=== PATIENT | female | born 1950 | race Caucasian/White ===

== ENCOUNTER → 2018-08-18 | Outpatient (CLI) | payer MEDICARE, BC ==
[2018-08-18 16:12] LABS: Anisocytosis Slight; HCT 35.9 % (34.0-46.0); HGB 11.4 gm/dL (11.4-16.0); MCH 29.3 pg (25.0-35.0); MCHC 31.8 g/dL (31.0-37.0); MCV 92.1 fL (80.0-100.0); Mean Platelet Volume 6.6; Platelet Count 269 k/uL (150-450); RDW 16.4 % (11.5-15.5); WBC 5.3 k/uL (3.8-10.6)
[2018-08-18 16:25] LABS: T4, Free (Free Thyroxine) 0.85 ng/dL (0.78-2.19)
== END ==
LOC: LABWHC1 15:16
PROVIDERS: ATTEND Internal Medicine Endocrinology, Diabetes & Metabolism
DX: E05.20 Thyrotoxicosis with toxic multinodular goiter without thyrotoxic crisis or storm (principal); E66.3 Overweight
CPT/HCPCS: 36415; 84439; 84443; 84450; 84460; 84481; 85027

== ENCOUNTER → 2018-09-05 | Outpatient (CLI) | payer MEDICARE, BC ==
--- NOTE | 2018-09-05 15:26 | US ---
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 GLAND SIZE: Right Lobe: 5.8 x 2.4 x 2.6 cm Overall Parenchyma: heterogenous Left Lobe: 5.6 x 2.0 x 2.1 cm Overall Parenchyma: heterogeneous Isthmus Thickness: 0.6 cm NODULES RIGHT: # of nodules measured on right: 4 1. 2.6 X 2.1 x 2.1 cm hypoechoic mixed nodule at the lower pole with well-defined margins; present with microcalcifications. This nodule is wider than tall and shows intranodular vascularity. Prior size: no prior 2. 1.1 X 0.9 x 1.0 cm hypoechoic mixed nodule at the upper pole with well-defined margins; . This n odule is wider than tall and shows intranodular vascularity. Prior size: no prior 3. 1.1 X 0.7 x 0.9 cm isoechoic mixed nodule at the upper pole with well-defined margins; . This no dule is wider than tall and shows intranodular vascularity. Prior size: no prior 4. 2.0 X 1.8 x 1.9 cm isoechoic mixed nodule at the mid pole with well-defined margins; . This nodu le is wider than tall and shows intranodular vascularity. Prior size: no prior LEFT: # of nodules measured on left: 1 1. 1.9 X 1.0 x 1.5 cm isoechoic mixed nodule at the mid pole with well-defined margins; . This nod ule is wider than tall and shows intranodular vascularity. Prior size: no prior ISTHMUS: # of nodules measured in the isthmus: 0 Bilateral neck scanned, no evidence of lymphadenopathy. There are bilaterally numerous nodules seen. the most prominent on the right are measured.Three are l ateral and the largest with calcifications is located medially. On the left lobe there are numerous n odules that are difficult to distinguish individually. One nodule measured that has distinct borders. IMPRESSION: 1. Multinodular goiter. 2. There are some lymph nodes larger than 1 cm within the right lobe thyroid. Consider correlation [facility] scan. Consider biopsy.
== END | disposition home or self-care (01) ==
LOC: RADUSWWP 14:44
PROVIDERS: ATTEND Internal Medicine Endocrinology, Diabetes & Metabolism
DX: E05.20 Thyrotoxicosis with toxic multinodular goiter without thyrotoxic crisis or storm (principal); E66.3 Overweight
CPT/HCPCS: 76536

== ENCOUNTER → 2018-11-27 | Outpatient (CLI) | payer MEDICARE, BC ==
[2018-11-27 12:51] LABS: HCT 38.4 % (34.0-46.0); HGB 12.5 gm/dL (11.4-16.0); MCH 30.7 pg (25.0-35.0); MCHC 32.5 g/dL (31.0-37.0); MCV 94.3 fL (80.0-100.0); Platelet Count 256 k/uL (150-450); RBC 4.07 m/uL (3.80-5.40); RDW 14.6 % (11.5-15.5); WBC 4.3 k/uL (3.8-10.6)
[2018-11-27 20:30] LABS: T4, Free (Free Thyroxine) 1.1 ng/dL (0.80-1.80)
== END | disposition home or self-care (01) ==
LOC: LABWHC1 11:34
PROVIDERS: ATTEND Internal Medicine Endocrinology, Diabetes & Metabolism
DX: E05.20 Thyrotoxicosis with toxic multinodular goiter without thyrotoxic crisis or storm (principal); E66.3 Overweight; D70.2 Other drug-induced agranulocytosis; K71.9 Toxic liver disease, unspecified
CPT/HCPCS: 36415; 84439; 84443; 84450; 84460; 84481; 85027

== ENCOUNTER → 2018-12-15 | Outpatient (CLI) | payer MEDICARE, BC ==
--- NOTE | 2018-12-16 02:03 | MR ---
EXAMINATION TYPE: MR iac wo/w con DATE OF EXAM: 12/15/2018 COMPARISON: None HISTORY: Rt sided hearing loss, dizziness TECHNIQUE: Multiplanar, multisequence images of the brain and brainstem is performed without and with IV contras t, utilizing 7.5 mL intravenous Gadavist . FINDINGS: There is mild cerebral cortical atrophy. There is no mass effect nor midline shift. There i s no sign of intracranial hemorrhage. There is no evidence of a cortical infarct. Brainstem is intact . There are stable tiny areas of increased signal in the white matter of both cerebral hemispheres th at measure up to 3 mm of doubtful significance. This could relate to minimal chronic small vessel isc hemia. Brainstem appears intact. Corpus callosum is intact. Sella turcica appears normal. The acoustic nerve and vestibular nerves appear normal. Internal auditory canals appear normal. There is no evidence of cerebellopontine angle mass. Temporal bones have normal signal pattern. There is no evidence of mast oiditis. The contrast images show no pathologic enhancement. There is normal enhancement of the venou s sinuses. IMPRESSION: There is cerebral atrophy appropriate for age. Negative MR scan of the internal auditory canals. I do not see a cause for hearing loss.
== END | disposition home or self-care (01) ==
LOC: RADMRIMAIN 12:42
PROVIDERS: ATTEND Otolaryngology
DX: G31.9 Degenerative disease of nervous system, unspecified (principal)
CPT/HCPCS: 82565; 70553; 36415; A9585

== ENCOUNTER → 2019-01-05 | Outpatient (CLI) | payer MEDICARE, BC ==
[2019-01-05 15:48] LABS: HCT 39.6 % (34.0-46.0); HGB 12.8 gm/dL (11.4-16.0); MCH 30.2 pg (25.0-35.0); MCHC 32.4 g/dL (31.0-37.0); MCV 93.1 fL (80.0-100.0); Mean Platelet Volume 6.7; Platelet Count 293 k/uL (150-450); RBC 4.25 m/uL (3.80-5.40); RDW 14.3 % (11.5-15.5); WBC 5.8 k/uL (3.8-10.6)
== END | disposition home or self-care (01) ==
LOC: LABWHC1 14:55
PROVIDERS: ATTEND Internal Medicine Endocrinology, Diabetes & Metabolism
DX: D70.2 Other drug-induced agranulocytosis (principal); K71.9 Toxic liver disease, unspecified; E66.3 Overweight; E05.20 Thyrotoxicosis with toxic multinodular goiter without thyrotoxic crisis or storm
CPT/HCPCS: 36415; 84439; 84443; 84450; 84460; 84481; 85027

== ENCOUNTER → 2019-03-24 | Outpatient (CLI) | payer MEDICARE, BC ==
[2019-03-25 00:40] LABS: T4, Free (Free Thyroxine) 0.8 ng/dL (0.80-1.80)
== END | disposition home or self-care (01) ==
LOC: LABWHC1 15:40
PROVIDERS: ATTEND Internal Medicine Endocrinology, Diabetes & Metabolism
DX: D70.2 Other drug-induced agranulocytosis (principal); K71.9 Toxic liver disease, unspecified; E05.20 Thyrotoxicosis with toxic multinodular goiter without thyrotoxic crisis or storm
CPT/HCPCS: 36415; 84439; 84443

== ENCOUNTER → 2019-04-20 | Outpatient (CLI) | payer MEDICARE, BC ==
--- NOTE | 2019-04-29 09:52 | MM ---
Reason for exam: screening (asymptomatic). Last mammogram was performed 2 years and 8 months ago. History: Patient is postmenopausal, has history of colon cancer at age 63, history of other cancer, and is nulliparous. Physical Findings: A clinical breast exam by your physician is recommended on an annual basis and results should be correlated with mammographic findings. MG 3D Screening Mammo W/Cad Bilateral CC and MLO view(s) were taken. Prior study comparison: August 07, 2016, mammogram. March 15, 2014, mammogram. The breast tissue is heterogeneously dense. This may lower the sensitivity of mammography. Stable benign calcifications. There is no discrete abnormality. No significant changes when compared with prior studies. ASSESSMENT: Benign, BI-RAD 2 RECOMMENDATION: Routine screening mammogram of both breasts in 1 year.
== END | disposition home or self-care (01) ==
LOC: RADMAMWWP 14:28
PROVIDERS: ATTEND Internal Medicine
DX: Z12.31 Encounter for screening mammogram for malignant neoplasm of breast (principal)
CPT/HCPCS: 77063; 77067

== ENCOUNTER → 2019-05-06 | Outpatient (CLI) | payer MEDICARE, BC | END | disposition home or self-care (01) | LOC: LABWHC1 15:30 | PROVIDERS: ATTEND Internal Medicine Endocrinology, Diabetes & Metabolism | DX: D70.2 Other drug-induced agranulocytosis (principal); E05.20 Thyrotoxicosis with toxic multinodular goiter without thyrotoxic crisis or storm; K71.9 Toxic liver disease, unspecified | CPT/HCPCS: 36415; 84439; 84443 ==

== ENCOUNTER → 2019-07-06 | Outpatient (CLI) | payer MEDICARE, BC ==
[2019-07-06 14:18] LABS: HGB 12.3 gm/dL (11.4-16.0); MCHC 33.3 g/dL (31.0-37.0); MCV 92.9 fL (80.0-100.0); Mean Platelet Volume 6.9; Platelet Count 228 k/uL (150-450); RBC 3.98 m/uL (3.80-5.40); RDW 14.7 % (11.5-15.5); WBC 4.9 k/uL (3.8-10.6)
[2019-07-06 14:30] LABS: ALT 32 U/L (9-52); AST 31 U/L (14-36); African American GFR (CKD) >90 (>60 ml/min/1.73 sqM); Albumin 4.4 g/dL (3.5-5.0); Alkaline Phosphatase 110 U/L (38-126); Anion Gap 6 mmol/L; Blood Urea Nitrogen 19 mg/dL (7-17); Calcium 9.5 mg/dL (8.4-10.2); Carbon Dioxide 32 mmol/L (22-30); Chloride 102 mmol/L (98-107); Glucose 136 mg/dL (74-99); Potassium 4.6 mmol/L (3.5-5.1); Sodium 140 mmol/L (137-145); Total Bilirubin 0.4 mg/dL (0.2-1.3); Total Protein 7.3 g/dL (6.3-8.2)
--- NOTE | 2019-07-06 15:47 | CT ---
EXAMINATION TYPE: CT abdomen pelvis w con DATE OF EXAM: 07/06/2019 COMPARISON: None HISTORY: Malignant neoplasm of sigmoid colon. CT DLP: 867.2 mGycm CONTRAST: CT scan of the abdomen and pelvis is performed with Oral Contrast and with IV Contrast, patient injec vy with 100ml mL of Isovue 300. FINDINGS: LUNG BASES-: No visible nodule. No infiltrate. Basilar linear atelectasis or parenchymal scarring. LIVER/GB: Kurtis drainage catheter noted in place. Cholecystectomy clips identified. Intrahepatic bili jere ductal dilatation with small amount of pneumobilia. No space-occupying hepatic lesions detected. PANCREAS: No inflammation. No distinct mass. SPLEEN: No splenic enlargement. No lesion seen. ADRENALS: No nodule. No thickening. KIDNEYS/BLADDER: No hydronephrosis. No nephrolithiasis. No distinct renal mass. Urinary bladder g rossly unremarkable. BOWEL: Normal appendix. Partial resection sigmoid colon without evidence for recurrent mass. Normal bowel caliber. No inflammation. GENITAL ORGANS: No gross abnormality. LYMPH NODES: No greater than 1cm abdominal or pelvic lymph nodes are appreciated. AORTA: No significant abnormality. OSSEOUS STRUCTURES: No significant abnormality is seen. OTHER: No significant additional abnormality is seen. IMPRESSION: 1. No evidence for metastatic disease or recurrent disease. 2. Biliary catheter with intrahepatic biliary ductal dilatation and small amount of pneumobilia.
== END | disposition home or self-care (01) ==
LOC: RADCTMAIN 13:20
PROVIDERS: ATTEND Internal Medicine
DX: K83.8 Other specified diseases of biliary tract (principal); D64.9 Anemia, unspecified
CPT/HCPCS: 80053; 85027; 74177; 36415; Q9967

== ENCOUNTER → 2019-07-20 | Outpatient (CLI) | payer MEDICARE, BC ==
[2019-07-20 14:44] LABS: HGB 11.6 gm/dL (11.4-16.0); MCH 30.4 pg (25.0-35.0); MCHC 32.3 g/dL (31.0-37.0); MCV 94.1 fL (80.0-100.0); Mean Platelet Volume 6.4; Platelet Count 256 k/uL (150-450); RBC 3.83 m/uL (3.80-5.40); RDW 14.8 % (11.5-15.5); WBC 5.1 k/uL (3.8-10.6)
[2019-07-20 20:20] LABS: T4, Free (Free Thyroxine) 0.9 ng/dL (0.80-1.80)
== END | disposition home or self-care (01) ==
LOC: LABWHC1 13:46
PROVIDERS: ATTEND Internal Medicine Endocrinology, Diabetes & Metabolism
DX: D70.2 Other drug-induced agranulocytosis (principal); K71.9 Toxic liver disease, unspecified; E05.21 Thyrotoxicosis with toxic multinodular goiter with thyrotoxic crisis or storm
CPT/HCPCS: 36415; 84439; 84443; 84450; 84460; 85027

== ENCOUNTER → 2019-09-08 | Outpatient (CLI) | payer MEDICARE, BC ==
[2019-09-08 14:13] LABS: HCT 37.2 % (34.0-46.0); HGB 12.3 gm/dL (11.4-16.0); MCH 31.6 pg (25.0-35.0); MCV 95.9 fL (80.0-100.0); Mean Platelet Volume 5.5; Platelet Count 269 k/uL (150-450); RBC 3.88 m/uL (3.80-5.40); WBC 5.1 k/uL (3.8-10.6)
[2019-09-08 20:00] LABS: T4, Free (Free Thyroxine) 0.9 ng/dL (0.80-1.80)
== END | disposition home or self-care (01) ==
LOC: LABWHC1 13:23
PROVIDERS: ATTEND Internal Medicine Endocrinology, Diabetes & Metabolism
DX: E05.21 Thyrotoxicosis with toxic multinodular goiter with thyrotoxic crisis or storm (principal); K71.9 Toxic liver disease, unspecified; D70.2 Other drug-induced agranulocytosis
CPT/HCPCS: 36415; 84439; 84443; 84450; 84460; 85027

== ENCOUNTER → 2019-10-12 | Outpatient (CLI) | payer MEDICARE, BC ==
[2019-10-12 14:06] LABS: Basophils % (A) 1 %; Eosinophils % (A) 1 %; HCT 39.6 % (34.0-46.0); HGB 12.8 gm/dL (11.4-16.0); Lymphocytes # (A) 1.1 k/uL (1.0-4.8); Lymphocytes % (A) 26 %; MCH 30.7 pg (25.0-35.0); MCHC 32.3 g/dL (31.0-37.0); MCV 95.2 fL (80.0-100.0); Mean Platelet Volume 6.9; Monocytes # (A) 0.2 k/uL (0-1.0); Monocytes % (A) 4 %; Neutrophils # (A) 2.8 k/uL (1.3-7.7); Neutrophils % (A) 66 %; Platelet Count 261 k/uL (150-450); RBC 4.16 m/uL (3.80-5.40); RDW 14.1 % (11.5-15.5); WBC 4.1 k/uL (3.8-10.6)
[2019-10-12 19:24] LABS: % Iron Saturation 26.81 (12.00-45.00); Albumin 4.4 g/dL (3.80-4.90); Albumin/Globulin Ratio 2.44 (1.60-3.17); Anion Gap 5.9 mmol/L (4.00-12.00); BUN/Creat Ratio 28.33 Ratio (12.00-20.00); Calcium 9.3 mg/dL (8.7-10.3); Carbon Dioxide 29.1 mmol/L (21.6-31.8); Globulin 1.8 g/dL (1.6-3.3); Non-African American GFR(CKD) 92.4 (60.0-200.0); Potassium 4.5 mmol/L (3.5-5.5); Total Bilirubin 0.3 mg/dL (0.2-1.2); Total Protein 6.2 g/dL (6.2-8.2)
[2019-10-12 19:43] LABS: Ferritin 18.8 ng/mL (10.0-291.0)
== END | disposition home or self-care (01) ==
LOC: LABWHC1 13:15
PROVIDERS: ATTEND Internal Medicine
DX: C18.7 Malignant neoplasm of sigmoid colon (principal); D64.9 Anemia, unspecified
CPT/HCPCS: 36415; 80053; 82378; 82728; 83540; 83550; 85025

== ENCOUNTER → 2019-10-15 | Outpatient (CLI) | payer MEDICARE, BC ==
--- NOTE | 2019-10-15 15:20 | CT ---
EXAMINATION TYPE: CT ChestAbdPelvis wo/w con DATE OF EXAM: 10/15/2019 COMPARISON: CT abdomen and pelvis July 06, 2019 HISTORY: F/u sigmoid ca/adenocarcinoma. CT DLP: 1754.90 mGycm. Automated Exposure Control for Dose Reduction was Utilized. CONTRAST: CT scan of the thorax, abdomen and pelvis is performed with oral and without and with IV Contrast, pa tient injected with 100 mL of Isovue 300. FINDINGS: LUNGS: There are some patchy bibasilar lower long linear scarring and/or atelectasis. No suspicious n ew nodules or masses. MEDIASTINUM: There are no greater than 1 cm hilar or mediastinal lymph nodes. No pericardial effus ion is seen. Mild cardiomegaly redemonstrated. There are scattered thyroid nodules correlate with kn own multinodular thyroid ultrasound September 05, 2018. LIVER/GB: There is persistent percutaneous or external biliary drainage catheter from right aspect wi th stable [id number] intrahepatic biliary dilatation particularly along catheter and pneumobili a left hepatic lobe. Portion of catheter extends into bowel loops similar to prior. Cholecystectomy c lips redemonstrated no heidi hepatis. PANCREAS: Stable ductal dilatation pancreas more prominent near head axial image 26. SPLEEN: No significant abnormality is seen. ADRENALS: No significant abnormality is seen. KIDNEYS: Simple-appearing subcentimeter cyst laterally left kidney image 22 series 8 likely stable. BOWEL: Oral contrast does not reach distal ileal level making evaluation of bowel slightly suboptimal . Surgical sutures from prior colonic surgery and anastomosis sigmoid rectal level pelvis coronal dedra ge 57 are redemonstrated. No suspicious new smaller large bowel dilatation. Some prominence of fecal material throughout the colon noted. Mild wall thickening and mural enhancement and terminal ileum ri ght pelvis coronal image 32. Reference could reflect acute inflammatory change. No suspicious small o r large bowel dilatation. There are suspected distal gastrectomy with nonvisualization of antrum and proximal duodenum and anastomosis of stomach to a prominent bowel loop just inferior to it coronal im age 23 reference. This is unchanged from prior. GENITAL ORGANS: Uterus surgically absent. LYMPH NODES: No greater than 1cm abdominal or pelvic lymph nodes are appreciated. OSSEOUS STRUCTURES: Moderate narrowing of both hip joints.. Multilevel severe narrowing in the visual ized spine. Disc space narrowing lumbosacral junction. Slightly exaggerated thoracic kyphosis. OTHER: No significant additional abnormality is seen. IMPRESSION: No suspicious new mass or adenopathy to suggest neoplastic recurrence.
== END | disposition home or self-care (01) ==
LOC: RADCTMAIN 12:33
PROVIDERS: ATTEND Internal Medicine
DX: C18.7 Malignant neoplasm of sigmoid colon (principal); D64.9 Anemia, unspecified
CPT/HCPCS: 71270; 74178; 36415; Q9967

== ENCOUNTER → 2020-03-01 | Outpatient (CLI) | payer MEDICARE, BC ==
[2020-03-01 12:07] LABS: HCT 37.1 % (34.0-46.0); HGB 11.6 gm/dL (11.4-16.0); Hypochromasia Slight; MCH 30.4 pg (25.0-35.0); MCHC 31.2 g/dL (31.0-37.0); MCV 97.6 fL (80.0-100.0); Mean Platelet Volume 6.9; Platelet Count 223 k/uL (150-450); RDW 14.1 % (11.5-15.5); WBC 4.2 k/uL (3.8-10.6)
== END | disposition home or self-care (01) ==
LOC: LABWHC1 10:54
PROVIDERS: ATTEND Internal Medicine Endocrinology, Diabetes & Metabolism
DX: E05.20 Thyrotoxicosis with toxic multinodular goiter without thyrotoxic crisis or storm (principal); K71.9 Toxic liver disease, unspecified; D70.2 Other drug-induced agranulocytosis; E66.8 Other obesity
CPT/HCPCS: 36415; 84439; 84443; 84450; 84460; 84481; 85027

== ENCOUNTER 2020-05-12 05:48 | Inpatient (IN) | payer MEDICARE, BC ==
[2020-05-12] MEDS ORDERED: PANTOPRAZOLE 40 MG/10 ML VIAL IVP STA (06:10)
[2020-05-12] MEDS ORDERED: MORPHINE SULFATE 4 MG/ML SYRINGE IV STA (06:10)
[2020-05-12] MEDS ORDERED: SODIUM CHLORIDE 0.9% 1,000 ML IV STA ×2 (06:10)
[2020-05-12] MEDS ORDERED: ONDANSETRON 4 MG/2 ML VIAL IVP STA (06:10)
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
[2020-05-12 06:35] LABS: Basophils % (A) 0 %; Eosinophils # (A) 0.1 k/uL (0-0.7); Eosinophils % (A) 1 %; HCT 37.9 % (34.0-46.0); HGB 12.5 gm/dL (11.4-16.0); Lymphocytes # (A) 0.5 k/uL (1.0-4.8); Lymphocytes % (A) 7 %; MCH 31.6 pg (25.0-35.0); MCV 95.8 fL (80.0-100.0); Mean Platelet Volume 6.8; Monocytes # (A) 0.3 k/uL (0-1.0); Monocytes % (A) 4 %; Neutrophils # (A) 6.7 k/uL (1.3-7.7); Neutrophils % (A) 88 %; Platelet Count 243 k/uL (150-450); RBC 3.96 m/uL (3.80-5.40); WBC 7.7 k/uL (3.8-10.6)
[2020-05-12 06:47] LABS: ALT 23 U/L (4-34); AST 26 U/L (14-36); African American GFR (CKD) >90 (>60 ml/min/1.73 sqM); Albumin 4.3 g/dL (3.5-5.0); Alkaline Phosphatase 121 U/L (38-126); Amylase 136 U/L (30-110); Anion Gap 7 mmol/L; Blood Urea Nitrogen 16 mg/dL (7-17); Calcium 9.6 mg/dL (8.4-10.2); Carbon Dioxide 27 mmol/L (22-30); Chloride 106 mmol/L (98-107); Glucose 169 mg/dL (74-99); Non-African American GFR(CKD) >90 (>60 ml/min/1.73 sqM); Sodium 140 mmol/L (137-145); Total Bilirubin 0.6 mg/dL (0.2-1.3); Total Protein 6.9 g/dL (6.3-8.2)
[2020-05-12] MEDS ORDERED: diphenhydrAMINE 50 MG/ML 1 ML VIAL IVP STA (06:51)
[2020-05-12] MEDS ORDERED: METOCLOPRAMIDE 5 MG/ML 2 ML VIAL IVP STA (06:51)
[2020-05-12 06:56] LABS: Prothrombin Time 10.3 sec (9.0-12.0)
[2020-05-12 06:59] LABS: Partial Thromboplastin Time 21.9 sec (22.0-30.0)
[2020-05-12 07:24] LABS: Appearance,Urine Clear (Clear); Bilirubin,Urine Negative (Negative); Blood,Urine Small (Negative); Calcium Oxalate Crystals,Urine Occasional /hpf; Color,Urine Yellow; Glucose,Urine (UA) Trace (Negative); Hyaline Casts,Urine 1 /lpf (0-2); Ketones,Urine 1+ (Negative); Leukocyte Esterase,Urine Negative (Negative); Mucus,Urine Few /hpf; Nitrite,Urine Negative (Negative); Protein,Urine Trace (Negative); RBC,Urine 6 /hpf (0-5); Specific Gravity,Urine 1.024 (1.001-1.035); Squamous Epithelial Cell,Urine <1 /hpf (0-4); Urobilinogen,Urine <2.0 mg/dL (<2.0); WBC,Urine 1 /hpf (0-5)
--- NOTE | 2020-05-12 08:28 | CT ---
EXAMINATION TYPE: CT abdomen pelvis w con DATE OF EXAM: 05/12/2020 COMPARISON: 10/15/2019 HISTORY: 69-year-old female with left-sided abdominal pain, Hx biliary drain TECHNIQUE: Contiguous axial scanning of the abdomen and pelvis following administration of 100 ml Iso jose luis 300 IV contrast. Delayed images through the kidneys and coronal/sagittal reconstructions perform ed. CT DLP: 899.9 mGycm Automated exposure control for dose reduction was used. FINDINGS: Heart upper limits of normal in size without pericardial effusion. Strandy atelectasis in the lower l ungs. No pleural effusion. There is an internal/external biliary drain which enters the right hepatic lobe. There are radiopaque marker is at the margin of the liver. An area of hypodensity running along the superior to the shailesh ter tract is unchanged and may relate to either scarring or focal intrahepatic ductal dilatation. There is continued mild intrahepatic biliary ductal dilatation within the left hepatic lobe. Pneumobi nila has increased in the interval. 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 Otherwise, the portal venous system appears patent. A gastrojejunostomy is present. There is edematous wall thickening of the stomach with surrounding fat stranding and tracking edema. Some of this tracking edema encompasses the retroperitoneum and peripancreatic region. There is incre ase in the degree of dilatation of the main pancreatic duct now obtained millimeters versus 4 mm, pre viously. No discrete well-formed fluid collection is identified. Edema tracks down the left retroperitoneum. No dilated small bowel are otherwise any free fluid or free air. A few mildly enlarged mid mesenteric lymph nodes are unchanged measuring up to 9 mm, refer to coronal image 33. Some tightly clustered small bowel loops in the anterior pelvis. Normal appendix. There is moderate stool burden. No pericolonic inflammatory change. Bladder under distended. Uterus surgically absent. Neither ovary clearly seen. There is a staple line at the rectosigmoid junction from prior bowel resection and re-anastomosis. Bones: Moderate to severe degenerative change left hip. Mild to moderate degenerative disc disease mi d to lower lumbar spine along with hypertrophic facet arthropathy. IMPRESSION: 1. STATUS POST GASTROJEJUNOSTOMY. MODERATE EDEMATOUS THICKENING AND INFLAMMATION SEEMS TO BE CENTERED AT THE BODY OF THE STOMACH. INFLAMMATION SEEMS TO TRACK ALONG THE RETROPERITONEUM AND ALSO INVOLVE T HE PANCREATIC BODY. THERE IS INCREASE IN DEGREE OF MAIN PANCREATIC DUCT DILATATION UP TO 8 MM NOW MARIUM JUANITA 4 MM, PREVIOUSLY. CORRELATE FOR ACUTE INTERSTITIAL PANCREATITIS AND/OR ACUTE GASTRITIS. 2. THERE IS INFLAMMATORY EDEMA TRACKING DOWN THE LEFT RETROPERITONEUM BUT NO DISCRETE PERIPANCREATIC FLUID COLLECTION. 3. A RIGHT-SIDED EXTERNAL/INTERNAL BILIARY DRAIN REMAINS IN PLACE. THERE IS SIMILAR MILD INTRAHEPATIC BILIARY DUCTAL DILATATION. PNEUMOBILIA HAS INCREASED IN THE INTERVAL POSSIBLY RELATING TO CATHETER O R DRAINAGE BAG MANIPULATION. CLINICALLY CORRELATE. THE RADIOPAQUE MARKER REMAINS SITUATED ALONG THE P ERIPHERY OF THE LIVER. 4. 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
[2020-05-12] MEDS ORDERED: NALOXONE 0.4 MG/ML 1 ML VIAL IV PRN (09:48)
[2020-05-12] MEDS ORDERED: KETOROLAC 30 MG/ML 1 ML VIAL IVP PRN (09:48)
[2020-05-12] MEDS ORDERED: ACETAMINOPHEN TAB 325 MG TAB PO PRN (09:48)
[2020-05-12] MEDS ORDERED: ONDANSETRON 4 MG/2 ML VIAL IVP PRN (09:48)
[2020-05-12] MEDS: MORPHINE SULFATE 4 MG/ML SYRINGE IV PRN ×2 (11:07→18:42)
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
[2020-05-12] MEDS: SODIUM CHLORIDE 0.9% 1,000 ML IV SCH ×2 (17:17→22:34)
[2020-05-13] MEDS: MORPHINE SULFATE 4 MG/ML SYRINGE IV PRN (04:35)
[2020-05-13] MEDS: SODIUM CHLORIDE 0.9% 1,000 ML IV SCH (06:17)
[2020-05-13 07:49] LABS: HGB 10.5 gm/dL (11.4-16.0); MCH 31.8 pg (25.0-35.0); MCHC 32.9 g/dL (31.0-37.0); MCV 96.4 fL (80.0-100.0); Platelet Count 194 k/uL (150-450); RBC 3.32 m/uL (3.80-5.40); RDW 13.8 % (11.5-15.5); WBC 3.9 k/uL (3.8-10.6)
[2020-05-13 08:07] LABS: ALT 16 U/L (4-34); AST 18 U/L (14-36); African American GFR (CKD) >90 (>60 ml/min/1.73 sqM); Alkaline Phosphatase 85 U/L (38-126); Anion Gap 2 mmol/L; Blood Urea Nitrogen 16 mg/dL (7-17); Calcium 8.3 mg/dL (8.4-10.2); Carbon Dioxide 28 mmol/L (22-30); Chloride 109 mmol/L (98-107); Glucose 115 mg/dL (74-99); Non-African American GFR(CKD) >90 (>60 ml/min/1.73 sqM); Potassium 4.1 mmol/L (3.5-5.1); Sodium 139 mmol/L (137-145); Total Bilirubin 0.8 mg/dL (0.2-1.3); Total Protein 5.2 g/dL (6.3-8.2)
[2020-05-13] MEDS ORDERED: PANTOPRAZOLE 40 MG/10 ML VIAL IV SCH (09:00)
[2020-05-13] MEDS ORDERED: METHIMAZOLE 5 MG TAB PO SCH (09:00)
[2020-05-13] MEDS ORDERED: FAMOTIDINE 20 MG/2 ML VIAL IV SCH (09:15)
[2020-05-13] MEDS ORDERED: SENNOSIDES 8.6 MG TAB PO PRN (12:25)
[2020-05-13 13:03] VITALS: BMI 28.0
[2020-05-13 14:07] VITALS: BP 127/62; PULSE 71; RESP 20; TEMP 98.3
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
== END 2020-05-13 16:29 | disposition home or self-care (01) | DRG 440 ==
LOC: EC 05:48 → 5NMEDONC 09:48
PROVIDERS: ADMIT Internal Medicine; ATTEND Internal Medicine
DX: K85.90 Acute pancreatitis without necrosis or infection, unspecified (principal); K76.0 Fatty (change of) liver, not elsewhere classified; E03.9 Hypothyroidism, unspecified; H91.90 Unspecified hearing loss, unspecified ear; J45.909 Unspecified asthma, uncomplicated; K21.9 Gastro-esophageal reflux disease without esophagitis; Z11.59 Encounter for screening for other viral diseases; K29.70 Gastritis, unspecified, without bleeding; H26.9 Unspecified cataract; Z79.899 Other long term (current) drug therapy; Z85.038 Personal history of other malignant neoplasm of large intestine; Z87.891 Personal history of nicotine dependence; Z90.710 Acquired absence of both cervix and uterus; Z90.49 Acquired absence of other specified parts of digestive tract; Z90.3 Acquired absence of stomach [part of]; Z90.411 Acquired partial absence of pancreas; Z88.1 Allergy status to other antibiotic agents; Z88.5 Allergy status to narcotic agent; Z87.01 Personal history of pneumonia (recurrent); Z87.440 Personal history of urinary (tract) infections; Z80.0 Family history of malignant neoplasm of digestive organs; Z80.7 Family history of other malignant neoplasms of lymphoid, hematopoietic and related tissues
CPT/HCPCS: 36415; 74177; 80053; 81001; 82150; 83605; 83690; 85025; 85027; 85610; 85730; 96361; 96374; 96375; 96376; 99285

== ENCOUNTER → 2020-07-25 | Outpatient (CLI) | payer MEDICARE, BC ==
[2020-07-25 10:37] LABS: HCT 34.7 % (34.0-46.0); HGB 11.1 gm/dL (11.4-16.0); MCH 30.4 pg (25.0-35.0); MCV 95.2 fL (80.0-100.0); Mean Platelet Volume 6.5; Platelet Count 217 k/uL (150-450); RBC 3.65 m/uL (3.80-5.40); WBC 3.6 k/uL (3.8-10.6)
[2020-07-25 11:12] LABS: T4, Free (Free Thyroxine) 0.96 ng/dL (0.78-2.19)
--- NOTE | 2020-07-25 15:53 | US ---
EXAMINATION TYPE: US thyroid st tissue head/neck DATE OF EXAM: 07/25/2020 COMPARISON: US 09/05/18 CLINICAL HISTORY: E05.00 Thyrotoxicosis. Hyperthyroidism; on thyroid medication GLAND SIZE: Right Lobe: 5.1 x 3.2 x 2.2 cm Overall Parenchyma: heterogenous Left Lobe: 4.9 x 2.1 x 2.3 cm Overall Parenchyma: heterogeneous Isthmus Thickness: 0.8 cm NODULES RIGHT: # of nodules measured on right: 4 1. 2.7 X 1.6 x 2.1 cm hypoechoic mixed nodule at the lower pole with well-defined margins.. This n odule is wider than tall and shows intranodular vascularity. Prior size: 2.6 x 2.1 x 2.1 cm 2. 2.0 X 1.7 x 1.3 cm isoechoic solid nodule at the lower pole with well-defined margins.. This nod ule is taller than wide and shows intranodular vascularity. Prior size: 2.0 x 1.8 x 1.9 cm 3. 1.2 X 1.0 x 1.0 cm hypoechoic mixed nodule at the mid pole with well-defined margins.. This nodu le is taller than wide and shows intranodular vascularity. Prior size: 1.1 x 0.9 x 1.0 cm 4. 1.2 X 0.9 x 1.1 cm hypoechoic mixed nodule at the lower pole with well-defined margins. This nod ule is taller than wide and shows intranodular vascularity. LEFT: # of nodules measured on left: 3 1. 2.0 X 0.9 x 1.7 cm isoechoic solid nodule at the lower pole with well-defined margins. This nod ule is wider than tall and shows intranodular vascularity. Prior size: 1.9 x 1.0 x 1.5 cm 2. 1.4 X 0.7 x 1.1 cm hypoechoic mixed nodule at the lower pole with well-defined margins. This nodu le is wider than tall and shows intranodular vascularity. 3. 1.1 X 0.9 x 1.1 cm isoechoic solid nodule at the lower pole with well-defined margins. This nodul e is wider than tall and shows intranodular vascularity. ISTHMUS: # of nodules measured in the isthmus: 1 1. 1.4 X 0.9 x 1.0 cm hypoechoic mixed nodule at the lower pole with well-defined margins. This nod ule is wider than tall and shows intranodular vascularity. Bilateral neck scanned, no evidence of lymphadenopathy. There are multiple nodules seen bilaterally. IMPRESSION: Heterogenous appearing thyroid with multiple nodules
== END | disposition home or self-care (01) ==
LOC: RADUSWWP 09:29
PROVIDERS: ATTEND Internal Medicine Endocrinology, Diabetes & Metabolism
DX: E04.2 Nontoxic multinodular goiter (principal); E05.00 Thyrotoxicosis with diffuse goiter without thyrotoxic crisis or storm; K71.9 Toxic liver disease, unspecified; D70.2 Other drug-induced agranulocytosis; E66.8 Other obesity; M85.80 Other specified disorders of bone density and structure, unspecified site
CPT/HCPCS: 36415; 76536; 84439; 84443; 84450; 84460; 85027

== ENCOUNTER → 2020-08-11 | Outpatient (CLI) | payer MEDICARE, BC ==
[2020-08-11 13:55] LABS: Basophils % (A) 1 %; Eosinophils # (A) 0.1 k/uL (0-0.7); Eosinophils % (A) 1 %; HCT 38.8 % (34.0-46.0); HGB 12.5 gm/dL (11.4-16.0); Lymphocytes % (A) 26 %; MCH 31.7 pg (25.0-35.0); MCHC 32.2 g/dL (31.0-37.0); MCV 98.4 fL (80.0-100.0); Mean Platelet Volume 6.7; Monocytes # (A) 0.2 k/uL (0-1.0); Monocytes % (A) 6 %; Neutrophils # (A) 2.5 k/uL (1.3-7.7); Neutrophils % (A) 63 %; Platelet Count 224 k/uL (150-450); RBC 3.95 m/uL (3.80-5.40)
[2020-08-11 14:13] LABS: ALT 26 U/L (4-34); AST 32 U/L (14-36); African American GFR (CKD) >90 (>60 ml/min/1.73 sqM); Albumin 4.4 g/dL (3.5-5.0); Alkaline Phosphatase 120 U/L (38-126); Anion Gap 5 mmol/L; Blood Urea Nitrogen 17 mg/dL (7-17); Calcium 9.7 mg/dL (8.4-10.2); Carbon Dioxide 32 mmol/L (22-30); Chloride 103 mmol/L (98-107); Glucose 107 mg/dL (74-99); Non-African American GFR(CKD) >90 (>60 ml/min/1.73 sqM); Potassium 4.9 mmol/L (3.5-5.1); Sodium 140 mmol/L (137-145); Total Bilirubin 0.5 mg/dL (0.2-1.3)
--- NOTE | 2020-08-11 15:42 | CT ---
EXAMINATION TYPE: CT abdomen pelvis w con DATE OF EXAM: 08/11/2020 COMPARISON: 05/12/2020 and 10/15/2019 HISTORY: 69-year-old female history of sigmoid Colon cancer, recurrence of colon cancer. TECHNIQUE: Contiguous axial scanning of the abdomen and pelvis following administration of 100 ml Iso jose luis 300 IV contrast. Delayed images through the kidneys and coronal/sagittal reconstructions perform ed. CT DLP: 572.5 mGycm Automated exposure control for dose reduction was used. FINDINGS: Heart upper limits of normal in size without pericardial effusion. Strandy atelectasis at the left ba se without pleural effusion. Tiny hiatal hernia. Prominent oral contrast within the stomach with postsurgical changes of gastrojejunostomy. There is s ome reflux of contrast to fill the excluded duodenum. Stable positioning of the patient's right-sided biliary drain. Some scattered pneumobilia is redemons trated. No new suspicious focal lesion identified within the liver. 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 Adrenal glands, right kidney, and spleen appear within normal limits. A couple subcentimeter hypodens ities within the left kidney measuring up to 8 mm, likely small cysts. Overall main pancreatic duct caliber is slightly improved at 5 mm versus 8 mm, previously. However, u nable to exclude a subtle 2.2 cm lesion of the distal pancreatic body resulting in cut off of the kaplan creatic duct, refer to axial image 25. Inflammatory changes previously seen centered along the stomach and pancreas have resolved. Few scattered benign size lymph nodes are noted in the mid mesentery measuring up to 8 mm and these s eem to have been present back to 10/15/2019. Refer to axial image 46. There is moderate to large stool burden. Redundant sigmoid colon. Staple line at the rectosigmoid esperanza ction from prior resection and re-anastomosis. Bladder urine distended. Uterus surgically absent. Neither ovary is visualized. Bones: Severe degenerative change left hip and mild at the right hip. Facet arthropathy lower lumbar spine. No osseous destructive process. IMPRESSION: 1. RESOLUTION OF THE PREVIOUS INFLAMMATION CENTERED AT THE STOMACH AND PANCREAS SEEN ON 05/12/2020. 2. STABLE POSITIONING OF THE PATIENT'S RIGHT-SIDED BILIARY DRAIN WITH SOME SCATTERED PNEUMOBILIA. 3. THERE SEEMS TO BE CUT OFF OF THE MAIN PANCREATIC DUCT AT THE LEVEL OF THE PANCREATIC BODY. QUESTIO NABLE VAGUE 2.2 CM LESION HERE IN THE PANCREAS. CORRELATE WITH TUMOR MARKERS AND POSSIBLE EUS TO FURT HER EVALUATE. IF THESE RETURN NEGATIVE, CLOSE SURVEILLANCE RECOMMENDED TO EXCLUDE A DEVELOPING PANCRE ATIC MASS. 4. A FEW BORDERLINE ENLARGED MID MESENTERIC LYMPH NODES MEASURING UP TO 8 MM ARE UNCHANGED BACK TO . 5. PRIOR RESECTION AND REANASTOMOSIS AT THE RECTOSIGMOID JUNCTION. PREVIOUS GASTROJEJUNOSTOMY.
[2020-08-11 23:32] LABS: % Iron Saturation 22.32 (12.00-45.00); Iron 73 ug/dL (50-170); Total Iron Binding Capacity 327 ug/dL (228-460)
== END | disposition home or self-care (01) ==
LOC: RADCTMAIN 13:00
PROVIDERS: ATTEND Internal Medicine
DX: C18.7 Malignant neoplasm of sigmoid colon (principal); D64.9 Anemia, unspecified; Z98.0 Intestinal bypass and anastomosis status; Z93.4 Other artificial openings of gastrointestinal tract status; Z98.890 Other specified postprocedural states; Z96.89 Presence of other specified functional implants
CPT/HCPCS: 80053; 82607; 82378; 82728; 83540; 83550; 85025; 74177; Q9967

== ENCOUNTER → 2020-09-09 | Outpatient (CLI) | payer MEDICARE, BC ==
--- NOTE | 2020-09-10 02:24 | MR ---
EXAMINATION TYPE: MR abdomen wo/w con DATE OF EXAM: 09/09/2020 COMPARISON: CT scan of the abdomen 08/11/2020 HISTORY: Abnormal CT, Hx of colon ca CONTRAST: Standard multiplanar, multisequence MRI departmental protocol utilizing 7 mL intravenous Gadavist megan olinium contrast. There is some linear fluid signal in the lateral aspect of the right lobe of the liver related to tra ct from the biliary drainage catheter. There is mild prominence of the left hepatic duct but no dilat ion of the right hepatic duct. I see no discrete liver mass. Spleen is intact. Stomach is intact. There is on the T2 images a subtle area of slight decreased signal in the body of the pancreas that m easures approximately 2.5 x 2 cm and this shows lack of enhancement on the contrast images. The remai nder of the pancreas shows normal enhancement. There is mild ectasia of the pancreatic duct in the ta il of the pancreas. The delayed images show some delayed peripheral enhancement of the pancreatic les ion. There is no evidence of adrenal mass. Kidneys show satisfactory contrast opacification. There is no h ydronephrosis. There are small left-sided renal cortical cysts that measure up to 1 cm. There is no ascites. There is no sign of pleural effusion. IMPRESSION: Hypovascular mass in the body of the pancreas posteriorly that appears to be producing some obstructi on of the pancreatic duct which shows some dilation in the tail of the pancreas. Size is not changed compared to the CT scan of 08/11/2020. This could be a primary pancreatic tumor. No focal liver mass seen to suggest metastatic disease. Mild enlargement of the left hepatic ducts unchanged
== END | disposition home or self-care (01) ==
LOC: RADMRIMAIN 17:19
PROVIDERS: ATTEND Internal Medicine
DX: K86.89 Other specified diseases of pancreas (principal); K83.8 Other specified diseases of biliary tract; C18.7 Malignant neoplasm of sigmoid colon
CPT/HCPCS: 74183; A9585

== ENCOUNTER → 2020-11-14 | Outpatient (CLI) | payer MEDICARE, BC ==
[2020-11-14 14:14] LABS: Basophils # (A) 0.1 k/uL (0-0.2); Basophils % (A) 1 %; Eosinophils % (A) 1 %; HCT 37.2 % (34.0-46.0); HGB 12.1 gm/dL (11.4-16.0); Lymphocytes % (A) 22 %; MCHC 32.5 g/dL (31.0-37.0); MCV 92.1 fL (80.0-100.0); Mean Platelet Volume 6.6; Monocytes # (A) 0.3 k/uL (0-1.0); Monocytes % (A) 6 %; Neutrophils # (A) 3.2 k/uL (1.3-7.7); Neutrophils % (A) 70 %; Platelet Count 276 k/uL (150-450); RBC 4.04 m/uL (3.80-5.40); RDW 12.9 % (11.5-15.5); WBC 4.6 k/uL (3.8-10.6)
[2020-11-14 14:27] LABS: ALT 21 U/L (4-34); AST 25 U/L (14-36); African American GFR (CKD) >90 (>60 ml/min/1.73 sqM); Albumin 4.2 g/dL (3.5-5.0); Alkaline Phosphatase 122 U/L (38-126); Anion Gap 5 mmol/L; Blood Urea Nitrogen 15 mg/dL (7-17); Carbon Dioxide 34 mmol/L (22-30); Chloride 102 mmol/L (98-107); Glucose 136 mg/dL (74-99); Non-African American GFR(CKD) >90 (>60 ml/min/1.73 sqM); Potassium 4.7 mmol/L (3.5-5.1); Sodium 141 mmol/L (137-145); Total Bilirubin 0.4 mg/dL (0.2-1.3); Total Protein 7.3 g/dL (6.3-8.2)
--- NOTE | 2020-11-14 15:53 | CT ---
EXAMINATION TYPE: CT abdomen pelvis w con DATE OF EXAM: 11/14/2020 HISTORY: Colon ca CT DLP: 630.30mGycm Automated Exposure Control for Dose Reduction was Utilized. CONTRAST: CT scan of the abdomen and pelvis is performed with oral and with IV Contrast, patient injected with 100 mL of Isovue 300. COMPARISON: CT abdomen and pelvis August 11, 2020 [address] older CTs FINDINGS: LUNG BASES: Mild scattered linear scarring. LIVER/GB: Persistent internal/external biliary drainage catheter with stable mild to moderate extrahe patic and central intrahepatic biliary dilatation with focal scarring along the right aspect of the l iver near site of catheter insertion. This is unchanged from prior study. Cholecystectomy clips are r edemonstrated. Some pneumobilia again seen. PANCREAS: Persistent pancreatic ductal dilatation in the distal body and tail with abrupt cut off axi al image 30. Subcentimeter low dense lesion in the pancreatic duct on axial image 31 is new or more p rominent from prior studies, similar findings seen anterior inferior to this axial image 32 with new subcentimeter low dense lesion. Abnormal irregular soft tissue extends anteriorly with loss of fat pl ane from adjacent surrounding stomach. Abnormal mass or neoplasm in the pancreatic body strongly susp ected seen better on MRI versus CT. Some swirling of mesenteric vessels just below this is redemonstr ated. SPLEEN: No significant abnormality is seen. ADRENALS: No significant abnormality is seen. KIDNEYS: Subcentimeter thin-walled cyst upper pole left kidney redemonstrated. BOWEL: Oral contrast only reaches jejunal loops in the left abdomen. Evaluation of distal bowel is stephens boptimal. No suspicious small or large bowel dilatation. Small bowel feces sign involving ileal loops in the abdomen and pelvis. Findings consistent with delayed passage of ingested material to colonic level. No suspicious jejunal small bowel dilatation. Moderate prominence of fecal material in the rig ht and transverse colon. Surgical sutures sigmoid rectal colon axial image 68. UTERUS/ADNEXA: Uterus surgically absent or markedly atrophic. LYMPH NODES: No new greater than 1cm abdominal or pelvic lymph nodes are appreciated. Prominent mid a bdominal mesenteric lymph nodes unchanged from prior study. OSSEOUS STRUCTURES: Mild multilevel spurring. OTHER: No significant additional abnormality is seen. IMPRESSION: 1. Stable positioning of the internal/external biliary drainage catheter without worsening biliary di latation. 2. Persistent distal pancreatic ductal dilatation and abrupt cut off worrisome for primary pancreatic neoplasm in the mid body. New subcentimeter hypodense lesions and worsening surrounding soft tissue could reflect product of acute pancreatitis, correlate clinically and with pancreatic lab values. 3. Moderate to severe proximal to mid colonic fecal stasis. Overall nonobstructive bowel gas pattern.
[2020-11-15 00:32] LABS: % Iron Saturation 14.44 (12.00-45.00); Iron 41 ug/dL (50-170); Total Iron Binding Capacity 284 ug/dL (228-460)
[2020-11-15 00:41] LABS: Ferritin 67.7 ng/mL (10.0-291.0)
== END | disposition home or self-care (01) ==
LOC: RADCTMAIN 13:24
PROVIDERS: ATTEND Internal Medicine
DX: C18.7 Malignant neoplasm of sigmoid colon (principal); D64.9 Anemia, unspecified
CPT/HCPCS: 80053; 82378; 82728; 83540; 83550; 85025; 82306; 74177; 36415; Q9967

== ENCOUNTER → 2020-11-28 | Outpatient (CLI) | payer MEDICARE, BC ==
[2020-11-28 20:35] LABS: T4, Free (Free Thyroxine) 1.2 ng/dL (0.80-1.80)
== END | disposition home or self-care (01) ==
LOC: LABWHC1 11:07
PROVIDERS: ATTEND Internal Medicine Endocrinology, Diabetes & Metabolism
DX: E05.20 Thyrotoxicosis with toxic multinodular goiter without thyrotoxic crisis or storm (principal); M85.80 Other specified disorders of bone density and structure, unspecified site
CPT/HCPCS: 36415; 84439; 84443; 84450; 84460

== ENCOUNTER 2021-01-21 21:46 | Observation (INO) | payer MEDICARE, BC ==
[2021-01-21] MEDS ORDERED: ACETAMINOPHEN TAB 325 MG TAB PO STA (22:03)
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
[2021-01-21 22:33] LABS: Basophils % (A) 0 %; Eosinophils % (A) 1 %; HCT 31.1 % (34.0-46.0); HGB 10.8 gm/dL (11.4-16.0); Lymphocytes # (A) 0.5 k/uL (1.0-4.8); Lymphocytes % (A) 13 %; MCH 30.7 pg (25.0-35.0); MCHC 34.8 g/dL (31.0-37.0); MCV 88.2 fL (80.0-100.0); Mean Platelet Volume 6.8; Monocytes # (A) 0.2 k/uL (0-1.0); Monocytes % (A) 6 %; Neutrophils % (A) 79 %; Platelet Count 225 k/uL (150-450); RBC 3.53 m/uL (3.80-5.40); RDW 14.4 % (11.5-15.5); WBC 3.8 k/uL (3.8-10.6)
--- NOTE | 2021-01-21 22:56 | XR ---
EXAMINATION TYPE: XR chest 2V DATE OF EXAM: 01/21/2021 COMPARISON: NONE HISTORY: Fever 2 views. Heart and mediastinum are normal. Lungs are clear. Diaphragm is normal. Bony thorax is intact. IMPRESSION: Normal chest.
[2021-01-21 22:59] LABS: INR 1.1 (<1.2); Partial Thromboplastin Time 23.7 sec (22.0-30.0); Prothrombin Time 11.6 sec (9.0-12.0)
[2021-01-21 23:02] LABS: ALT 19 U/L (4-34); AST 20 U/L (14-36); African American GFR (CKD) >90 (>60 ml/min/1.73 sqM); Albumin 3.6 g/dL (3.5-5.0); Alkaline Phosphatase 111 U/L (38-126); Anion Gap 6 mmol/L; Blood Urea Nitrogen 14 mg/dL (7-17); Carbon Dioxide 27 mmol/L (22-30); Chloride 103 mmol/L (98-107); Glucose 178 mg/dL (74-99); Non-African American GFR(CKD) >90 (>60 ml/min/1.73 sqM); Potassium 3.8 mmol/L (3.5-5.1); Sodium 136 mmol/L (137-145); Total Bilirubin 0.6 mg/dL (0.2-1.3); Total Protein 6.1 g/dL (6.3-8.2)
[2021-01-21 23:25] LABS: Appearance,Urine Cloudy (Clear); Bilirubin,Urine Negative (Negative); Blood,Urine Small (Negative); Calcium Oxalate Crystals,Urine Few /hpf; Color,Urine Yellow; Glucose,Urine (UA) 3+ (Negative); Ketones,Urine Negative (Negative); Leukocyte Esterase,Urine Negative (Negative); Mucus,Urine Moderate /hpf; Nitrite,Urine Negative (Negative); PH, Urine 5.5 (5.0-8.0); Protein,Urine 1+ (Negative); RBC,Urine 20 /hpf (0-5); Specific Gravity,Urine 1.017 (1.001-1.035); Squamous Epithelial Cell,Urine <1 /hpf (0-4); WBC,Urine 5 /hpf (0-5)
--- NOTE | 2021-01-22 00:32 | CT ---
EXAMINATION TYPE: CT abdomen pelvis w con DATE OF EXAM: 01/22/2021 COMPARISON: 11/14/2020 HISTORY: abd pain with fever CT DLP: 772.3 mGycm Automated exposure control for dose reduction was used. CONTRAST: Performed with IV Contrast, patient injected with 100 mL of Isovue 370. There is minimal subsegmental atelectasis at the lung bases. There is no pleural effusion. There is n o pericardial effusion. Heart size is normal. There is percutaneous biliary drainage catheter. There is some dilation of anterior hepatic bile duct s. There is 3 cm fluid collection with fluid level at the heidi hepatis. I see no evidence of pancrea tic mass. There is mild ectasia of the proximal pancreatic duct. Spleen is intact. There is also appa rent drainage catheter within the right upper quadrant at the falciform ligament. There is also third catheter which is anterior to the mid transverse colon. There is no adrenal mass. Kidneys show satisfactory contrast opacification. There is no hydronephrosi s. Ureters are not dilated. There is no retroperitoneal adenopathy. There is surgical clip in the ret roperitoneum inferior to the right kidney. There is epigastric ventral hernia that appears to contain transverse colon. Hernia is broad-based and measures 6 cm with thinning of the anterior abdominal wa ll. There is no ascites. Bladder distends smoothly. Ureters are not dilated. There is no evidence of pelv ic mass. There are F there is some retained fecal material in the large bowel. There are clips at the rectosigmoid junction. There appears to be gastric surgery with resection of the gastric antrum. There is normal alignment of the vertebra. There is no lumbar compression fracture. Posterior element s are intact. Bony pelvis is intact. Hip joints are intact. There is hypertrophic spur formation at t he left hip joint involving femoral head and acetabulum. There is left hip joint space mild narrowing . IMPRESSION: Dilated anterior intrahepatic bile ducts. Unchanged. Percutaneous biliary drainage catheter not pedraza ed in position. There is air-fluid level at the heidi hepatis which is increased compared to old exam and could be chronic bile leak. Constipation. Epigastric ventral hernia unchanged. Mildly dilated proximal pancreatic duct could relate to some inflammatory disease. There is clearing of the minimal fat stranding around the pancreas compared to old exam.
[2021-01-22] MEDS ORDERED: NALOXONE 0.4 MG/ML 1 ML VIAL IV PRN (01:10)
[2021-01-22] MEDS ORDERED: ACETAMINOPHEN TAB 325 MG TAB PO PRN (01:10)
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
[2021-01-22] MEDS: SODIUM CHLORIDE 0.9% 1,000 ML IV SCH (06:30)
[2021-01-22 06:35] LABS: Glucose,Whole Blood 160 mg/dL (75-99)
[2021-01-22] MEDS: INSULIN ASPART (NovoLOG) 100 UNIT/ML VIAL SQ SCH ×4 (07:50→20:34)
[2021-01-22 08:58] LABS: HCT 31.4 % (37.2-46.3); HGB 10.1 g/dL (12.0-15.0); MCH 29.5 pg (27.0-32.0); MCHC 32.2 g/dL (32.0-37.0); MCV 91.8 fL (80.0-97.0); Mean Platelet Volume 9.6 fL (9.5-12.2); Platelet Count 202 X 10*3/uL (140-440); RBC 3.42 X 10*6/uL (4.10-5.20); RDW 14.5 % (11.5-14.5); WBC 2.43 X 10*3/uL (4.50-10.00)
[2021-01-22] MEDS ORDERED: metFORMIN 500 MG TAB PO SCH (09:00)
[2021-01-22 09:06] LABS: African American GFR (CKD) 112.9 (60.0-200.0); Calcium 9.1 mg/dL (8.7-10.3); Non-African American GFR(CKD) 97.4 (60.0-200.0); Potassium 3.5 mmol/L (3.5-5.5)
[2021-01-22] MEDS: HEPARIN SODIUM,PORCINE 5,000 UNIT/ML 1 ML VIAL SQ SCH ×2 (12:00→20:33)
[2021-01-22] MEDS: PIPERACILLIN-TAZOBACTAM 3.375 GM in SODIUM CHLORIDE 0.9% 100 ML IVPB SCH ×2 (12:00→20:33)
[2021-01-22 12:22] LABS: Glucose,Whole Blood 180 mg/dL (75-99)
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
[2021-01-22 12:56] LABS: Amylase <30 U/L (30-110); Lipase 15 U/L (23-300)
--- NOTE | 2021-01-22 13:16 | P.PN ---
Subjective Progress Note Date: 01/22/21 Patient was seen and evaluated by me in the ER today. Patient is awake and alert. She denies any abdominal pain. She was having low-grade fever last night but no documented fever this morning. Objective - Vital Signs Vital signs: Vital Signs Temp 99.1 F 01/22/21 12:57 Pulse 64 01/22/21 12:57 Resp 18 01/22/21 12:57 BP 90/57 01/22/21 12:57 Pulse Ox 98 01/22/21 12:57 Intake & Output 01/21/21 01/22/21 01/22/21 18:59 06:59 18:59 Weight 64.41 kg - Exam General: The patient is awake and alert, in no distress Eye: there is normal conjunctiva bilaterally. Neck: The neck is supple, there is no JVD. Cardiovascular: Normal S1-S2, no S3-S4, no murmurs. Respiratory: Lungs clear to auscultation bilaterally Gastrointestinal: Abdomen is soft, nontender. There is percutaneous biliary drain in place. Musculoskeletal: There is no pedal edema. Neurological:. Speech is normal. Skin: Skin is warm and dry - Labs CBC & Chem 7: 01/22/21 05:40 01/22/21 05:40 Labs: Abnormal Lab Results - Last 24 Hours (Table) 01/21/21 01/21/21 01/21/21 Range/Units 22:13 22:13 22:13 WBC (4.50-10.00) X 10*3/uL RBC 3.53 L (3.80-5.40) m/uL Hgb 10.8 L (11.4-16.0) gm/dL Hct 31.1 L (34.0-46.0) % Lymphocytes # 0.5 L (1.0-4.8) k/uL Sodium 136 L (137-145) mmol/L Creatinine 0.43 L (0.52-1.04) mg/dL BUN/Creatinine Ratio (12.00-20.00) Ratio Glucose 178 H (74-99) mg/dL POC Glucose (mg/dL) (75-99) mg/dL Total Protein 6.1 L (6.3-8.2) g/dL Amylase (30-110) U/L Lipase (23-300) U/L Urine Appearance Cloudy H (Clear) Urine Protein 1+ H (Negative) Urine Glucose (UA) 3+ H (Negative) Urine Blood Small H (Negative) Urine RBC 20 H (0-5) /hpf Calcium Oxalate Crystal Few H (None) /hpf Urine Mucus Moderate H (None) /hpf 01/22/21 01/22/21 01/22/21 Range/Units 05:40 05:40 05:40 WBC 2.43 L (4.50-10.00) X 10*3/uL RBC 3.42 L (3.80-5.40) m/uL Hgb 10.1 L (11.4-16.0) gm/dL Hct 31.4 L (34.0-46.0) % Lymphocytes # (1.0-4.8) k/uL Sodium (137-145) mmol/L Creatinine 0.5 L (0.52-1.04) mg/dL BUN/Creatinine Ratio 26.00 H (12.00-20.00) Ratio Glucose 149 H (74-99) mg/dL POC Glucose (mg/dL) (75-99) mg/dL Total Protein (6.3-8.2) g/dL Amylase <30 L (30-110) U/L Lipase 15 L (23-300) U/L Urine Appearance (Clear) Urine Protein (Negative) Urine Glucose (UA) (Negative) Urine Blood (Negative) Urine RBC (0-5) /hpf Calcium Oxalate Crystal (None) /hpf Urine Mucus (None) /hpf 01/22/21 01/22/21 Range/Units 06:33 12:20 WBC (4.50-10.00) X 10*3/uL RBC (3.80-5.40) m/uL Hgb (11.4-16.0) gm/dL Hct (34.0-46.0) % Lymphocytes # (1.0-4.8) k/uL Sodium (137-145) mmol/L Creatinine (0.52-1.04) mg/dL BUN/Creatinine Ratio (12.00-20.00) Ratio Glucose (74-99) mg/dL POC Glucose (mg/dL) 160 H 180 H (75-99) mg/dL Total Protein (6.3-8.2) g/dL Amylase (30-110) U/L Lipase (23-300) U/L Urine Appearance (Clear) Urine Protein (Negative) Urine Glucose (UA) (Negative) Urine Blood (Negative) Urine RBC (0-5) /hpf Calcium Oxalate Crystal (None) /hpf Urine Mucus (None) /hpf Assessment and Plan Assessment: This is a 70-year-old female with past medical history significant for history of foot surgery in 2003 with subsequent percutaneous biliary drain placement. Patient presented to the emergency room with fever of 103.4 at home. Patient given her drain exchanged every 10 weeks. Drain was recently changed. Patient also received her second dose of Moderna COVID-19 vaccine on January 10. Patient was evaluated in the ER and currently placed on observation for further management of her medical problems noted below 1. Fever, exact etiology unclear. Concerns about possible intra-abdominal infection. Computed tomography scan of the abdomen and pelvis in the ER showed findings suggestive for possible chronic bile leak. Patient was seen and evaluated by general surgery. No intervention recommended. Lipase and amylase ordered. I started the patient on IV antibiotic with Zosyn awaiting infectious disease evaluation. Blood culture sent and pending. No other source of infection. Chest x-ray unremarkable. Urinalysis and COVID-19 screen negative. 2. History of Whipple surgery in 2003 with subsequent percutaneous biliary drain placement 3. History of bowel malignancy 4. Type 2 diabetes: Hold oral agents and continue sliding scale insulin 5. DVT prophylaxis with subcu heparin
[2021-01-22 14:11] LABS: Hemoglobin A1C 7.9 % (4.0-6.0)
[2021-01-22] MEDS: polyethylene glycoL 3350 17 GM POWD.PACK PO SCH (14:26)
[2021-01-22 17:32] LABS: Glucose,Whole Blood 171 mg/dL (75-99)
[2021-01-22] MEDS: methIMAzole 5 MG TAB PO SCH (18:12)
[2021-01-22 20:29] VITALS: RESP 17
[2021-01-22 20:31] LABS: Glucose,Whole Blood 141 mg/dL (75-99)
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
[2021-01-23] MEDS: SODIUM CHLORIDE 0.9% 1,000 ML IV SCH (01:00)
[2021-01-23] MEDS: PIPERACILLIN-TAZOBACTAM 3.375 GM in SODIUM CHLORIDE 0.9% 100 ML IVPB SCH ×2 (01:00→07:34)
[2021-01-23] MEDS: HEPARIN SODIUM,PORCINE 5,000 UNIT/ML 1 ML VIAL SQ SCH ×2 (01:00→07:34)
[2021-01-23 07:08] LABS: Glucose,Whole Blood 157 mg/dL (75-99)
[2021-01-23] MEDS: methIMAzole 5 MG TAB PO SCH (07:34)
[2021-01-23] MEDS: polyethylene glycoL 3350 17 GM POWD.PACK PO SCH (07:36)
[2021-01-23 07:39] VITALS: BP 113/47; PULSE 71; TEMP 98.1
[2021-01-23] MEDS: INSULIN ASPART (NovoLOG) 100 UNIT/ML VIAL SQ SCH (09:28)
--- NOTE | 2021-01-23 11:31 | P.DS ---
Providers Date of admission: 01/22/21 01:11 Expected date of discharge: 01/23/21 Attending physician: Osman Gurrola MD Consults: 01/22/21 01:10 Consult Physician Routine Consulting Provider: Ata Levy Consult Reason/Comments: Fever, unknown source Do you want consulting provider notified?: Yes 01/22/21 02:24 Consult Physician Routine Consulting Provider: Alayna Mann Consult Reason/Comments: bile leak Do you want consulting provider notified?: Yes Primary care physician: Brenda Bai, DO Hospital Course: This is a 70-year-old female with past medical history significant for history of foot surgery in 2003 with subsequent percutaneous biliary drain placement. Patient presented to the emergency room with reported fever of 103.4 at home. Patient said her drain exchanged every 10 weeks. Drain was recently changed. Patient also received her second dose of Moderna COVID-19 vaccine on January 10. Patient was evaluated in the ER and placed on observation for further management of her medical problems noted below 1. Fever, exact etiology unclear. Here at the hospital patient had one low- grade fever of 100.6. Concerns about possible intra-abdominal infection. Computed tomography scan of the abdomen and pelvis in the ER showed findings suggestive for possible chronic bile leak. Patient was seen and evaluated by general surgery. No intervention recommended. Lipase and amylase within acceptable range. I started the patient on IV antibiotic with Zosyn. Blood culture negative. No other source of infection. Chest x-ray unremarkable. Urinalysis and COVID-19 screen negative. 2. History of Whipple surgery in 2003 with subsequent percutaneous biliary drain placement 3. History of bowel malignancy 4. Type 2 diabetes Patient's overall condition improved throughout her observation stay. She did not have any documented fever. No abdominal pain. She would be discharged home in a stable condition. She will finish empiric antibiotic coverage with Augmentin for 5 days. She was advised to follow-up with her doctors at [facility] within the next 3 days. No need or indication to transfer the patient to [facility] at this time. She is stable and will be discharged in a stable condition Patient Condition at Discharge: Fair Plan - Discharge Summary Discharge Rx Participant: No New Discharge Prescriptions: New Amoxicillin/Potassium Clav [Augmentin 875-125 Tablet] 1 tab PO Q12HR 5 Days #10 tab Continue Multivit-Min/Iron/Folic/Lutein [Centrum Silver Women Tablet] 1 tab PO DAILY methIMAzole [Tapazole] 2.5 mg PO DAILY Ascorbic Acid [Vitamin C] 500 mg PO DAILY [place]-3 Fatty Acids/Fish Oil [Fish Oil 1,000 mg Softgel] 1 cap PO DAILY metFORMIN HCL 500 mg PO DAILY Aspirin/Sod Bicarb/Citric Acid [Wendi-Arnold Original Tab Eff] 1 tab PO BID PRN PRN Reason: Pain Or Fever > 100.5 Discharge Medication List Ascorbic Acid [Vitamin C] 500 mg PO DAILY 05/12/20 [History] Multivit-Min/Iron/Folic/Lutein [Centrum Silver Women Tablet] 1 tab PO DAILY 05/12/20 [History] [place]-3 Fatty Acids/Fish Oil [Fish Oil 1,000 mg Softgel] 1 cap PO DAILY 05/12/20 [History] methIMAzole [Tapazole] 2.5 mg PO DAILY 05/12/20 [History] Aspirin/Sod Bicarb/Citric Acid [Wendi-Arnold Original Tab Eff] 1 tab PO BID PRN 01/21/21 [History] metFORMIN HCL 500 mg PO DAILY 01/21/21 [History] Amoxicillin/Potassium Clav [Augmentin 875-125 Tablet] 1 tab PO Q12HR 5 Days #10 tab 01/23/21 [Rx] Follow up Appointment(s)/Referral(s): Brenda Bai DO [Primary Care Provider] - 1-2 days Discharge Disposition: HOME SELF-CARE
== END 2021-01-23 12:07 | disposition home or self-care (01) ==
LOC: EC 21:46 → 6NMEDSUR 01-22 01:11
PROVIDERS: ADMIT Internal Medicine; ATTEND Internal Medicine
DX: R50.9 Fever, unspecified (principal); Z96.89 Presence of other specified functional implants; K90.81 Whipple's disease; D72.819 Decreased white blood cell count, unspecified; J98.11 Atelectasis; E11.9 Type 2 diabetes mellitus without complications; K43.9 Ventral hernia without obstruction or gangrene; K76.0 Fatty (change of) liver, not elsewhere classified; E03.9 Hypothyroidism, unspecified; J45.909 Unspecified asthma, uncomplicated; H91.90 Unspecified hearing loss, unspecified ear; Z79.4 Long term (current) use of insulin; Z79.82 Long term (current) use of aspirin; Z88.1 Allergy status to other antibiotic agents; Z88.5 Allergy status to narcotic agent; Z88.9 Allergy status to unspecified drugs, medicaments and biological substances; Z20.822 Contact with and (suspected) exposure to COVID-19; Z90.411 Acquired partial absence of pancreas; Z90.710 Acquired absence of both cervix and uterus; Z87.891 Personal history of nicotine dependence; Z87.828 Personal history of other (healed) physical injury and trauma; Z85.038 Personal history of other malignant neoplasm of large intestine; Z80.7 Family history of other malignant neoplasms of lymphoid, hematopoietic and related tissues; Z80.0 Family history of malignant neoplasm of digestive organs; Z86.14 Personal history of Methicillin resistant Staphylococcus aureus infection; Z86.19 Personal history of other infectious and parasitic diseases; Z87.440 Personal history of urinary (tract) infections; E07.9 Disorder of thyroid, unspecified; Z79.899 Other long term (current) drug therapy
CPT/HCPCS: 96366 ×2; 96372 ×2; 96365; 99285; 36415; 93005; 80053; 80048; 85652; 82150; 83605; 83690; 84484; 85025; 85027; 85610; 85730; 86140; 81001; 87040; 83036; 87635; 71046; 74177; G0378 ×2; J2543 ×2; J1644 ×2; Q9967

== ENCOUNTER → 2021-03-13 | Outpatient (CLI) | payer MEDICARE, BC | END | disposition home or self-care (01) | LOC: LABWHC1 14:38 | PROVIDERS: ATTEND Internal Medicine Endocrinology, Diabetes & Metabolism | DX: E05.20 Thyrotoxicosis with toxic multinodular goiter without thyrotoxic crisis or storm (principal); M85.80 Other specified disorders of bone density and structure, unspecified site | CPT/HCPCS: 36415; 84439; 84443 ==

== ENCOUNTER → 2021-03-18 | Outpatient (CLI) | payer MEDICARE, BC ==
--- NOTE | 2021-03-19 07:27 | PE ---
EXAMINATION TYPE: PET CT fusion skull to thigh DATE OF EXAM: 03/18/2021 COMPARISON: CT abdomen and pelvis January 21, 2021 and older studies. 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 TECHNIQUE: Following the intravenous administration of 10.31 mCi of F-18 FDG, whole body images are performed from the skull base to the midthigh. Images are reviewed on the computer in the coronal, a xial, and sagittal planes. Reconstructed rotating images are created on independent workstation and reviewed on the computer. A localization and attenuation correction CT is performed in conjunction with the PET scan. The blood glucose level equals 123. SCAN: Initial Scan FINDINGS: SKULL BASE AND NECK: No areas of abnormal hypermetabolic uptake. CHEST, MEDIASTINUM, AND HILAR REGION: No areas of abnormal hypermetabolic uptake. ABDOMEN AND PELVIS: Redemonstration of external and internal biliary drainage catheter with tortuous course and central pneumobilia. No suspicious hypermetabolic uptake along the focal persistent right- sided intrahepatic biliary dilatation near course of the percutaneous catheter. [place] area near p ancreatic head and portion of the biliary drainage catheter redemonstrated without air-fluid level on current study. No suspicious hypermetabolic uptake at this level. Proximal body at site of abrupt pa ncreatic duct cutoff on recent CT January 22, 2021 shows mild hypermetabolic uptake with maximum SUV le ss than 2.5 near fusion axial image 135. No obvious corresponding distinct mass on noncontrast CT but suspected measuring roughly 4.[address] correlate axial image [address] Surgical clip in the region inferior to the pancreatic head is redemonstrated. No suspicious hypermet abolic uptake noted at this level. No extrahepatic biliary dilatation is present. Nonspecific diffuse bowel uptake with surgical sutures in the pelvis sigmoid rectal colon level near axial image 200. Normal excretion. No areas of suspicious hypermetabolic uptake identified. OSSEOUS STRUCTURES: No areas of abnormal hypermetabolic uptake. OTHER CT: Scattered thyroid nodules noted. Uterus surgically absent. IMPRESSION: Primary pancreatic body neoplasm not well visualized on PET/CT. No areas of suspicious hy permetabolic uptake to suggest metastatic malignancy.
== END | disposition home or self-care (01) ==
LOC: RADPETMAIN 07:53
PROVIDERS: ATTEND Internal Medicine
DX: C25.9 Malignant neoplasm of pancreas, unspecified (principal); C18.7 Malignant neoplasm of sigmoid colon
CPT/HCPCS: 78815; A9552

== ENCOUNTER → 2021-04-12 | Outpatient (CLI) | payer MEDICARE, BC | END | disposition home or self-care (01) | LOC: LABWHC1 14:16 | PROVIDERS: ATTEND Internal Medicine Endocrinology, Diabetes & Metabolism | DX: E05.20 Thyrotoxicosis with toxic multinodular goiter without thyrotoxic crisis or storm (principal); M85.80 Other specified disorders of bone density and structure, unspecified site | CPT/HCPCS: 36415; 84439; 84443 ==

== ENCOUNTER → 2021-05-15 | Outpatient (CLI) | payer MEDICARE, BC ==
[2021-05-15 14:54] LABS: HCT 29.3 % (37.2-46.3); HGB 9.1 g/dL (12.0-15.0); MCH 29.7 pg (27.0-32.0); MCHC 31.1 g/dL (32.0-37.0); MCV 95.8 fL (80.0-97.0); Mean Platelet Volume 9.6 fL (9.5-12.2); Platelet Count 222 X 10*3/uL (140-440); RBC 3.06 X 10*6/uL (4.10-5.20); RDW 16.8 % (11.5-14.5); WBC 2.19 X 10*3/uL (4.50-10.00)
[2021-05-15 15:24] LABS: Basophils # (A) 0.01 X 10*3/uL (0.00-0.10); Basophils % (A) 0.5 %; Eosinophils # (A) 0.02 X 10*3/uL (0.04-0.35); Eosinophils % (A) 0.9 %; Lymphocytes % (A) 36.5 %; Monocytes # (A) 0.29 X 10*3/uL (0.20-1.00); Monocytes % (A) 13.2 %; Neutrophils # (A) 1.06 X 10*3/uL (1.80-7.70); Neutrophils % (A) 48.4 %
[2021-05-15 16:06] LABS: African American GFR (CKD) 121.5 (60.0-200.0); Albumin 3.9 g/dL (3.80-4.90); Albumin/Globulin Ratio 1.95 (1.60-3.17); Anion Gap 7.3 mmol/L (4.00-12.00); Calcium 8.5 mg/dL (8.7-10.3); Carbon Dioxide 23.7 mmol/L (21.6-31.8); Non-African American GFR(CKD) 104.8 (60.0-200.0); Potassium 4.4 mmol/L (3.5-5.5); Total Bilirubin 0.1 mg/dL (0.3-1.2); Total Protein 5.9 g/dL (6.2-8.2)
== END | disposition home or self-care (01) ==
LOC: LABWHC1 11:13
PROVIDERS: ATTEND Internal Medicine
DX: C18.7 Malignant neoplasm of sigmoid colon (principal); C25.9 Malignant neoplasm of pancreas, unspecified; D64.9 Anemia, unspecified
CPT/HCPCS: 36415; 80053; 85025; 86301

== ENCOUNTER → 2021-05-22 | Outpatient (CLI) | payer MEDICARE, BC ==
[2021-05-22 15:07] LABS: Basophils # (A) 0.04 X 10*3/uL (0.00-0.10); Basophils % (A) 0.9 %; Eosinophils # (A) 0.08 X 10*3/uL (0.04-0.35); Eosinophils % (A) 1.9 %; HCT 30.1 % (37.2-46.3); HGB 9.3 g/dL (12.0-15.0); Lymphocytes # (A) 0.97 X 10*3/uL (0.90-5.00); MCH 29.7 pg (27.0-32.0); MCHC 30.9 g/dL (32.0-37.0); MCV 96.2 fL (80.0-97.0); Mean Platelet Volume 9.7 fL (9.5-12.2); Monocytes # (A) 0.09 X 10*3/uL (0.20-1.00); Monocytes % (A) 2.1 %; Neutrophils # (A) 3.03 X 10*3/uL (1.80-7.70); Neutrophils % (A) 71.9 %; Platelet Count 387 X 10*3/uL (140-440); RBC 3.13 X 10*6/uL (4.10-5.20); RDW 17.2 % (11.5-14.5); WBC 4.22 X 10*3/uL (4.50-10.00)
[2021-05-22 15:19] LABS: African American GFR (CKD) 112.9 (60.0-200.0); Albumin 4.1 g/dL (3.80-4.90); Albumin/Globulin Ratio 1.86 (1.60-3.17); Anion Gap 7.8 mmol/L (4.00-12.00); Calcium 9.3 mg/dL (8.7-10.3); Carbon Dioxide 28.2 mmol/L (21.6-31.8); Globulin 2.2 g/dL (1.6-3.3); Non-African American GFR(CKD) 97.4 (60.0-200.0); Potassium 4.2 mmol/L (3.5-5.5); Total Bilirubin 0.4 mg/dL (0.3-1.2); Total Protein 6.3 g/dL (6.2-8.2)
== END | disposition home or self-care (01) ==
LOC: LABWHC1 11:00
PROVIDERS: ATTEND Internal Medicine
DX: C18.7 Malignant neoplasm of sigmoid colon (principal); C25.9 Malignant neoplasm of pancreas, unspecified; D64.9 Anemia, unspecified
CPT/HCPCS: 36415; 80053; 85025; 86301

== ENCOUNTER → 2021-05-29 | Outpatient (CLI) | payer MEDICARE, BC ==
[2021-05-29 23:51] LABS: HGB 9.2 g/dL (12.0-15.0); MCH 30.6 pg (27.0-32.0); MCHC 31.7 g/dL (32.0-37.0); MCV 96.3 fL (80.0-97.0); Mean Platelet Volume 10.2 fL (9.5-12.2); Platelet Count 215 X 10*3/uL (140-440); RBC 3.01 X 10*6/uL (4.10-5.20); WBC 3.47 X 10*3/uL (4.50-10.00)
[2021-05-30 01:36] LABS: Basophils # (A) 0.02 X 10*3/uL (0.00-0.10); Basophils % (A) 0.6 %; Eosinophils # (A) 0.16 X 10*3/uL (0.04-0.35); Eosinophils % (A) 4.6 %; Lymphocytes # (A) 1.03 X 10*3/uL (0.90-5.00); Lymphocytes % (A) 29.7 %; Monocytes # (A) 0.06 X 10*3/uL (0.20-1.00); Monocytes % (A) 1.7 %; Neutrophils # (A) 2.19 X 10*3/uL (1.80-7.70); Neutrophils % (A) 63.1 %
[2021-05-30 04:33] LABS: African American GFR (CKD) 106.3 (60.0-200.0); Albumin 4.1 g/dL (3.80-4.90); Albumin/Globulin Ratio 1.78 (1.60-3.17); Anion Gap 8.7 mmol/L (4.00-12.00); BUN/Creat Ratio 18.33 Ratio (12.00-20.00); Calcium 9.2 mg/dL (8.7-10.3); Carbon Dioxide 27.3 mmol/L (21.6-31.8); Globulin 2.3 g/dL (1.6-3.3); Non-African American GFR(CKD) 91.7 (60.0-200.0); Potassium 4.8 mmol/L (3.5-5.5); Total Bilirubin 0.5 mg/dL (0.3-1.2); Total Protein 6.4 g/dL (6.2-8.2)
== END | disposition home or self-care (01) ==
LOC: LABWHC1 15:06
PROVIDERS: ATTEND Nurse Practitioner
DX: C18.7 Malignant neoplasm of sigmoid colon (principal); C25.9 Malignant neoplasm of pancreas, unspecified; D64.9 Anemia, unspecified
CPT/HCPCS: 36415; 80053; 85025

== ENCOUNTER → 2021-06-13 | Outpatient (CLI) | payer MEDICARE, BC ==
[2021-06-14 03:39] LABS: Basophils # (A) 0.03 X 10*3/uL (0.00-0.10); Eosinophils # (A) 0.04 X 10*3/uL (0.04-0.35); Eosinophils % (A) 1.3 %; HCT 28.4 % (37.2-46.3); HGB 8.8 g/dL (12.0-15.0); Lymphocytes # (A) 0.86 X 10*3/uL (0.90-5.00); Lymphocytes % (A) 28.8 %; MCH 31.2 pg (27.0-32.0); MCV 100.7 fL (80.0-97.0); Mean Platelet Volume 9.5 fL (9.5-12.2); Monocytes # (A) 0.37 X 10*3/uL (0.20-1.00); Monocytes % (A) 12.4 %; Neutrophils # (A) 1.68 X 10*3/uL (1.80-7.70); Neutrophils % (A) 56.2 %; Platelet Count 313 X 10*3/uL (140-440); RBC 2.82 X 10*6/uL (4.10-5.20); RDW 18.1 % (11.5-14.5); WBC 2.99 X 10*3/uL (4.50-10.00)
[2021-06-14 06:04] LABS: African American GFR (CKD) 106.3 (60.0-200.0); Albumin 3.7 g/dL (3.80-4.90); Albumin/Globulin Ratio 1.85 (1.60-3.17); Anion Gap 6.9 mmol/L (4.00-12.00); Calcium 8.5 mg/dL (8.7-10.3); Carbon Dioxide 28.1 mmol/L (21.6-31.8); Non-African American GFR(CKD) 91.7 (60.0-200.0); Potassium 4.3 mmol/L (3.5-5.5); Total Bilirubin 0.3 mg/dL (0.2-1.2); Total Protein 5.7 g/dL (6.2-8.2)
== END | disposition home or self-care (01) ==
LOC: LABWHC1 15:54
PROVIDERS: ATTEND Internal Medicine
DX: C25.9 Malignant neoplasm of pancreas, unspecified (principal)
CPT/HCPCS: 36415; 80053; 85025; 86301

== ENCOUNTER → 2021-06-19 | Outpatient (CLI) | payer MEDICARE, BC ==
[2021-06-19 22:41] LABS: Basophils # (A) 0.05 X 10*3/uL (0.00-0.10); Basophils % (A) 1.5 %; Eosinophils # (A) 0.07 X 10*3/uL (0.04-0.35); HCT 28.7 % (37.2-46.3); HGB 8.8 g/dL (12.0-15.0); Lymphocytes # (A) 0.94 X 10*3/uL (0.90-5.00); Lymphocytes % (A) 27.5 %; MCHC 30.7 g/dL (32.0-37.0); MCV 101.1 fL (80.0-97.0); Mean Platelet Volume 9.9 fL (9.5-12.2); Monocytes # (A) 0.11 X 10*3/uL (0.20-1.00); Monocytes % (A) 3.2 %; Neutrophils # (A) 2.24 X 10*3/uL (1.80-7.70); Neutrophils % (A) 65.5 %; Platelet Count 355 X 10*3/uL (140-440); RBC 2.84 X 10*6/uL (4.10-5.20); RDW 17.4 % (11.5-14.5); WBC 3.42 X 10*3/uL (4.50-10.00)
[2021-06-20 04:17] LABS: African American GFR (CKD) 106.3 (60.0-200.0); Albumin 3.8 g/dL (3.80-4.90); Albumin/Globulin Ratio 1.81 (1.60-3.17); Anion Gap 6.8 mmol/L (4.00-12.00); BUN/Creat Ratio 18.33 Ratio (12.00-20.00); Calcium 8.6 mg/dL (8.7-10.3); Carbon Dioxide 24.2 mmol/L (21.6-31.8); Globulin 2.1 g/dL (1.6-3.3); Non-African American GFR(CKD) 91.7 (60.0-200.0); Potassium 4.3 mmol/L (3.5-5.5); Total Bilirubin 0.3 mg/dL (0.2-1.2); Total Protein 5.9 g/dL (6.2-8.2)
== END | disposition home or self-care (01) ==
LOC: LABWHC1 15:31
PROVIDERS: ATTEND Internal Medicine
DX: C18.7 Malignant neoplasm of sigmoid colon (principal); C25.9 Malignant neoplasm of pancreas, unspecified; D64.9 Anemia, unspecified
CPT/HCPCS: 36415; 80053; 85025; 86301

== ENCOUNTER → 2021-06-27 | Outpatient (CLI) | payer MEDICARE, BC ==
[2021-06-27 19:29] LABS: Basophils # (A) 0.02 X 10*3/uL (0.00-0.10); Basophils % (A) 0.7 %; Eosinophils # (A) 0.05 X 10*3/uL (0.04-0.35); Eosinophils % (A) 1.7 %; HCT 27.9 % (37.2-46.3); HGB 8.7 g/dL (12.0-15.0); Lymphocytes # (A) 0.82 X 10*3/uL (0.90-5.00); Lymphocytes % (A) 28.2 %; MCH 31.2 pg (27.0-32.0); MCHC 31.2 g/dL (32.0-37.0); Mean Platelet Volume 10.4 fL (9.5-12.2); Monocytes # (A) 0.12 X 10*3/uL (0.20-1.00); Monocytes % (A) 4.1 %; Neutrophils # (A) 1.88 X 10*3/uL (1.80-7.70); Neutrophils % (A) 64.6 %; Platelet Count 178 X 10*3/uL (140-440); RBC 2.79 X 10*6/uL (4.10-5.20); RDW 17.4 % (11.5-14.5); WBC 2.91 X 10*3/uL (4.50-10.00)
[2021-06-28 02:52] LABS: African American GFR (CKD) 106.3 (60.0-200.0); Albumin 4.1 g/dL (3.80-4.90); Albumin/Globulin Ratio 2.28 (1.60-3.17); Anion Gap 10.3 mmol/L (4.00-12.00); BUN/Creat Ratio 23.33 Ratio (12.00-20.00); Calcium 9.5 mg/dL (8.7-10.3); Carbon Dioxide 26.7 mmol/L (21.6-31.8); Globulin 1.8 g/dL (1.6-3.3); Non-African American GFR(CKD) 91.7 (60.0-200.0); Potassium 4.4 mmol/L (3.5-5.5); Total Bilirubin 0.3 mg/dL (0.3-1.2); Total Protein 5.9 g/dL (6.2-8.2)
== END | disposition home or self-care (01) ==
LOC: LABWHC1 12:22
PROVIDERS: ATTEND Surgery
DX: C25.9 Malignant neoplasm of pancreas, unspecified (principal); C18.7 Malignant neoplasm of sigmoid colon; D64.9 Anemia, unspecified
CPT/HCPCS: 36415; 80053; 85025

== ENCOUNTER → 2021-07-07 | Outpatient (CLI) | payer MEDICARE, BC ==
[2021-07-07 14:49] LABS: Anisocytosis Slight; Basophils % (A) 0 %; Eosinophils % (A) 1 %; HCT 29.1 % (34.0-46.0); HGB 9.6 gm/dL (11.4-16.0); Lymphocytes # (A) 0.9 k/uL (1.0-4.8); Lymphocytes % (A) 27 %; MCV 99.8 fL (80.0-100.0); Macrocytosis Slight; Mean Platelet Volume 7.2; Monocytes # (A) 0.2 k/uL (0-1.0); Monocytes % (A) 7 %; Neutrophils % (A) 63 %; Platelet Count 205 k/uL (150-450); RBC 2.92 m/uL (3.80-5.40); RDW 17.7 % (11.5-15.5); WBC 3.1 k/uL (3.8-10.6)
[2021-07-07 14:59] LABS: ALT 49 U/L (4-34); AST 44 U/L (14-36); African American GFR (CKD) >90 (>60 ml/min/1.73 sqM); Albumin 3.8 g/dL (3.5-5.0); Alkaline Phosphatase 110 U/L (38-126); Anion Gap 7 mmol/L; Blood Urea Nitrogen 16 mg/dL (7-17); Calcium 9.4 mg/dL (8.4-10.2); Carbon Dioxide 30 mmol/L (22-30); Chloride 104 mmol/L (98-107); Glucose 89 mg/dL (74-99); Non-African American GFR(CKD) >90 (>60 ml/min/1.73 sqM); Potassium 4.6 mmol/L (3.5-5.1); Sodium 141 mmol/L (137-145); Total Bilirubin 0.4 mg/dL (0.2-1.3); Total Protein 6.3 g/dL (6.3-8.2)
--- NOTE | 2021-07-10 11:01 | CT ---
EXAMINATION TYPE: CT abdomen pelvis w con DATE OF EXAM: 07/07/2021 COMPARISON: PET CT 03/18/[address] 01/21/2021, 11/14/2020 HISTORY: 70-year-old female C25.9, malignant neoplasm pancreas, pancreatic mass TECHNIQUE: Contiguous axial scanning of the abdomen and pelvis following administration of 100 ml Iso jose luis 300 IV contrast. Delayed images through the kidneys and coronal/sagittal reconstructions perform ed. CT DLP: 552.8 mGycm Automated exposure control for dose reduction was used. FINDINGS: Heart normal size without pericardial effusion. Strandy atelectasis especially left lower lobe withou t pleural effusion. Stable prominent 6 mm right anterior epiphrenic lymph nodes. Redemonstrated external/internal right-sided biliary drain. Redemonstrated pneumobilia within the lef t hepatic lobe and associated intrahepatic biliary ductal dilatation. Heterogeneous enhancement anterior left liver lobe seems to largely normalize on the portal venous ph ase imaging with only minimal focal area of heterogeneity, for example, series 5 axial image 25 that appears similar to 01/14/2021 but may be increased compared to 11/14/2020. Focal hypodense area at the mid pancreas measuring 3.2 x 1.8 cm, series 5 image 46 versus approximate ly 3.5 x 2.0 cm on 01/22/2021 and 2.6 x 1.7 cm on 11/14/2020. The upstream main pancreatic duct is bord gema prominent at 3 mm. Portal venous system is patent. 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 A 7 mm right abdominal lymph node, axial image 120 appears new. Scattered prominent mesenteric lymph nodes measuring up to 9 mm otherwise largely appear unchanged. There is some interval development of fat stranding in the intra-abdominal fat along with mild genera lized anasarca change. No dilated small bowel, free fluid, or free air. Moderate to large stool burden. Staple line from previous resection and re-anastomosis at the rectosi gmoid junction. Bladder urine distended. Left inguinal lymph nodes are slightly increased in size but remain nonenlar ged measuring up to 6 mm short axis. Again, mild generalized anasarca change. Mild presacral edema. Bones: Severe degenerative changes left hip and moderate degenerative change right hip. Hypertrophic facet arthropathy lower lumbar spine. Mild degenerative disc disease lower thoracic spine. IMPRESSION: 1. NEW MILD GENERALIZED ANASARCA CHANGE. CORRELATE FOR THIRD SPACING OR FLUID OVERLOAD STATE. 2. REDEMONSTRATED RIGHT-SIDED EXTERNAL/INTERNAL BILIARY DRAIN. SIMILAR PNEUMOBILIA AND MILD INTRAHEPA TIC BILIARY DUCTAL DILATATION LEFT LIVER LOBE. HOWEVER, SOME HETEROGENEOUS ENHANCEMENT IN THE LEFT LI MARIUM LOBE IS INCREASED THOUGH SEEMS TO PARTIALLY EQUILIBRATE ON THE PORTAL VENOUS PHASE IMAGES. PERFUS ION VARIATION IS SUSPECTED. ATTENTION ON FOLLOW-UP TO EXCLUDE EARLY DEVELOPING LIVER LESIONS. 3. FOCAL HYPODENSITY MID PANCREAS STABLE TO SLIGHTLY SMALLER (3.2 X 1.8 CM VERSUS 3.5 X 2.0 CM ON 12/27 AND 2.6 X 1.7 CM ON 11/14/2020). 4. SCATTERED PROMINENT MESENTERIC LYMPH NODES MEASURING UP TO 9 MM APPEAR LARGELY UNCHANGED. A 7 MM R IGHT ABDOMINAL LYMPH NODE (AXIAL IMAGE 120) IS NONSPECIFIC, BORDERLINE IN SIZE, AND APPEARS NEW. ATTE NTION ON FOLLOW-UP. 5. MODERATE TO LARGE STOOL BURDEN. PREVIOUS RESECTION AND REANASTOMOSIS REDEMONSTRATED AT THE RECTOSI GMOID JUNCTION.
== END | disposition home or self-care (01) ==
LOC: RADCTMAIN 13:51
PROVIDERS: ATTEND Internal Medicine
DX: C25.9 Malignant neoplasm of pancreas, unspecified (principal); R60.1 Generalized edema; K83.8 Other specified diseases of biliary tract
CPT/HCPCS: 80053; 85025; 74177; 36415; Q9967

== ENCOUNTER → 2021-07-10 | Outpatient (CLI) | payer MEDICARE, BC ==
[2021-07-10 20:47] LABS: Basophils # (A) 0.02 X 10*3/uL (0.00-0.10); Basophils % (A) 0.5 %; Eosinophils # (A) 0.03 X 10*3/uL (0.04-0.35); Eosinophils % (A) 0.8 %; HCT 29.8 % (37.2-46.3); HGB 9.2 g/dL (12.0-15.0); Lymphocytes % (A) 21.4 %; MCH 31.6 pg (27.0-32.0); MCHC 30.9 g/dL (32.0-37.0); MCV 102.4 fL (80.0-97.0); Mean Platelet Volume 9.6 fL (9.5-12.2); Monocytes # (A) 0.47 X 10*3/uL (0.20-1.00); Monocytes % (A) 12.6 %; Neutrophils # (A) 2.39 X 10*3/uL (1.80-7.70); Neutrophils % (A) 64.2 %; Platelet Count 261 X 10*3/uL (140-440); RBC 2.91 X 10*6/uL (4.10-5.20); RDW 18.5 % (11.5-14.5); WBC 3.73 X 10*3/uL (4.50-10.00)
[2021-07-11 02:03] LABS: African American GFR (CKD) 106.3 (60.0-200.0); Albumin 3.8 g/dL (3.80-4.90); Albumin/Globulin Ratio 1.73 (1.60-3.17); Anion Gap 10.1 mmol/L (4.00-12.00); Calcium 8.6 mg/dL (8.7-10.3); Carbon Dioxide 23.9 mmol/L (21.6-31.8); Globulin 2.2 g/dL (1.6-3.3); Non-African American GFR(CKD) 91.7 (60.0-200.0); Potassium 4.7 mmol/L (3.5-5.5); Total Bilirubin 0.3 mg/dL (0.2-1.2)
== END | disposition home or self-care (01) ==
LOC: LABWHC1 13:36
PROVIDERS: ATTEND Internal Medicine
DX: C25.9 Malignant neoplasm of pancreas, unspecified (principal)
CPT/HCPCS: 36415; 80053; 85025; 86301

== ENCOUNTER → 2021-07-17 | Outpatient (CLI) | payer MEDICARE, BC ==
[2021-07-18 01:27] LABS: Basophils # (A) 0.02 X 10*3/uL (0.00-0.10); Basophils % (A) 0.8 %; Eosinophils % (A) 3.9 %; HCT 26.8 % (37.2-46.3); HGB 8.2 g/dL (12.0-15.0); Lymphocytes % (A) 30.9 %; MCH 30.8 pg (27.0-32.0); MCHC 30.6 g/dL (32.0-37.0); MCV 100.8 fL (80.0-97.0); Mean Platelet Volume 10.2 fL (9.5-12.2); Monocytes % (A) 3.9 %; Neutrophils # (A) 1.57 X 10*3/uL (1.80-7.70); Neutrophils % (A) 60.5 %; Platelet Count 332 X 10*3/uL (140-440); RBC 2.66 X 10*6/uL (4.10-5.20); RDW 17.2 % (11.5-14.5); WBC 2.59 X 10*3/uL (4.50-10.00)
[2021-07-18 06:45] LABS: African American GFR (CKD) 112.9 (60.0-200.0); Albumin 3.6 g/dL (3.80-4.90); Albumin/Globulin Ratio 1.89 (1.60-3.17); Anion Gap 11.6 mmol/L (4.00-12.00); Calcium 8.4 mg/dL (8.7-10.3); Carbon Dioxide 23.4 mmol/L (21.6-31.8); Globulin 1.9 g/dL (1.6-3.3); Non-African American GFR(CKD) 97.4 (60.0-200.0); Potassium 4.7 mmol/L (3.5-5.5); Total Bilirubin 0.3 mg/dL (0.2-1.2); Total Protein 5.5 g/dL (6.2-8.2)
== END | disposition home or self-care (01) ==
LOC: LABWHC1 14:07
PROVIDERS: ATTEND Surgery
DX: C25.9 Malignant neoplasm of pancreas, unspecified (principal)
CPT/HCPCS: 36415; 80053; 85025; 86301

== ENCOUNTER → 2021-07-24 | Outpatient (CLI) | payer MEDICARE, BC ==
[2021-07-25 01:11] LABS: MCH 32.8 pg (27.0-32.0); MCHC 32.1 g/dL (32.0-37.0); MCV 102.2 fL (80.0-97.0); Mean Platelet Volume 10.6 fL (9.5-12.2); Platelet Count 219 X 10*3/uL (140-440); RBC 2.74 X 10*6/uL (4.10-5.20); RDW 16.8 % (11.5-14.5); WBC 3.49 X 10*3/uL (4.50-10.00)
[2021-07-25 01:48] LABS: Basophils # (A) 0.03 X 10*3/uL (0.00-0.10); Basophils % (A) 0.9 %; Eosinophils % (A) 2.9 %; Lymphocytes # (A) 0.71 X 10*3/uL (0.90-5.00); Lymphocytes % (A) 20.3 %; Macrocytosis (M) 2+; Monocytes # (A) 0.07 X 10*3/uL (0.20-1.00); Neutrophils # (A) 2.56 X 10*3/uL (1.80-7.70); Neutrophils % (A) 73.3 %
[2021-07-25 05:52] LABS: African American GFR (CKD) 106.3 (60.0-200.0); Albumin 4.1 g/dL (3.80-4.90); Albumin/Globulin Ratio 1.95 (1.60-3.17); Anion Gap 11.5 mmol/L (4.00-12.00); BUN/Creat Ratio 23.33 Ratio (12.00-20.00); Calcium 8.9 mg/dL (8.7-10.3); Carbon Dioxide 22.5 mmol/L (21.6-31.8); Globulin 2.1 g/dL (1.6-3.3); Non-African American GFR(CKD) 91.7 (60.0-200.0); Potassium 4.4 mmol/L (3.5-5.5); Total Bilirubin 0.4 mg/dL (0.2-1.2); Total Protein 6.2 g/dL (6.2-8.2)
== END | disposition home or self-care (01) ==
LOC: LABWHC1 15:04
PROVIDERS: ATTEND Nurse Practitioner Adult Health
DX: C18.7 Malignant neoplasm of sigmoid colon (principal); C25.9 Malignant neoplasm of pancreas, unspecified; D64.9 Anemia, unspecified
CPT/HCPCS: 36415; 80053; 85025

== ENCOUNTER → 2021-08-07 | Outpatient (CLI) | payer MEDICARE, BC ==
[2021-08-07 19:52] LABS: HCT 28.4 % (37.2-46.3); HGB 8.6 g/dL (12.0-15.0); MCH 31.3 pg (27.0-32.0); MCHC 30.3 g/dL (32.0-37.0); MCV 103.3 fL (80.0-97.0); Mean Platelet Volume 10.9 fL (9.5-12.2); Platelet Count 226 X 10*3/uL (140-440); RBC 2.75 X 10*6/uL (4.10-5.20); RDW 19.4 % (11.5-14.5); WBC 16.24 X 10*3/uL (4.50-10.00)
[2021-08-07 21:52] LABS: Basophils # (A) 0.07 X 10*3/uL (0.00-0.10); Basophils % (A) 0.4 %; Eosinophils # (A) 0.11 X 10*3/uL (0.04-0.35); Eosinophils % (A) 0.7 %; Lymphocytes # (A) 1.17 X 10*3/uL (0.90-5.00); Lymphocytes % (A) 7.2 %; Monocytes # (A) 1.09 X 10*3/uL (0.20-1.00); Monocytes % (A) 6.7 %; Neutrophils # (A) 13.06 X 10*3/uL (1.80-7.70); Neutrophils % (A) 80.4 %
[2021-08-08 14:00] LABS: African American GFR (CKD) 105.5 (60.0-200.0); Albumin 3.6 g/dL (3.8-4.9); Albumin/Globulin Ratio 1.75 (1.60-3.17); Anion Gap 13.1 mmol/L (4.00-12.00); BUN/Creat Ratio 15.44 Ratio (12.00-20.00); Blood Urea Nitrogen 9.5 mg/dL (9.0-27.0); Calcium 8.7 mg/dL (8.7-10.3); Carbon Dioxide 24.7 mmol/L (21.6-31.8); Globulin 2.1 g/dL (1.6-3.3); Potassium 5.1 mmol/L (3.5-5.5); Total Bilirubin 0.2 mg/dL (0.30-1.20); Total Protein 5.7 g/dL (6.2-8.2)
== END | disposition home or self-care (01) ==
LOC: LABWHC1 14:39
PROVIDERS: ATTEND Nurse Practitioner Adult Health
DX: C18.7 Malignant neoplasm of sigmoid colon (principal); C25.9 Malignant neoplasm of pancreas, unspecified; D64.9 Anemia, unspecified
CPT/HCPCS: 36415; 80053; 85025

== ENCOUNTER → 2021-08-14 | Outpatient (CLI) | payer MEDICARE, BC ==
[2021-08-14 18:54] LABS: HCT 26.9 % (37.2-46.3); HGB 8.2 g/dL (12.0-15.0); MCHC 30.5 g/dL (32.0-37.0); MCV 105.1 fL (80.0-97.0); Mean Platelet Volume 10.1 fL (9.5-12.2); Platelet Count 363 X 10*3/uL (140-440); RBC 2.56 X 10*6/uL (4.10-5.20); RDW 18.4 % (11.5-14.5); WBC 3.61 X 10*3/uL (4.50-10.00)
[2021-08-14 19:23] LABS: Basophils # (A) 0.03 X 10*3/uL (0.00-0.10); Basophils % (A) 0.8 %; Eosinophils # (A) 0.04 X 10*3/uL (0.04-0.35); Eosinophils % (A) 1.1 %; Lymphocytes # (A) 0.51 X 10*3/uL (0.90-5.00); Lymphocytes % (A) 14.1 %; Monocytes # (A) 0.16 X 10*3/uL (0.20-1.00); Monocytes % (A) 4.4 %; Neutrophils # (A) 2.85 X 10*3/uL (1.80-7.70)
[2021-08-14 21:09] LABS: African American GFR (CKD) 111.9 (60.0-200.0); Albumin 3.9 g/dL (3.8-4.9); Albumin/Globulin Ratio 1.85 (1.60-3.17); Anion Gap 10.9 mmol/L (4.00-12.00); BUN/Creat Ratio 28.27 Ratio (12.00-20.00); Blood Urea Nitrogen 14.5 mg/dL (9.0-27.0); Calcium 9.2 mg/dL (8.7-10.3); Carbon Dioxide 25.7 mmol/L (21.6-31.8); Globulin 2.1 g/dL (1.6-3.3); Non-African American GFR(CKD) 96.6 (60.0-200.0); Potassium 4.8 mmol/L (3.5-5.5); Total Bilirubin 0.3 mg/dL (0.30-1.20); Total Protein 5.9 g/dL (6.2-8.2)
== END | disposition home or self-care (01) ==
LOC: LABWHC1 14:04
PROVIDERS: ATTEND Nurse Practitioner
DX: C18.7 Malignant neoplasm of sigmoid colon (principal); D64.9 Anemia, unspecified; C25.9 Malignant neoplasm of pancreas, unspecified
CPT/HCPCS: 36415; 80053; 85025

== ENCOUNTER → 2021-08-21 | Outpatient (CLI) | payer MEDICARE, BC ==
[2021-08-21 22:39] LABS: Basophils # (A) 0.02 X 10*3/uL (0.00-0.10); Basophils % (A) 0.9 %; Eosinophils # (A) 0.06 X 10*3/uL (0.04-0.35); Eosinophils % (A) 2.8 %; HCT 25.7 % (37.2-46.3); HGB 8.2 g/dL (12.0-15.0); Lymphocytes # (A) 0.44 X 10*3/uL (0.90-5.00); Lymphocytes % (A) 20.9 %; MCH 33.1 pg (27.0-32.0); MCHC 31.9 g/dL (32.0-37.0); MCV 103.6 fL (80.0-97.0); Mean Platelet Volume 10.9 fL (9.5-12.2); Monocytes # (A) 0.07 X 10*3/uL (0.20-1.00); Monocytes % (A) 3.3 %; Neutrophils # (A) 1.51 X 10*3/uL (1.80-7.70); Neutrophils % (A) 71.6 %; Platelet Count 183 X 10*3/uL (140-440); RBC 2.48 X 10*6/uL (4.10-5.20); RDW 17.6 % (11.5-14.5); WBC 2.11 X 10*3/uL (4.50-10.00)
[2021-08-22 01:24] LABS: African American GFR (CKD) 112.9 (60.0-200.0); Albumin 3.9 g/dL (3.8-4.9); Albumin/Globulin Ratio 1.77 (1.60-3.17); Anion Gap 13.8 mmol/L (4.00-12.00); BUN/Creat Ratio 24.4 Ratio (12.00-20.00); Blood Urea Nitrogen 12.2 mg/dL (9.0-27.0); Calcium 9.1 mg/dL (8.7-10.3); Carbon Dioxide 23.2 mmol/L (21.6-31.8); Globulin 2.2 g/dL (1.6-3.3); Non-African American GFR(CKD) 97.4 (60.0-200.0); Potassium 4.6 mmol/L (3.5-5.5); Total Bilirubin 0.3 mg/dL (0.30-1.20); Total Protein 6.1 g/dL (6.2-8.2)
== END | disposition home or self-care (01) ==
LOC: LABWHC1 14:56
PROVIDERS: ATTEND Nurse Practitioner
DX: C25.9 Malignant neoplasm of pancreas, unspecified (principal); C18.7 Malignant neoplasm of sigmoid colon; D64.9 Anemia, unspecified
CPT/HCPCS: 36415; 80053; 85025

== ENCOUNTER → 2021-08-29 | Outpatient (CLI) | payer MEDICARE, BC ==
--- NOTE | 2021-08-30 14:48 | P.ARTDOP ---
Arterial Doppler LOWER EXTREMITY ARTERIAL DOPPLER: DATE OF SERVICE: 08/29/2021 Reason for study: Bilateral leg pain. Doppler waveforms: Multiphasic throughout bilaterally with good toe waveforms. Pulse volume recording: []. Pressure gradients: None. Ankle-brachial indices: Greater than 1 bilaterally. Toe brachial indices: Greater than 1 bilaterally Impression: Normal study.
== END | disposition home or self-care (01) ==
LOC: RADUSWWP 13:05
PROVIDERS: ATTEND Internal Medicine
DX: M79.604 Pain in right leg (principal); M79.605 Pain in left leg
CPT/HCPCS: 93922; 93923

== ENCOUNTER → 2021-09-04 | Outpatient (CLI) | payer MEDICARE, BC ==
[2021-09-04 20:06] LABS: HCT 26.8 % (37.2-46.3); MCHC 29.9 g/dL (32.0-37.0); MCV 107.2 fL (80.0-97.0); Mean Platelet Volume 10.7 fL (9.5-12.2); Platelet Count 248 X 10*3/uL (140-440); RDW 20.7 % (11.5-14.5); WBC 22.63 X 10*3/uL (4.50-10.00)
[2021-09-04 21:28] LABS: Basophils # (M) 0 X 10*3/uL (0.00-0.10); Eosinophils # (M) 0 X 10*3/uL (0.04-0.35); Lymphocytes # (M) 0.91 X 10*3/uL (0.90-5.00); Metamyelocytes % 1 % (0-0); Monocytes # (M) 0.45 X 10*3/uL (0.20-1.00); Myelocytes % 5 % (0-0); Neutrophils # (M) 19.91 X 10*3/uL (2.00-8.90); Neutrophils % (M) 88 %; Nucleated Red Blood Cells 1 /100 WBCS
[2021-09-04 21:51] LABS: Albumin 3.6 g/dL (3.8-4.9); Albumin/Globulin Ratio 1.89 (1.60-3.17); Anion Gap 10.9 mmol/L (4.00-12.00); BUN/Creat Ratio 16.5 Ratio (12.00-20.00); Blood Urea Nitrogen 13.2 mg/dL (9.0-27.0); Calcium 8.6 mg/dL (8.7-10.3); Carbon Dioxide 24.1 mmol/L (21.6-31.8); Globulin 1.9 g/dL (1.6-3.3); Non-African American GFR(CKD) 74.2 (60.0-200.0); Potassium 4.7 mmol/L (3.5-5.5); Total Bilirubin 0.2 mg/dL (0.30-1.20); Total Protein 5.5 g/dL (6.2-8.2)
== END | disposition home or self-care (01) ==
LOC: LABWHC1 14:53
PROVIDERS: ATTEND Nurse Practitioner
DX: C18.7 Malignant neoplasm of sigmoid colon (principal); C25.9 Malignant neoplasm of pancreas, unspecified; D64.9 Anemia, unspecified
CPT/HCPCS: 36415; 80053; 85025

== ENCOUNTER → 2021-09-08 | Outpatient (CLI) | payer MEDICARE, BC ==
--- NOTE | 2021-09-09 15:26 | US ---
EXAMINATION TYPE: US thyroid st tissue head/neck DATE OF EXAM: 09/08/2021 COMPARISON: NONE CLINICAL HISTORY: E05.41 Thyrotoxicosis. f/u exam GLAND SIZE: Right Lobe: 5.8 x 2.0 x 2.5 cm Overall Parenchyma: heterogenous Left Lobe: 4.8 x 1.8 x 2.6 cm Overall Parenchyma: heterogeneous Isthmus Thickness: 1.0 cm NODULES RIGHT: # of nodules measured on right: innumerable, unable to consistently follow areas measured pr eviously, diffusely heterogeneous LEFT: # of nodules measured on left: multiple, measured the largest 1. 1.8 X 1.5 x 1.0 cm, upper , mixed cystic and solid, hypoechoic nodule, which is wider than tall, with smooth margins, without echogenic foci. Prior size: 2.0 x 1.7 x 0.9 cm ISTHMUS: # of nodules measured in the isthmus: 1 - right sided 1. 2.2 X 2.2 x 1.1 cm mixed cystic and solid, hypoechoic nodule, which is wider than tall, with smo oth margins, with echogenic foci. TR 4 Prior size: 2.7 x 2.1 x 1.6 cm Bilateral neck scanned, no evidence of lymphadenopathy. IMPRESSION: Moderately suspicious nodule at the level of the isthmus. Fine-needle aspiration recommended if this has not been performed. 2017 ACR TI-RADS LEVEL: TR-RADS 4 - Moderately Suspicious: Follow if > 1 cm, FNA if > 1.5 cm *Highest TI-RADS level nodule reported
== END | disposition home or self-care (01) ==
LOC: RADUSWWP 15:34
PROVIDERS: ATTEND Internal Medicine Endocrinology, Diabetes & Metabolism
DX: E04.2 Nontoxic multinodular goiter (principal)
CPT/HCPCS: 76536

== ENCOUNTER → 2021-09-11 | Outpatient (CLI) | payer MEDICARE, BC ==
[2021-09-11 20:25] LABS: Basophils # (A) 0.04 X 10*3/uL (0.00-0.10); Basophils % (A) 0.9 %; Eosinophils # (A) 0.02 X 10*3/uL (0.04-0.35); Eosinophils % (A) 0.5 %; HGB 8.6 g/dL (12.0-15.0); Lymphocytes % (A) 9.4 %; MCH 33.9 pg (27.0-32.0); MCHC 31.9 g/dL (32.0-37.0); MCV 106.3 fL (80.0-97.0); Mean Platelet Volume 10.3 fL (9.5-12.2); Monocytes # (A) 0.15 X 10*3/uL (0.20-1.00); Monocytes % (A) 3.5 %; Neutrophils # (A) 3.58 X 10*3/uL (1.80-7.70); Neutrophils % (A) 84.5 %; Platelet Count 360 X 10*3/uL (140-440); RBC 2.54 X 10*6/uL (4.10-5.20); RDW 19.4 % (11.5-14.5); WBC 4.24 X 10*3/uL (4.50-10.00)
[2021-09-12 03:55] LABS: African American GFR (CKD) 105.5 (60.0-200.0); Albumin 3.9 g/dL (3.8-4.9); Albumin/Globulin Ratio 1.95 (1.60-3.17); Anion Gap 12.4 mmol/L (4.00-12.00); BUN/Creat Ratio 25.5 Ratio (12.00-20.00); Blood Urea Nitrogen 15.3 mg/dL (9.0-27.0); Calcium 9.1 mg/dL (8.7-10.3); Carbon Dioxide 25.6 mmol/L (21.6-31.8); Non-African American GFR(CKD) 91.1 (60.0-200.0); Potassium 4.6 mmol/L (3.5-5.5); Total Bilirubin 0.3 mg/dL (0.30-1.20); Total Protein 5.9 g/dL (6.2-8.2)
== END | disposition home or self-care (01) ==
LOC: LABWHC1 15:03
PROVIDERS: ATTEND Internal Medicine
DX: C25.9 Malignant neoplasm of pancreas, unspecified (principal)
CPT/HCPCS: 36415; 80053; 85025

== ENCOUNTER → 2022-01-12 | Outpatient (CLI) | payer MEDICARE, BC ==
--- NOTE | 2022-01-16 06:54 | MR ---
EXAMINATION TYPE: MR liver wo/w con DATE OF EXAM: 01/12/2022 COMPARISON: Prior CT December 12, 2021 and older CTs. Prior PET/CT March 18, 2021 HISTORY: Liver lesions , Abnormal CT. History of sigmoid colon cancer. History of pancreatic adenocar cinoma. CONTRAST: Standard multiplanar, multisequence MRI departmental protocol images were obtained without contrast a nd with 7 mL intravenous Gadavist gadolinium contrast. Imaging performed of the abdomen focusing on the liver. FINDINGS: Liver: There is artifact from internal/external biliary drainage catheter making evaluation slightly suboptimal. There is focal moderate to severe intrahepatic biliary dilatation along the periphery of the superior right hepatic lobe seen best on coronal images 17 and 18 series 401, this has been pres ent over last several CTs. Low signal intensity from pneumobilia in the left hepatic lobe is now pres ent. There is persistent geographic diminished perfusion to the left hepatic lobe versus remainder of the liver without definitive focal mass seen to suggest metastatic lesion. Irregular area of diminis hed perfusion in inferior right hepatic lobe near image 277 series 1101 appears to have crossing vess el, no convincing evidence for new metastatic focus. Other: Patient has little intra-abdominal fat making evaluation suboptimal. There are two subcentimet er thin-walled cysts in the upper pole left kidney. Occasional punctate scattered cysts throughout th e right kidney is seen. There is susceptibility artifact from surgical clip along the inferior aspect of the right kidney. Spleen and both adrenal glands appear within normal limits. Lung bases are derrick r. No abnormal bowel dilatation. Pancreas not as well seen on MRI as there is generalized mild atroph y along with little intra-abdominal fat it is better evaluated on CT. Osseous structures are intact. IMPRESSION: New areas of concern in liver have similar appearance to recent CT, favor areas of dimini shed perfusion, new metastatic lesions felt less likely.
== END | disposition home or self-care (01) ==
LOC: RADMRIMAIN 12:00
PROVIDERS: ATTEND Internal Medicine
DX: K76.9 Liver disease, unspecified (principal); C25.9 Malignant neoplasm of pancreas, unspecified
CPT/HCPCS: 74183; A9585

== ENCOUNTER → 2022-01-15 | Outpatient (CLI) | payer MEDICARE, BC ==
[2022-01-15 18:37] LABS: T4, Free (Free Thyroxine) 1.14 ng/dL (0.800-1.800)
== END | disposition home or self-care (01) ==
LOC: LABWHC1 14:21
PROVIDERS: ATTEND Internal Medicine Endocrinology, Diabetes & Metabolism
DX: E05.20 Thyrotoxicosis with toxic multinodular goiter without thyrotoxic crisis or storm (principal)
CPT/HCPCS: 36415; 84439; 84443; 84450; 84460

== ENCOUNTER → 2022-04-05 | Outpatient (CLI) | payer MEDICARE, BC ==
[2022-04-05 19:32] LABS: Basophils # (A) 0.03 X 10*3/uL (0.00-0.10); Basophils % (A) 0.8 %; Eosinophils # (A) 0.04 X 10*3/uL (0.04-0.35); Eosinophils % (A) 1.1 %; HCT 35.5 % (37.2-46.3); HGB 11.3 g/dL (12.0-15.0); Immature Grans, Automated 0.3 %; Lymphocytes # (A) 0.93 X 10*3/uL (0.90-5.00); Lymphocytes % (A) 24.7 %; MCHC 31.8 g/dL (32.0-37.0); MCV 94.2 fL (80.0-97.0); Mean Platelet Volume 9.3 fL (9.5-12.2); Monocytes # (A) 0.27 X 10*3/uL (0.20-1.00); Monocytes % (A) 7.2 %; NRBC Per 100 WBC 0 /100 WBCS (0.0-0.0); Neutrophils # (A) 2.48 X 10*3/uL (1.80-7.70); Neutrophils % (A) 65.9 %; Platelet Count 227 X 10*3/uL (140-440); RBC 3.77 X 10*6/uL (4.10-5.20); RDW 14.3 % (11.5-14.5); WBC 3.76 X 10*3/uL (4.50-10.00)
[2022-04-05 22:00] LABS: African American GFR (CKD) 105.5 (60.0-200.0); Albumin 4.3 g/dL (3.8-4.9); Albumin/Globulin Ratio 1.79 (1.60-3.17); Anion Gap 10.4 mmol/L (10.00-18.00); Blood Urea Nitrogen 13.8 mg/dL (9.0-27.0); Calcium 9.5 mg/dL (8.7-10.3); Carbon Dioxide 24.6 mmol/L (20.0-27.5); Globulin 2.4 g/dL (1.6-3.3); Non-African American GFR(CKD) 91.1 (60.0-200.0); Potassium 4.1 mmol/L (3.5-5.5); Total Bilirubin 0.2 mg/dL (0.30-1.20); Total Protein 6.7 g/dL (6.2-8.2)
--- NOTE | 2022-04-07 05:06 | MR ---
EXAMINATION TYPE: MR abdomen wo/w con DATE OF EXAM: 04/05/2022 COMPARISON: 01/12/2022 HISTORY: Pancreatic cancer CONTRAST: Standard multiplanar, multisequence MRI departmental protocol images were obtained without contrast a nd with mL intravenous gadolinium contrast. There is no sign of pleural effusion. Spleen is intact. The stomach appears intact. There is on the T 2 images increased signal in the pancreatic head that measures 3 cm. There is triangular-shaped defec t in the lateral aspect of the right lobe of the liver. There appears to be some air in the biliary t ree with decreased signal. The common bile duct measures 13 mm. There is no adrenal mass. Kidneys show normal size and contour. No hydronephrosis. The contrast images show normal enhancement of the kidneys. There is normal enhancement of the portal venous system. No evidence of any significant pathologic enhancement at the pancreatic head. No ascites. IMPRESSION: Postsurgical changes at the pancreatic head appear stable compared to old exam. Irregular shape defec t in the lateral right lobe of the liver consistent with a biliary drainage catheter and reactive kate nges appears stable. There is some air in the anterior biliary tree also evident on the CT scan of . No evidence of any increasing abnormality in the right upper quadrant compared to old exam. No sign of recurrent tumor.
== END | disposition home or self-care (01) ==
LOC: RADMRIMAIN 11:25
PROVIDERS: ATTEND Internal Medicine
DX: C25.9 Malignant neoplasm of pancreas, unspecified (principal); C18.7 Malignant neoplasm of sigmoid colon
CPT/HCPCS: 80053; 85025; 86301; 74183; A9585

== ENCOUNTER 2022-05-08 09:07 | Day surgery (SDC) | payer MEDICARE, BC ==
[2022-05-08 10:13] VITALS: PULSE 56; RESP 18; TEMP 98.4
[2022-05-08 10:14] VITALS: BP 116/75
--- NOTE | 2022-05-08 12:51 | US ---
EXAMINATION TYPE: US FNA thyroid first lesion DATE OF EXAM: 05/08/2022 COMPARISON: Ultrasound 09/08/2021 HISTORY: Thyroid nodule, E04.1 Maximal barrier technique was utilized. Ultrasound using sterile technique. The skin overlying the no dule in the right lobe of the thyroid towards the isthmus was localized with ultrasound and the overl zak skin prepped and draped. Lidocaine used for local anesthesia. 5 passes with a 25-gauge needle we re made into the nodule under ultrasound guidance. Aspirate specimen submitted to cytology. Following the procedure hemostasis achieved. No immediate complication IMPRESSION: Status post ultrasound-guided fine-needle aspiration of right isthmus thyroid nodule, pat nayagy pending.
== END 2022-05-08 10:05 | disposition home or self-care (01) ==
LOC: RADPROMAIN 09:07
PROVIDERS: ATTEND Internal Medicine Endocrinology, Diabetes & Metabolism
DX: E04.1 Nontoxic single thyroid nodule (principal); Z85.038 Personal history of other malignant neoplasm of large intestine; Z85.07 Personal history of malignant neoplasm of pancreas; Z88.1 Allergy status to other antibiotic agents; Z88.3 Allergy status to other anti-infective agents; Z88.5 Allergy status to narcotic agent; Z88.8 Allergy status to other drugs, medicaments and biological substances; Z79.890 Hormone replacement therapy; Z79.84 Long term (current) use of oral hypoglycemic drugs; Z90.49 Acquired absence of other specified parts of digestive tract; Z87.891 Personal history of nicotine dependence; Z80.0 Family history of malignant neoplasm of digestive organs; Z80.7 Family history of other malignant neoplasms of lymphoid, hematopoietic and related tissues
CPT/HCPCS: 10005; 88173; 88305

== ENCOUNTER → 2022-07-05 | Outpatient (CLI) | payer MEDICARE, BC ==
--- NOTE | 2022-07-07 07:36 | MR ---
EXAMINATION TYPE: MR abdomen wo/w con DATE OF EXAM: 07/05/2022 COMPARISON: 04/05/2022 HISTORY: Anemia pancreatic cancer CONTRAST: Standard multiplanar, multisequence MRI departmental protocol images were obtained without contrast a nd with 7 mL intravenous gadolinium contrast. The liver is normal size. There are some locally dilated bile ducts in the lateral right lobe of the liver with some narrowing of the lumen that could be a stricture of the right hepatic duct. The splee n appears intact. No evidence of pancreatic mass. There is some air in the anterior biliary tree with decreased signal. There is no adrenal mass. Kidneys show satisfactory contrast opacification. There is no hydronephrosi s. No retroperitoneal adenopathy. There is normal enhancement of the portal venous system. There is a linear defect in the lateral right lobe of the liver consistent with drainage catheter. No pleural e ffusion. There is no sign of ascites. No sign of pleural effusion. No sign of a bowel obstruction. IMPRESSION: There is air refluxed into the anterior biliary tree. There is some stricturing of the right hepatic duct similar to old exam. Mildly dilated local bile ducts in the lateral right lobe of the liver. No evidence of any significant pancreatic mass. This appears similar to old exam. Defect in the liver related to apparent drainage catheter without change.
== END | disposition home or self-care (01) ==
LOC: RADMRIMAIN 12:13
PROVIDERS: ATTEND Internal Medicine
DX: C25.9 Malignant neoplasm of pancreas, unspecified (principal); K76.89 Other specified diseases of liver
CPT/HCPCS: 74183; A9585

== ENCOUNTER 2022-10-17 15:13 | Emergency (ER) | payer MEDICARE, BC ==
[2022-10-17 15:50] LABS: Glucose,Whole Blood 348 mg/dL (70-110)
[2022-10-17 16:13] LABS: Basophils % (A) 1 %; Eosinophils % (A) 1 %; HCT 35.3 % (34.0-46.0); HGB 11.8 gm/dL (11.4-16.0); Lymphocytes % (A) 26 %; MCH 31.3 pg (25.0-35.0); MCHC 33.4 g/dL (31.0-37.0); MCV 93.9 fL (80.0-100.0); Mean Platelet Volume 7.8; Monocytes # (A) 0.2 k/uL (0-1.0); Monocytes % (A) 6 %; Neutrophils # (A) 2.5 k/uL (1.3-7.7); Neutrophils % (A) 65 %; Platelet Count 209 k/uL (150-450); RBC 3.76 m/uL (3.80-5.40); WBC 3.8 k/uL (3.8-10.6)
[2022-10-17 16:23] LABS: ALT 30 U/L (4-34); AST 27 U/L (14-36); African American GFR (CKD) >90 (>60 ml/min/1.73 sqM); Albumin 3.9 g/dL (3.5-5.0); Alkaline Phosphatase 142 U/L (38-126); Anion Gap 7 mmol/L; Blood Urea Nitrogen 9 mg/dL (7-17); Calcium 9.2 mg/dL (8.4-10.2); Carbon Dioxide 24 mmol/L (22-30); Chloride 105 mmol/L (98-107); Glucose 349 mg/dL (74-99); Non-African American GFR(CKD) >90 (>60 ml/min/1.73 sqM); Sodium 136 mmol/L (137-145); Total Bilirubin 0.3 mg/dL (0.2-1.3); Total Protein 6.5 g/dL (6.3-8.2)
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
[2022-10-17 17:38] LABS: Appearance,Urine Clear (Clear); Bilirubin,Urine Negative (Negative); Blood,Urine Negative (Negative); Budding Yeast,Urine Rare /hpf; Color,Urine Light Yellow; Glucose,Urine (UA) 4+ (Negative); Ketones,Urine Negative (Negative); Leukocyte Esterase,Urine Trace (Negative); Mucus,Urine Rare /hpf; Nitrite,Urine Negative (Negative); Protein,Urine Negative (Negative); RBC,Urine 6 /hpf (0-5); Squamous Epithelial Cell,Urine 1 /hpf (0-4); Urobilinogen,Urine <2.0 mg/dL (<2.0); WBC,Urine <1 /hpf (0-5)
[2022-10-17] MEDS ORDERED: SODIUM CHLORIDE 0.9% 1,000 ML IV ONE (18:06)
[2022-10-17] MEDS ORDERED: INSULIN REGULAR 100 UNIT/ML VIAL (IV) SQ STA (18:06)
[2022-10-17 18:22] VITALS: TEMP 98.9
[2022-10-17 18:26] LABS: Glucose,Whole Blood 285 mg/dL (70-110)
[2022-10-17 20:01] VITALS: BP 133/73; PULSE 68; RESP 16
[2022-10-17] MEDS ORDERED: MECLIZINE 12.5 MG TAB PO STA (20:04)
[2022-10-17 20:18] LABS: Glucose,Whole Blood 158 mg/dL (70-110)
[2022-10-17 21:17] LABS: Glucose,Whole Blood 91 mg/dL (70-110)
== END 2022-10-17 21:27 | disposition home or self-care (01) ==
LOC: EC 15:13
DX: E11.65 Type 2 diabetes mellitus with hyperglycemia (principal); J45.909 Unspecified asthma, uncomplicated; E05.90 Thyrotoxicosis, unspecified without thyrotoxic crisis or storm; Z88.8 Allergy status to other drugs, medicaments and biological substances; Z90.89 Acquired absence of other organs; Z90.710 Acquired absence of both cervix and uterus; Z79.84 Long term (current) use of oral hypoglycemic drugs; Z79.899 Other long term (current) drug therapy; Z87.891 Personal history of nicotine dependence
CPT/HCPCS: 36415 ×2; 93005; 80053; 82565; 83605; 84520; 84484; 85025; 81001; 70470; 96360; 96361; 99284; Q9967

== ENCOUNTER → 2022-10-17 | Outpatient (CLI) | payer MEDICARE, BC ==
[2022-10-17 13:49] LABS: African American GFR (CKD) >90 (>60 ml/min/1.73 sqM); Blood Urea Nitrogen 11 mg/dL (7-17); Non-African American GFR(CKD) >90 (>60 ml/min/1.73 sqM)
--- NOTE | 2022-10-17 14:43 | CT ---
EXAMINATION TYPE: CT brain wo/w con DATE OF EXAM: 10/17/2022 COMPARISON: None HISTORY: DIZZINESS AND GIDDINESS CT DLP: 2327mGycm CONTRAST: CT scan of the head is performed without and with IV Contrast, patient injected with 70 mL of Isovue 300. Unenhanced followed by contrast enhanced CT of the brain is submitted for evaluation. The ventricles are midline. There is no evidence for intracranial hemorrhage or extra-axial collection. No mass e ffects are identified. Visualized bony calvarium is intact. Contrast is administered and no enhanci ng lesions are detected. No pathologic enhancement is identified. If symptoms persist consider MRI. IMPRESSION: Unremarkable CT brain.
== END | disposition home or self-care (01) ==
LOC: RADCTMAIN 13:10
PROVIDERS: ATTEND Family Medicine
DX: R42 Dizziness and giddiness (principal)
CPT/HCPCS: 82565; 84520; 70470; 36415; Q9967

== ENCOUNTER 2022-10-22 13:40 | Emergency (ER) | payer MEDICARE, BC ==
[2022-10-22] MEDS ORDERED: SODIUM CHLORIDE 0.9% 1,000 ML IV ONE (15:36)
[2022-10-22 16:19] LABS: Basophils % (A) 0 %; Eosinophils % (A) 1 %; HCT 36.9 % (34.0-46.0); HGB 12.4 gm/dL (11.4-16.0); Lymphocytes # (A) 1.2 k/uL (1.0-4.8); Lymphocytes % (A) 31 %; MCH 31.5 pg (25.0-35.0); MCHC 33.6 g/dL (31.0-37.0); MCV 93.6 fL (80.0-100.0); Mean Platelet Volume 8.2; Monocytes # (A) 0.2 k/uL (0-1.0); Monocytes % (A) 4 %; Neutrophils # (A) 2.3 k/uL (1.3-7.7); Neutrophils % (A) 61 %; Platelet Count 223 k/uL (150-450); RBC 3.94 m/uL (3.80-5.40); RDW 13.4 % (11.5-15.5); WBC 3.7 k/uL (3.8-10.6)
[2022-10-22 16:31] LABS: ALT 34 U/L (4-34); AST 37 U/L (14-36); African American GFR (CKD) >90 (>60 ml/min/1.73 sqM); Albumin 4.3 g/dL (3.5-5.0); Alkaline Phosphatase 150 U/L (38-126); Anion Gap 5 mmol/L; Blood Urea Nitrogen 10 mg/dL (7-17); Calcium 9.5 mg/dL (8.4-10.2); Carbon Dioxide 29 mmol/L (22-30); Chloride 104 mmol/L (98-107); Glucose 280 mg/dL (74-99); Non-African American GFR(CKD) >90 (>60 ml/min/1.73 sqM); Potassium 3.7 mmol/L (3.5-5.1); Sodium 138 mmol/L (137-145); Total Bilirubin 0.5 mg/dL (0.2-1.3)
[2022-10-22 16:53] LABS: Appearance,Urine Clear (Clear); Bilirubin,Urine Negative (Negative); Blood,Urine Negative (Negative); Color,Urine Light Yellow; Glucose,Urine (UA) 4+ (Negative); Ketones,Urine Negative (Negative); Leukocyte Esterase,Urine Negative (Negative); Nitrite,Urine Negative (Negative); Protein,Urine Negative (Negative); Specific Gravity,Urine 1.003 (1.001-1.035); Urobilinogen,Urine <2.0 mg/dL (<2.0)
--- NOTE | 2022-10-22 17:06 | CT ---
EXAMINATION TYPE: CT abdomen pelvis wo con CT DLP: 431.6 mGycm, Automated exposure control for dose reduction was used. DATE OF EXAM: 10/22/2022 4:34 PM COMPARISON: CT abdomen pelvis most recent from 12/12/2021. MR liver 01/22/2022, MRI abdomen 07/05/2022. CLINICAL INDICATION:Female, 72 years old with history of Hx of pancreatic CA; hyperglycemic and Hx of pancreatic CA. TECHNIQUE: Axial CT of the abdomen and pelvis. Sagittal and coronal reformats were created on a [employer] workstation. Contrast used: None Oral contrast used: without Oral Contrast FINDINGS: LOWER CHEST: Unremarkable ABDOMEN LIVER: Redemonstration of pneumobilia biliary with intrahepatic biliary dilatation. Pigtail catheter within the biliary system transverses the liver with distal tip terminating within the duodenum as se en on prior. There is geographic areas of low attenuation and increased attenuation of varying degree s throughout the liver. Overall pneumobilia is similar along with intrahepatic dilation in morphology to the liver when comparing to most recent CT of 12/12/2021. GALLBLADDER AND BILE DUCTS: Unremarkable. PANCREAS: Posterior surgical changes of the pancreatic head with anatomy somewhat limited given lack of IV contrast. Overall the morphology appears similar to prior CT on 12/12/2021. SPLEEN: Nonenlarged ADRENAL GLANDS: Unremarkable. KIDNEYS AND URETERS: No evidence of hydronephrosis or renal calculus. The ureters are unremarkable. PELVIS BLADDER: Unremarkable REPRODUCTIVE: Unremarkable. ABDOMEN & PELVIS STOMACH AND BOWEL: No evidence of bowel obstruction. Postsurgical changes to the colon. There is a la rge stool burden throughout the colon. PERITONEUM: No evidence of pneumoperitoneum or free fluid. VASCULATURE: No evidence of aortic aneurysm. Scattered atherosclerosis of the arterial vasculature. MUSCULOSKELETAL: No acute osseous abnormalities LYMPH NODES: No gross evidence for lymphadenopathy. SOFT TISSUE/ABDOMINAL WALL: Unremarkable IMPRESSION: 1. Similar postsurgical changes with similar morphology to liver and intrahepatic pneumobilia. A kristofer iary drain is in similar position. Redemonstration of hypodense areas in the liver which could be rel ated to differential hepatic perfusion versus ischemic areas or developing infarcts, these are simila r to prior given differences in noncontrast technique. No evidence of new lymphadenopathy or mass. 2. Large stool burden throughout the colon.
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
--- NOTE | 2022-10-22 17:09 | XR ---
EXAMINATION TYPE: XR chest 2V DATE OF EXAM: 10/22/2022 4:40 PM COMPARISON: Chest radiographs from 01/21/2021 TECHNIQUE: XR chest 2V Frontal and lateral views of the chest. CLINICAL INDICATION:Female, 72 years old with history of cough; FINDINGS: Lungs/Pleura: There is no evidence of pleural effusion, focal consolidation, or pneumothorax. Pulmonary vascularity: Unremarkable. Heart/mediastinum: Cardiomediastinal silhouette is unremarkable. Musculoskeletal: No acute osseous pathology. Lines/Tubes: Right biliary drain as seen on CT same day. Surgical clips in the upper abdomen. IMPRESSION: No acute cardiopulmonary disease/process.
[2022-10-22 18:11] LABS: Glucose,Whole Blood 240 mg/dL (70-110)
[2022-10-22 18:27] VITALS: BP 138/80; PULSE 64; RESP 16; TEMP 98.1
== END 2022-10-22 18:36 | disposition home or self-care (01) ==
LOC: EC 13:40
DX: R42 Dizziness and giddiness (principal); E11.65 Type 2 diabetes mellitus with hyperglycemia; E11.36 Type 2 diabetes mellitus with diabetic cataract; J45.909 Unspecified asthma, uncomplicated; Z79.82 Long term (current) use of aspirin; Z79.84 Long term (current) use of oral hypoglycemic drugs; Z87.891 Personal history of nicotine dependence; Z88.1 Allergy status to other antibiotic agents; Z88.5 Allergy status to narcotic agent; Z88.8 Allergy status to other drugs, medicaments and biological substances
CPT/HCPCS: 36415; 71046; 74176; 80053; 81003; 83605; 84484; 85025; 85379; 93005; 96360; 99285

== ENCOUNTER → 2022-10-29 | Outpatient (CLI) | payer MEDICARE, BC ==
--- NOTE | 2022-10-29 16:27 | US ---
EXAMINATION TYPE: US thyroid st tissue head/neck DATE OF EXAM: 10/29/2022 COMPARISON: 09/08/2021 CLINICAL HISTORY: 72-year-old female E05.20 THYROTOXICOSIS ,E11.9 TYPE 2 DIABETES MELLITU. follow up thyroid nodules TECHNIQUE: Multiple sonographic images of the thyroid gland are obtained. FINDINGS: GLAND SIZE: Right Lobe: 5.9 x 2.9 x 2.8 cm Overall Parenchyma: heterogenous Left Lobe: 5.3 x 2.2 x 2.0 cm Overall Parenchyma: heterogeneous Isthmus Thickness: 0.4 cm NODULES RIGHT: # of nodules measured on right: innumerable. The parenchyma is diffusely heterogenous. Discr ete nodules were not measured. LEFT: # of nodules measured on left: multiple, measured the largest 1. 1.9 X 1.6 x 0.9 cm, upper , mixed cystic and solid, hypoechoic TR 4 nodule, which is wider than tall, with smooth margins, without echogenic foci. Prior size: 1.8 x 1.5 x 1.0 cm ISTHMUS: # of nodules measured in the isthmus: 1 - right sided 1. 2.0 X 1.7 x 1.2 cm solid or almost completely solid, hypoechoic TR 5 nodule, which is wider than tall, with smooth margins, with echogenic foci. Prior size: 2.2 x 2.2 x 1.1 cm Bilateral neck scanned, no evidence of lymphadenopathy. IMPRESSION: 1. Multinodular goiter. 2. The right lobe is markedly heterogeneous and no discrete nodules are measured. 3. There are numerous nodules on the left with the largest TR4 nodule measured at 1.9 x 1.6 cm (not s ignificantly changed compared to 1.8 x 1.5 cm, previously). 4. A TR5 isthmic nodule is slightly smaller at 2.0 x 1.7 cm (versus 2.2 x 2.2 cm, previously).
[2022-10-29 18:08] LABS: T4, Free (Free Thyroxine) 1.5 ng/dL (0.800-1.800)
== END | disposition home or self-care (01) ==
LOC: RADUSWWP 14:02
PROVIDERS: ATTEND Internal Medicine Endocrinology, Diabetes & Metabolism
DX: E05.20 Thyrotoxicosis with toxic multinodular goiter without thyrotoxic crisis or storm (principal); E11.9 Type 2 diabetes mellitus without complications
CPT/HCPCS: 76536; 84439; 84443; 84450; 84460

== ENCOUNTER → 2022-11-01 | Outpatient (CLI) | payer MEDICARE, BC ==
[2022-11-01 23:10] LABS: Cancer Antigen 19-9 27.5 U/mL (0.0-34.9); Carcinoembryonic Antigen 7.9 ng/mL (0.0-4.9)
[2022-11-01 23:35] LABS: % Iron Saturation 28.27 (12.00-45.00); Ferritin 48.8 ng/mL (10.0-291.0)
[2022-11-02 00:41] LABS: Basophils # (A) 0.02 X 10*3/uL (0.00-0.10); Basophils % (A) 0.9 %; Eosinophils # (A) 0.01 X 10*3/uL (0.04-0.35); Eosinophils % (A) 0.4 %; HCT 36.8 % (37.2-46.3); HGB 11.6 g/dL (12.0-15.0); Immature Grans, Automated 0 %; Lymphocytes # (A) 0.54 X 10*3/uL (0.90-5.00); Lymphocytes % (A) 23.4 %; MCH 30.7 pg (27.0-32.0); MCHC 31.5 g/dL (32.0-37.0); MCV 97.4 fL (80.0-97.0); Mean Platelet Volume 10.5 fL (9.5-12.2); Monocytes # (A) 0.17 X 10*3/uL (0.20-1.00); Monocytes % (A) 7.4 %; NRBC Per 100 WBC 0 /100 WBCS (0.0-0.0); Neutrophils # (A) 1.57 X 10*3/uL (1.80-7.70); Neutrophils % (A) 67.9 %; Platelet Count 199 X 10*3/uL (140-440); RBC 3.78 X 10*6/uL (4.10-5.20); RDW 13.5 % (11.5-14.5); WBC 2.31 X 10*3/uL (4.50-10.00)
[2022-11-02 03:27] LABS: Albumin 4.2 g/dL (3.8-4.9); Anion Gap 10.2 mmol/L (10.00-18.00); BUN/Creat Ratio 13.79 Ratio (12.00-20.00); Blood Urea Nitrogen 9.4 mg/dL (9.0-27.0); Calcium 9.5 mg/dL (8.7-10.3); Globulin 2.1 g/dL (1.6-3.3); Potassium 5.4 mmol/L (3.5-5.5); Total Bilirubin 0.4 mg/dL (0.30-1.20); Total Protein 6.4 g/dL (6.2-8.2)
[2022-11-02 03:34] LABS: African American GFR (CKD) 100.4 (60.0-200.0); Non-African American GFR(CKD) 86.6 (60.0-200.0)
== END | disposition home or self-care (01) ==
LOC: LABWHC1 11:43
PROVIDERS: ATTEND Internal Medicine
DX: C18.7 Malignant neoplasm of sigmoid colon (principal); C25.9 Malignant neoplasm of pancreas, unspecified; D64.9 Anemia, unspecified
CPT/HCPCS: 36415; 80053; 82306; 82378; 82607; 82728; 83540; 83550; 85025; 86301

== ENCOUNTER → 2022-11-01 | Outpatient (CLI) | payer MEDICARE, BC ==
--- NOTE | 2022-11-01 13:57 | CT ---
EXAMINATION TYPE: CT ChestAbdPelvis w con CT DLP: 557.7 mGycm, Automated exposure control for dose reduction was used. DATE OF EXAM: 11/01/2022 1:42 PM COMPARISON: CT abdomen pelvis 10/22/2022, PET/CT 03/18/2021, CT chest abdomen pelvis 12/12/2021, MR abd omen 07/05/2022. CLINICAL INDICATION:Female, 72 years old with history of C25.9 malignant neoplasm pancreas C18.7 colo n ca; PHH, h/o colon and pancratic CA Technique: Multiple axial images of the chest, abdomen, and pelvis were obtained following the intrav enous administration of 70 mL Isovue-300. Two-dimensional coronal and sagittal reconstructions were o btained. Findings: CHEST: LUNGS/ PLEURA: No pneumothorax, pleural effusion, focal consolidation. Stable fibroglandular nodule a t the posterior aspect of the left lung base. No new or enlarging pulmonary nodules. Scattered bilate ral linear pulmonary atelectasis. AIRWAY: Patent and unremarkable.. HEART: Stable mildly prominent heart. No pericardial effusion. . MEDIASTINUM: No gross evidence of adenopathy. VASCULATURE: No aortic aneurysm. Atherosclerotic calcification of the aorta and its branches. MUSCULOSKELETAL: No acute osseous abnormalities. No aggressive osseous lesion. SOFT TISSUES/LYMPH NODES: Unremarkable. LOWER NECK: Stable enlarged multinodular thyroid gland with coarse calcification. ABDOMEN: ABDOMEN LIVER: Persistent geographic hypodense area seen along the anterior aspect the left hepatic lobe, pos sibly representing area of differential perfusion with chronic infarct. Redemonstration of irregular hyperdense area in the inferior aspect of the right hepatic lobe which is more prominent hypodense on today's exam. Overall size is unchanged from prior exam. This again could relate to differential per fusion/infarct however metastasis is not entirely excluded. No new hepatic lesions. BILE DUCTS: Stable internal/external biliary drain seen in the proximal jejunal loops. Persistent pne umobilia. PANCREAS: Persistent hypodensity of the mid and distal aspects of the pancreatic body and tail withou t definite measurable lesion identified. SPLEEN: Unremarkable. ADRENAL GLANDS: Unremarkable. KIDNEYS AND URETERS: No evidence of hydronephrosis or renal calculus. The kidneys enhance symmetrical ly. Stable bilateral subset or cortical thinning foci which are too small to characterize but likely represent cysts. PELVIS BLADDER: Unremarkable REPRODUCTIVE: The uterus is surgically absent. No suspicious adnexal mass. ABDOMEN & PELVIS STOMACH AND BOWEL: Gastrojejunostomy and choledochojejunostomy are again seen. Unremarkable colonic a nastomosis in the pelvis. No evidence of bowel obstruction. PERITONEUM: No evidence of pneumoperitoneum or free fluid. VASCULATURE: No evidence of aortic aneurysm. MUSCULOSKELETAL: No acute osseous abnormalities. No aggressive osseous lesion. Moderate osteoarthriti c changes of the left hip. LYMPH NODES: No gross evidence for lymphadenopathy. SOFT TISSUE/ABDOMINAL WALL: Unremarkable IMPRESSION: 1. No new suspicious or progressive lung lesion. No evidence of metastatic disease within the chest. 2. Unchanged residual pancreatic tissue with persistent hypodense areas in the liver. The one in the inferior right hepatic lobe demonstrates more hypodense appearance from prior examination. This is fa vored to represent differential hepatic perfusion and/or chronic infarct. Metastasis is not entirely excluded. Attention on follow-up.
== END | disposition home or self-care (01) ==
LOC: RADCTMAIN 11:05
PROVIDERS: ATTEND Internal Medicine
DX: D64.9 Anemia, unspecified (principal); C18.7 Malignant neoplasm of sigmoid colon; C25.9 Malignant neoplasm of pancreas, unspecified; Z87.59 Personal history of other complications of pregnancy, childbirth and the puerperium
CPT/HCPCS: 71260; 74177; Q9967

== ENCOUNTER 2022-11-17 23:47 | Inpatient (IN) | payer MEDICARE, BC ==
[2022-11-18 00:13] LABS: Glucose,Whole Blood 248 mg/dL (70-110)
[2022-11-18] MEDS ORDERED: ONDANSETRON 4 MG/2 ML VIAL IVP STA (00:42)
[2022-11-18] MEDS ORDERED: MORPHINE SULFATE 4 MG/ML SYRINGE IV STA (00:42)
[2022-11-18] MEDS ORDERED: SODIUM CHLORIDE 0.9% 500 ML 500 ML IV STA (00:42)
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
[2022-11-18 01:11] LABS: Basophils % (A) 1 %; Eosinophils % (A) 1 %; HCT 34.3 % (34.0-46.0); HGB 11.3 gm/dL (11.4-16.0); Lymphocytes # (A) 0.7 k/uL (1.0-4.8); Lymphocytes % (A) 28 %; MCH 30.3 pg (25.0-35.0); MCV 91.8 fL (80.0-100.0); Mean Platelet Volume 7.9; Monocytes # (A) 0.1 k/uL (0-1.0); Monocytes % (A) 6 %; Neutrophils # (A) 1.6 k/uL (1.3-7.7); Neutrophils % (A) 64 %; Platelet Count 169 k/uL (150-450); RBC 3.74 m/uL (3.80-5.40); RDW 13.4 % (11.5-15.5); WBC 2.5 k/uL (3.8-10.6)
[2022-11-18 01:16] LABS: Appearance,Urine Clear (Clear); Bacteria,Urine Rare /hpf; Bilirubin,Urine Negative (Negative); Blood,Urine Negative (Negative); Calcium Oxalate Crystals,Urine Occasional /hpf; Color,Urine Yellow; Glucose,Urine (UA) 4+ (Negative); Ketones,Urine 1+ (Negative); Leukocyte Esterase,Urine Small (Negative); Mucus,Urine Rare /hpf; Nitrite,Urine Negative (Negative); Protein,Urine Trace (Negative); RBC,Urine 1 /hpf (0-5); Specific Gravity,Urine 1.017 (1.001-1.035); Squamous Epithelial Cell,Urine <1 /hpf (0-4); Urobilinogen,Urine <2.0 mg/dL (<2.0); WBC,Urine 29 /hpf (0-5)
[2022-11-18 01:19] LABS: ALT 41 U/L (4-34); AST 46 U/L (14-36); African American GFR (CKD) >90 (>60 ml/min/1.73 sqM); Albumin 4.2 g/dL (3.5-5.0); Alkaline Phosphatase 116 U/L (38-126); Amylase 41 U/L (30-110); Anion Gap 7 mmol/L; Blood Urea Nitrogen 13 mg/dL (7-17); Calcium 9.2 mg/dL (8.4-10.2); Carbon Dioxide 24 mmol/L (22-30); Chloride 105 mmol/L (98-107); Glucose 256 mg/dL (74-99); Lipase <10 U/L (23-300); Non-African American GFR(CKD) >90 (>60 ml/min/1.73 sqM); Sodium 136 mmol/L (137-145); Total Bilirubin 0.7 mg/dL (0.2-1.3); Total Protein 6.7 g/dL (6.3-8.2)
[2022-11-18 01:22] LABS: Potassium 4.1 mmol/L (3.5-5.1)
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
[2022-11-18] MEDS ORDERED: ACETAMINOPHEN TAB 325 MG TAB PO PRN (02:24)
[2022-11-18] MEDS ORDERED: NALOXONE 0.4 MG/ML 1 ML VIAL IV PRN (02:24)
[2022-11-18] MEDS: SODIUM CHLORIDE 0.9% 1,000 ML IV SCH ×2 (03:17→15:58)
[2022-11-18] MEDS ORDERED: ONDANSETRON 4 MG/2 ML VIAL IVP PRN (03:43)
[2022-11-18] MEDS ORDERED: DEXTROSE 50% SYRINGE 50 ML IVP PRN ×2 (03:49)
[2022-11-18] MEDS: MORPHINE SULFATE 4 MG/ML SYRINGE IVP PRN ×4 (05:39→21:33)
[2022-11-18 06:12] LABS: Glucose,Whole Blood 231 mg/dL (70-110)
[2022-11-18] MEDS: INSULIN ASPART (NovoLOG) 100 UNIT/ML VIAL SQ SCH ×4 (08:03→21:34)
[2022-11-18 11:34] LABS: Glucose,Whole Blood 209 mg/dL (70-110)
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
[2022-11-18 16:57] LABS: Glucose,Whole Blood 96 mg/dL (70-110)
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
[2022-11-18 20:08] LABS: Glucose,Whole Blood 151 mg/dL (70-110)
[2022-11-19 05:56] LABS: Glucose,Whole Blood 156 mg/dL (70-110)
[2022-11-19] MEDS: INSULIN ASPART (NovoLOG) 100 UNIT/ML VIAL SQ SCH ×4 (06:44→22:07)
[2022-11-19 08:54] LABS: Basophils # (A) 0.01 X 10*3/uL (0.00-0.10); Basophils % (A) 0.4 %; Eosinophils # (A) 0.02 X 10*3/uL (0.04-0.35); Eosinophils % (A) 0.7 %; HCT 32.8 % (37.2-46.3); HGB 10.5 g/dL (12.0-15.0); Immature Grans, Automated 0 %; Lymphocytes # (A) 0.89 X 10*3/uL (0.90-5.00); Lymphocytes % (A) 32.2 %; MCH 30.6 pg (27.0-32.0); MCV 95.6 fL (80.0-97.0); Mean Platelet Volume 10.9 fL (9.5-12.2); Monocytes # (A) 0.27 X 10*3/uL (0.20-1.00); Monocytes % (A) 9.8 %; NRBC Per 100 WBC 0 /100 WBCS (0.0-0.0); Neutrophils # (A) 1.57 X 10*3/uL (1.80-7.70); Neutrophils % (A) 56.9 %; Platelet Count 164 X 10*3/uL (140-440); RBC 3.43 X 10*6/uL (4.10-5.20); RDW 13.4 % (11.5-14.5); WBC 2.76 X 10*3/uL (4.50-10.00)
[2022-11-19 08:59] LABS: ALT 26 U/L (8-44); AST 20 U/L (13-35); African American GFR (CKD) 119.8 (60.0-200.0); Albumin 3.2 g/dL (3.8-4.9); Albumin/Globulin Ratio 2.13 (1.60-3.17); Alkaline Phosphatase 105 U/L (41-126); Bilirubin, Conjugated <0.20 mg/dL (0.20-0.40); Blood Urea Nitrogen 11.2 mg/dL (9.0-27.0); Calcium 8.9 mg/dL (8.7-10.3); Carbon Dioxide 25.7 mmol/L (20.0-27.5); Chloride 107 mmol/L (96-109); Globulin 1.5 g/dL (1.6-3.3); Glucose 168 mg/dL (70-110); Non-African American GFR(CKD) 103.3 (60.0-200.0); Potassium 3.6 mmol/L (3.5-5.5); Sodium 142 mmol/L (135-145); Total Protein 4.7 g/dL (6.2-8.2)
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
--- NOTE | 2022-11-19 12:57 | FL ---
INDICATION: Patient age:Female; 72 years old; Reason for study: 0800; [facility]. COMPARISON: CT abdomen and pelvis 11/18/2022. TECHNIQUE: The procedure was explained and patient history elicited. All patient questions were ans wered prior to start of procedure. A malariologist radiograph of the abdomen was also reviewed. The patient was asked to ingest liquid Barium.and incremental frontal abdominal radiographs were then taken until contrast was visualized in the cecum. Radiographs taken: 6 FINDINGS: The malariologist abdominal radiograph demonstrates a normal bowel gas pattern without dilated loops of small or large bowel. Moderate amount stool is present within the colon. Postsurgical changes with surgica l clips in the right upper quadrant and right midabdomen. Pigtail catheter demonstrated within the ri ght upper quadrant. . No abnormal calcifications. The visualized osseous structures are intact. Postsurgical changes from Whipple procedure. Contrast is seen extending into the proximal transverse colon by 2 hours. Dilated proximal small bowel measuring up to 5 cm without focal transition point. N o extraluminal extravasation of contrast material. IMPRESSION: Dilated proximal small bowel without focal transition point or significant obstruction. This is likel y related to an ileus.
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
[2022-11-19] MEDS ORDERED: MAGNESIUM HYDROXIDE 2,400 MG/10 ML CUP PO STA (14:31)
[2022-11-19 14:36] VITALS: BMI 20.5
[2022-11-19 16:31] LABS: Glucose,Whole Blood 156 mg/dL (70-110)
[2022-11-19] MEDS: SODIUM CHLORIDE 0.9% 1,000 ML IV SCH ×2 (16:36→17:34)
[2022-11-19] MEDS: LACTULOSE 20 GM/30 ML CUP PO SCH ×2 (16:37→22:08)
[2022-11-19 19:26] VITALS: RESP 16
[2022-11-19 20:37] LABS: Glucose,Whole Blood 245 mg/dL (70-110)
[2022-11-20] MEDS: SODIUM CHLORIDE 0.9% 1,000 ML IV SCH (07:01)
[2022-11-20 07:04] LABS: Glucose,Whole Blood 237 mg/dL (70-110)
[2022-11-20 07:27] VITALS: TEMP 97.6
[2022-11-20] MEDS: INSULIN ASPART (NovoLOG) 100 UNIT/ML VIAL SQ SCH ×2 (07:29→11:53)
[2022-11-20] MEDS: LACTULOSE 20 GM/30 ML CUP PO SCH (07:59)
[2022-11-20 11:13] LABS: Glucose,Whole Blood 224 mg/dL (70-110)
[2022-11-20 11:41] LABS: African American GFR (CKD) >90 (>60 ml/min/1.73 sqM); Anion Gap 3 mmol/L; Blood Urea Nitrogen 6 mg/dL (7-17); Calcium 8.7 mg/dL (8.4-10.2); Carbon Dioxide 33 mmol/L (22-30); Chloride 105 mmol/L (98-107); Glucose 202 mg/dL (74-99); Non-African American GFR(CKD) >90 (>60 ml/min/1.73 sqM); Sodium 141 mmol/L (137-145)
--- NOTE | 2022-11-20 11:49 | P.PN ---
Subjective Progress Note Date: 11/20/22 CHIEF COMPLAINT: Abdominal pain HISTORY OF PRESENT ILLNESS: Patient presents to the hospital with abdominal pain and concerns for mechanical small bowel obstruction noted on computed tomography scan. Patient underwent small bowel follow-through with a dilated proximal small bowel without focal transition point or significant obstruction. This is likely related to an ileus. The patient received lactulose, milk of magnesia and enema for her severe constipation. Patient had multiple bowel movements that are becoming larger in size. Patient is tolerating a low fiber diet. She reports that her abdominal pain has improved. Denies any nausea vomiting. She has been up and ambulating. She is having a good amount of flatus. Afebrile. They're working on discharging patient home. Sodium 141 potassium is 4.0 creatinine 0.40 glucose 224 PHYSICAL EXAM: VITAL SIGNS: Reviewed GENERAL: Well-developed in no acute distress. HEENT: No sclera icterus. Extraocular movements grossly intact. Moist buccal mucosa. Head is atraumatic, normocephalic. Hears conversational speech. No nasal drainage. NECK: Supple without lymphadenopathy. CHEST: Non-labored respirations and equal bilateral excursions. CARDIOVASCULAR: Palpable 2+ radial pulses. ABDOMEN: Soft. Nondistended. Left upper quadrant incisional hernia, reducible. Mild tenderness with palpation. No peritonitis. MUSCULOSKELETAL: No clubbing or cyanosis. NEUROLOGIC: No focal or lateralizing signs. Cranial nerves II through XII grossly intact. PSYCH: Appropriate affect. Alert and oriented to person, place and time. SKIN: Well perfused. Good skin turgor. ASSESSMENT: 1. Abdominal pain due to ileus from severe constipation 2. Moderate retained feces 3. Poorly controlled diabetes type 2 with hyperglycemia 4. History of Whipple procedure with complications 5. Biliary stents PLAN: -Patient is having bowel movements and tolerating diet. -Patient can be discharged from surgical standpoint when medically cleared -Continue a good bowel regimen at home Physician Oil Well Cable Tool Operator note has been reviewed by physician. Signing provider agrees with the documented findings, assessment, and plan of care. Objective - Vital Signs Vital signs: Vital Signs Temp 97.6 F 11/20/22 07:26 Pulse 46 L 11/20/22 07:26 Resp 16 11/20/22 07:26 BP 159/70 11/20/22 07:26 Pulse Ox 97 11/20/22 07:26 FiO2 Intake & Output 11/19/22 11/20/22 11/20/22 18:59 06:59 18:59 Weight 54.431 kg Other: # Voids 2 4 # Bowel Movements 3 - Labs CBC & Chem 7: 11/19/22 05:14 11/20/22 11:09 Labs: Abnormal Lab Results - Last 24 Hours (Table) 11/19/22 11/19/22 11/20/22 Range/Units 16:29 20:36 06:01 Carbon Dioxide (22-30) mmol/L BUN (7-17) mg/dL Creatinine (0.52-1.04) mg/dL Glucose (74-99) mg/dL POC Glucose (mg/dL) 156 H 245 H 237 H (70-110) mg/dL 11/20/22 11/20/22 Range/Units 11:09 11:12 Carbon Dioxide 33 H (22-30) mmol/L BUN 6 L (7-17) mg/dL Creatinine 0.40 L (0.52-1.04) mg/dL Glucose 202 H (74-99) mg/dL POC Glucose (mg/dL) 224 H (70-110) mg/dL
[2022-11-20 11:51] LABS: Basophils % (A) 1 %; Eosinophils % (A) 1 %; HGB 11.5 gm/dL (11.4-16.0); Lymphocytes # (A) 0.8 k/uL (1.0-4.8); Lymphocytes % (A) 31 %; MCH 30.1 pg (25.0-35.0); Mean Platelet Volume 7.6; Monocytes # (A) 0.2 k/uL (0-1.0); Monocytes % (A) 9 %; Neutrophils # (A) 1.5 k/uL (1.3-7.7); Neutrophils % (A) 55 %; Platelet Count 190 k/uL (150-450); RBC 3.83 m/uL (3.80-5.40); RDW 13.5 % (11.5-15.5); WBC 2.6 k/uL (3.8-10.6)
[2022-11-20 12:18] VITALS: BP 122/78; PULSE 61
--- NOTE | 2022-11-20 22:19 | P.DS ---
Providers Date of admission: 11/18/22 02:29 Attending physician: Claudia Dia Consults: 11/18/22 02:24 Consult Physician Routine Consulting Provider: Alayna Mann Consult Reason/Comments: Abdominal pain. Bowel obstruction. Do you want consulting provider notified?: Yes Primary care physician: Matt Linares [facility] Course: Diagnoses: 1. Small bowel obstruction, resolved 2. Constipation/large fecal load; Gen. surgery is consulted , improving 3. Diabetes mellitus 4. Gastroesophageal reflux disease; 5. Asymptomatic mild bradycardia, patient refused inpatient workup and wants to follow up outpatient 6. Chronic leukopenia with cervical lymphadenopathy, patient is willing to follow up with her oncologist Dr. Henson [facility] course: Patient is a pleasant 72 years old female presents with signs symptoms of bowel obstruction. Patient is improving gradually and she states. She was placed on clear liquid diet and diet advanced gradually. Today she was tolerating diet well, she is on regular diet. She reports no vomiting. Her abdominal pain improved and she returned today as 0/10. Also she is having several normal bowel movements since yesterday. She was eager to go home today and patient was cleared for discharge by surgery team. Patient has mild asymptomatic bradycardia, no chest pain, no dyspnea, no palpitation or lightheadedness/dizziness. Patient refused inpatient workup and she was to follow up outpatient, she was instructed to follow up with talent manager Dr. Banks in one week and she is agreeable. Patient also is not on beta carlito. She has chronic leukopenia and her PCP and referred her to oncologist but she missed her appointment today which she is willing to rescheduled for next week with her oncologist Dr. Henson. Also patient has mild bilateral nontender lymphadenopathy that patient is aware and willing to follow up with her oncologist and PCP as instructed. Other than that she denies any other symptoms. No headache dizziness weakness or numbness. Patient was cleared for discharge by surgery team Patient denies any other new symptoms. Problems and management plan were discussed with the patient and he verbalized understanding and acceptance Patient was found stable and can be discharged home in guarded prognosis however he needs follow-up as an outpatient. Patient was instructed to follow up with PCP Dr. Linares within one week and patient agrees Patient was instructed to follow up with surgeon Dr. Woo in 1-2 weeks and she is agreeable: Make appointment Patient was instructed to follow up with her oncologist Dr. Henson in one week and she is agreeable to reschedule her appointment patient was instructed to follow up with talent manager Dr. Michaud in one week and she is agreeable to call and make appointment Physical exam Gen: patient is a AAOx3, no distress CVS: S1-S2, RRR, no murmur Lungs: B/L CTA, no wheezing Abdomen: soft, no distention, no tenderness, positive bowel sounds Extremity: no leg edema or induration Time spent more than 35 minutes Plan - Discharge Summary Discharge Rx Participant: No New Discharge Prescriptions: New Acetaminophen Tab [Tylenol] 650 mg PO Q6HR PRN tab PRN Reason: Mild Pain Or Fever > 100.5 Continue metFORMIN HCL 1,000 mg PO BID glipiZIDE 2.5 mg PO DAILY Insulin Glargine,Hum.rec.anlog [Lantus Solostar Pen] 20 units SQ HS Discharge Medication List metFORMIN HCL 1,000 mg PO BID 01/21/21 [History] Insulin Glargine,Hum.rec.anlog [Lantus Solostar Pen] 20 units SQ HS 11/18/22 [History] glipiZIDE 2.5 mg PO DAILY 11/18/22 [History] Acetaminophen Tab [Tylenol] 650 mg PO Q6HR PRN tab 11/20/22 [Rx] Follow up Appointment(s)/Referral(s): [facility], [NON-STAFF] - 1 Week ([facility] will call you to arrange a visit) Matt Linares DO [Primary Care Provider] - 11/23/22 3:30 pm Ankit Vasquez DO [REFERRING] - 1 Week (your oncologist. Office busy at time of discharge. Please call to schedule appointment ) Nick Banks MD [STAFF PHYSICIAN] - 1 Week (office will call with appointment time talent manager ) Patient Instructions/Handouts: Bowel Obstruction (DC) Activity/Diet/Wound Care/Special Instructions: heart healthy diet activity is restricted till you see your doctor Discharge Disposition: HOME SELF-CARE
== END 2022-11-20 14:25 | disposition home or self-care (01) | DRG 390 ==
LOC: EC 23:47 → 4SSUR 11-18 02:29
PROVIDERS: ADMIT Hospitalist; ATTEND Hospitalist
DX: K56.7 Ileus, unspecified (principal); H91.90 Unspecified hearing loss, unspecified ear; K21.9 Gastro-esophageal reflux disease without esophagitis; R00.1 Bradycardia, unspecified; D72.818 Other decreased white blood cell count; E03.9 Hypothyroidism, unspecified; E11.65 Type 2 diabetes mellitus with hyperglycemia; K59.00 Constipation, unspecified; R94.5 Abnormal results of liver function studies; Z60.2 Problems related to living alone; K43.2 Incisional hernia without obstruction or gangrene; Z86.14 Personal history of Methicillin resistant Staphylococcus aureus infection; Z53.29 Procedure and treatment not carried out because of patient's decision for other reasons; Z71.3 Dietary counseling and surveillance; K76.0 Fatty (change of) liver, not elsewhere classified; Z90.3 Acquired absence of stomach [part of]; Z90.49 Acquired absence of other specified parts of digestive tract; Z90.411 Acquired partial absence of pancreas; Z87.01 Personal history of pneumonia (recurrent); Z80.0 Family history of malignant neoplasm of digestive organs; Z80.7 Family history of other malignant neoplasms of lymphoid, hematopoietic and related tissues; Z87.891 Personal history of nicotine dependence; Z88.1 Allergy status to other antibiotic agents; Z88.5 Allergy status to narcotic agent; Z85.07 Personal history of malignant neoplasm of pancreas; Z87.440 Personal history of urinary (tract) infections; Z85.038 Personal history of other malignant neoplasm of large intestine; Z79.4 Long term (current) use of insulin
CPT/HCPCS: 36415; 74177; 74250; 80048; 80053; 80076; 81001; 82150; 83036; 83690; 84145; 85025; 93005

== ENCOUNTER → 2023-03-20 | Outpatient (CLI) | payer MEDICARE, BC ==
[2023-03-20 17:18] LABS: African American GFR (CKD) >90 (>60 ml/min/1.73 sqM); Blood Urea Nitrogen 10 mg/dL (7-17); Non-African American GFR(CKD) >90 (>60 ml/min/1.73 sqM)
--- NOTE | 2023-03-20 22:42 | CT ---
EXAMINATION TYPE: CT abdomen pelvis wo/w con DATE OF EXAM: 03/20/2023 COMPARISON: To 823 INDICATION: abdominal pain, r/o mets. hx of colon and pancreatic ca. DLP: 712.20 mGycm, Automated exposure control for dose reduction was used. CONTRAST: 100 mL of Isovue 300. Study performed with Oral Contrast TECHNIQUE: Axial images were obtained from above the diaphragm to the pubic rami in the axial plane a t 5 mm thick sections. Reconstructed images are reviewed on the computer in the coronal plane. FINDINGS: Limited CT sections are obtained the lung bases. The lung bases are clear. CT ABDOMEN: Liver: Normal Spleen: Normal Pancreas: Pancreas is poorly visualized due to lack of intra-abdominal fat and contrast. There is a c atheter entering on the right with the tail in the region of the common bile duct. No dilated common bile duct is evident. Small amount of extrahepatic biliary air is not excluded. No pancreatic duct di latation is identified. The patient's pancreatic cancer is not delineated on this. Adrenal glands: The adrenal glands are normal. Gallbladder: Normal Kidneys: No masses are evident. No hydronephrosis is present. No cysts are present. No renal stone s are identified. Aorta: Vascular calcification is within the aorta. Inferior vena cava: Normal. CT PELVIS: Loops of bowel within the abdomen and pelvis are normal. Fecal debris is within the colon. Moderate fecal retention is likely present. There are loops of bowel which are incompletely distended or lac k oral contrast limiting their evaluation. Postsurgical sutures evident within the lower pelvis Appendix: Not readily identified. There may be a air filled normal appendix. No dilated tubular stru cture or inflammatory change is identified. Urinary bladder: Normal. Genitourinary structures: Uterus and ovaries are not identified. Osseous structures: No suspicious lytic or sclerotic lesions. IMPRESSIONS: 1. Patient's known pancreatic neoplasm not clearly delineated on the current examination. There is s ome fullness within the body of the pancreas at the expected region of the neoplasm. Adequate evaluat ion for interval change however cannot be performed.
[2023-03-21 02:22] LABS: Basophils # (A) 0.05 X 10*3/uL (0.00-0.10); Basophils % (A) 1.4 %; Eosinophils # (A) 0.09 X 10*3/uL (0.04-0.35); Eosinophils % (A) 2.4 %; HCT 34.4 % (37.2-46.3); Immature Grans, Automated 0.3 %; Lymphocytes # (A) 1.08 X 10*3/uL (0.90-5.00); Lymphocytes % (A) 29.3 %; MCV 96.9 fL (80.0-97.0); Mean Platelet Volume 10.2 fL (9.5-12.2); Monocytes # (A) 0.28 X 10*3/uL (0.20-1.00); Monocytes % (A) 7.6 %; NRBC Per 100 WBC 0 /100 WBCS (0.0-0.0); Neutrophils # (A) 2.17 X 10*3/uL (1.80-7.70); Platelet Count 237 X 10*3/uL (140-440); RBC 3.55 X 10*6/uL (4.10-5.20); RDW 14.4 % (11.5-14.5); WBC 3.68 X 10*3/uL (4.50-10.00)
[2023-03-21 02:36] LABS: Cancer Antigen 19-9 12.8 U/mL (0.0-34.9); Carcinoembryonic Antigen 6.1 ng/mL (0.0-4.9)
[2023-03-21 02:56] LABS: African American GFR (CKD) 104.8 (60.0-200.0); Albumin 4.3 g/dL (3.8-4.9); Albumin/Globulin Ratio 1.72 (1.60-3.17); Anion Gap 9.5 mmol/L (10.00-18.00); BUN/Creat Ratio 15.33 Ratio (12.00-20.00); Blood Urea Nitrogen 9.2 mg/dL (9.0-27.0); Calcium 9.3 mg/dL (8.7-10.3); Carbon Dioxide 24.5 mmol/L (20.0-27.5); Globulin 2.5 g/dL (1.6-3.3); Non-African American GFR(CKD) 90.4 (60.0-200.0); Potassium 4.5 mmol/L (3.5-5.5); Total Bilirubin 0.3 mg/dL (0.30-1.20); Total Protein 6.8 g/dL (6.2-8.2)
== END | disposition home or self-care (01) ==
LOC: RADCTMAIN 16:18
PROVIDERS: ATTEND Internal Medicine
DX: C18.7 Malignant neoplasm of sigmoid colon (principal); C25.9 Malignant neoplasm of pancreas, unspecified
CPT/HCPCS: 80053; 82378; 82565; 84520; 85025; 82306; 86301; 74178; 36415; Q9967

== ENCOUNTER 2023-05-06 20:55 | Inpatient (IN) | payer MEDICARE, BC ==
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
[2023-05-06 23:40] LABS: Basophils % (A) 0 %; Eosinophils % (A) 0 %; HCT 36.1 % (34.0-46.0); HGB 11.1 gm/dL (11.4-16.0); Lymphocytes # (A) 0.4 k/uL (1.0-4.8); Lymphocytes % (A) 6 %; MCH 29.8 pg (25.0-35.0); MCHC 30.9 g/dL (31.0-37.0); MCV 96.6 fL (80.0-100.0); Mean Platelet Volume 7.8; Monocytes # (A) 0.2 k/uL (0-1.0); Monocytes % (A) 4 %; Neutrophils # (A) 5.2 k/uL (1.3-7.7); Neutrophils % (A) 89 %; Platelet Count 206 k/uL (150-450); RBC 3.74 m/uL (3.80-5.40); RDW 14.4 % (11.5-15.5); WBC 5.8 k/uL (3.8-10.6)
[2023-05-06 23:49] LABS: ALT 31 U/L (4-34); AST 39 U/L (14-36); African American GFR (CKD) >90 (>60 ml/min/1.73 sqM); Albumin 4.3 g/dL (3.5-5.0); Alkaline Phosphatase 225 U/L (38-126); Amylase 52 U/L (30-110); Anion Gap 8 mmol/L; Blood Urea Nitrogen 11 mg/dL (7-17); Calcium 9.4 mg/dL (8.4-10.2); Carbon Dioxide 30 mmol/L (22-30); Chloride 103 mmol/L (98-107); Glucose 147 mg/dL (74-99); Lipase 14 U/L (23-300); Non-African American GFR(CKD) 89 (>60 ml/min/1.73 sqM); Sodium 141 mmol/L (137-145); Total Bilirubin 0.5 mg/dL (0.2-1.3); Total Protein 7.2 g/dL (6.3-8.2)
[2023-05-07] MEDS ORDERED: ONDANSETRON 4 MG/2 ML VIAL IVP STA (04:25)
[2023-05-07] MEDS ORDERED: MORPHINE SULFATE 4 MG/ML SYRINGE IVP STA (04:25)
[2023-05-07] MEDS ORDERED: SODIUM CHLORIDE 0.9% 1,000 ML IV STA ×2 (04:25→08:26)
[2023-05-07 04:46] LABS: Glucose,Whole Blood 308 mg/dL (70-110)
[2023-05-07 06:40] LABS: Glucose,Whole Blood 317 mg/dL (70-110)
--- NOTE | 2023-05-07 08:14 | CT ---
EXAMINATION TYPE: CT abdomen pelvis w con DATE OF EXAM: 05/07/2023 COMPARISON: 03/20/2023 INDICATION: Abdomen pain recent colonoscopy DLP: 623.4 mGycm, Automated exposure control for dose reduction was used. CONTRAST: 100 mL of Isovue 300. Study performed without Oral Contrast TECHNIQUE: Axial images were obtained from above the diaphragm to the pubic rami in the axial plane a t 5 mm thick sections. Reconstructed images are reviewed on the computer in the coronal plane. FINDINGS: Limited CT sections are obtained the lung bases. The lung bases are clear. CT ABDOMEN: Liver: A drainage catheter passes through the anterior right lobe liver with the gallbladder fossa re gion. There is an approximately 7 x 4 cm ill-defined area of hypodensity within the anterior left lob e liver. Some smaller peripheral right lobe liver hypodensity in the more inferior aspect is present. Some biliary dilatation extending towards the left lobe liver is present. Some right biliary dilatat ion is evident near the catheter entrance within the right lobe liver. Spleen: Normal Pancreas: There is diffuse homogenous appearance to the pancreas. Borders are indistinct. Adrenal glands: The adrenal glands are normal. Gallbladder: Absent. Stent may be present. Kidneys: No masses are evident. No hydronephrosis is present. No cysts are present. Delayed images were obtained through the kidneys, which remain unremarkable. Aorta: Vascular calcification is within the aorta. Inferior vena cava: Normal. CT PELVIS: Fecal debris is present throughout the colon. Some fecal material also appears to be present within s mall bowel loops. Small bowel loops in the left upper quadrant are prominent and debris-filled. Zone of transition is not clearly identified but appears to be within the left upper quadrant. Anastomosis in the distal sigmoid appears widely patent. Appendix: Not identified. No dilated tubular structure or inflammatory changes are evident. Urinary bladder: Normal. Genitourinary structures: Uterus and ovaries are not identified. Osseous structures: No suspicious lytic or sclerotic lesions. IMPRESSIONS: 1. Fecal debris dilated proximal small bowel loops suspicious for a left upper quadrant obstruction. Abundant fecal debris continues throughout the colon zone of transition is not clearly identified. C onsider small bowel follow-through if additional workup would be of benefit. Report was called and ca se discussed with emergency room physician by Dr. Kwok by telephone at time of interpretation. 2. No free air is identified. 3. Developing biliary dilatation. 4. Hypodensity within the liver is nonspecific. Correlate for underlying infection or mass. Metastati c disease. 5. Poor visualization of the homogenous. Pancreas. Borders are indistinct. Findings are similar to co mparison. 6. A drainage catheter possible bile duct stent right upper quadrant.
[2023-05-07] MEDS ORDERED: NALOXONE 0.4 MG/ML 1 ML VIAL IV PRN (08:31)
[2023-05-07] MEDS ORDERED: MORPHINE SULFATE 4 MG/ML SYRINGE IV PRN (08:31)
[2023-05-07] MEDS ORDERED: ONDANSETRON 4 MG/2 ML VIAL IVP PRN (08:31)
[2023-05-07] MEDS ORDERED: DEXTROSE 50% SYRINGE 50 ML IVP PRN ×2 (09:23)
[2023-05-07 09:32] LABS: Glucose,Whole Blood 286 mg/dL (70-110)
[2023-05-07 12:48] LABS: Glucose,Whole Blood 263 mg/dL (70-110)
[2023-05-07] MEDS: PANTOPRAZOLE 40 MG/10 ML VIAL IVP SCH ×2 (12:52→21:18)
[2023-05-07] MEDS: INSULIN DETEMIR (LEVEMIR) 100 UNIT/ML SYR SQ SCH ×2 (12:55→21:26)
[2023-05-07] MEDS: INSULIN ASPART (NovoLOG) 100 UNIT/ML VIAL SQ SCH ×4 (12:57→21:26)
--- NOTE | 2023-05-07 13:30 | HP ---
HISTORY AND PHYSICAL CHIEF COMPLAINT: Abdominal pain and epigastric pain. HISTORY OF PRESENT ILLNESS: This 72-year-old with a past history of multiple medical problems including Whipple procedure several years ago, had a colonoscopy in the outpatient setting. The patient is complaining of epigastric pain and CT scan showed suspicious bowel obstruction. The patient admitted for evaluation and treatment. There is no history of fever, rigors, chills at this time. PAST MEDICAL HISTORY: Reviewed include Whipple procedure. The rest of the history and rest of chart are also reviewed. HOME MEDICATIONS: 1. Cholestyramine. 2. Insulin. Rest of the dose and rest of medications reviewed. ALLERGIES: Reviewed include Keflex. Rest of allergies reviewed. FAMILY HISTORY: History of cancer in the family. SOCIAL HISTORY: Previous smoker. REVIEW OF SYSTEMS: Fourteen-point review is negative as mentioned earlier. PHYSICAL EXAMINATION: VITAL SIGNS: Pulse 54, blood pressure ntd respirations 18. HEENT: Conjunctivae normal. NECK: No jugular venous distention. RESPIRATIONS: Breath sounds diminished at the bases. ABDOMEN: Soft, mild diffuse discomfort. No guarding. No rigidity. LEGS: No edema. No swelling. NERVOUS SYSTEM: No focal deficit. SKIN: No ulcers or rashes. JOINTS: No active deforming arthropathy. LABORATORY DATA: Reviewed. ASSESSMENT: 1. Abdominal pain, rule out small-bowel obstruction. 2. History of recent colonoscopy. 3. Diabetes mellitus, type 2. 4. History of Whipple procedure. 5. Multiple medical issues. RECOMMENDATIONS AND DISCUSSION: I recommend to continue current medications, continue with the monitoring, symptomatic treatment. Surgical evaluation. Otherwise, DVT prophylaxis. Resume the home medication. Monitor blood sugars closely. Diet per surgery. Guarded prognosis. Further recommendations to follow. MMODL / IJN: [id number] / MTDD
[2023-05-07] MEDS ORDERED: IOPAMIDOL CONTRAST (ORAL USE) VIAL PO PRN (13:33)
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
--- NOTE | 2023-05-07 16:30 | CT ---
EXAMINATION TYPE: CT abdomen pelvis wo con DATE OF EXAM: 05/07/2023 COMPARISON: 05/07/2023 HISTORY: 72-year-old female with abdominal pain. CT W/ IV contrast done [address] DLP: 407.2 mGycm. Automated exposure control for dose reduction was used. TECHNIQUE: Contiguous axial scanning of the abdomen and pelvis without IV contrast. Coronal and sagit shahnaz reconstructions performed. FINDINGS: Heart upper limits of normal in size. Strandy atelectasis or scarring in the lower lungs. No pleural effusion. Similar heterogeneous appearance to the liver within external biliary drain. Suspect additional stent possibly across a hepaticojejunostomy. Noncontrast appearance of the adrenal glands, kidneys, spleen with hilar splenule and pancreas show n o gross abnormality. Mild generalized anasarca unchanged. There is moderate stool burden. Staple line rectosigmoid junction from prior resection and re-anastom osis. Mild diffuse mesenteric edema is similar. The extensive fecalization of left upper quadrant bowel content seen earlier today has improved. Ther e is now oral contrast material present. Loops in the left upper quadrant measure up to 3.5 cm. Loops in the right mid abdomen measuring up to 4.4 cm. Oral contrast material has extended down into the pelvis. Some of possible small bowel wall thickenin g in the lower abdomen and pelvis probably due to incomplete distention. Correlate to exclude symptom s of enteritis. Bladder is distended. Uterus surgically absent. No abnormal fluid collection in the pelvis or obvious pelvic lymphadenopathy. Cm and the left upper quadrant and 4.4 cm and the right paramedian abdomen. IMPRESSION: 1. Ongoing follow-up recommended. There appears to be interval improvement in the previous fecalizati on of left upper quadrant small bowel loops. The overall number of dilated small bowel loops have als o improved. However, the greatest degree of dilatation up to 4.4 cm is similar. Again, unable to iden tify a discrete transition point. 2. There may be some thickened small bowel loops in the lower abdomen and pelvis that could reflect e nteritis. 3. Similar heterogeneous appearance to the liver with external biliary drain and suspect an additiona l biliary stent. 4. Mild generalized anasarca change persists. 5. Moderate stool burden.
[2023-05-07 17:28] LABS: Glucose,Whole Blood 131 mg/dL (70-110)
[2023-05-07 18:29] LABS: Glucose,Whole Blood 82 mg/dL (70-110)
[2023-05-07] MEDS: CHOLESTYRAMINE (WITH SUGAR) 4 GM PACKET PO SCH (19:12)
[2023-05-07 20:11] LABS: Glucose,Whole Blood 50 mg/dL (70-110)
[2023-05-07 20:40] LABS: Glucose,Whole Blood 146 mg/dL (70-110)
[2023-05-07] MEDS: HEPARIN SODIUM,PORCINE/PF 5,000 UNIT/0.5 ML SYRINGE SQ SCH (21:18)
[2023-05-08 00:14] LABS: Glucose,Whole Blood 86 mg/dL (70-110)
[2023-05-08 02:54] LABS: Glucose,Whole Blood 93 mg/dL (70-110)
[2023-05-08 05:52] LABS: Glucose,Whole Blood 134 mg/dL (70-110)
[2023-05-08] MEDS: INSULIN ASPART (NovoLOG) 100 UNIT/ML VIAL SQ SCH ×7 (05:59→22:20)
[2023-05-08 09:22] LABS: Basophils # (A) 0.01 X 10*3/uL (0.00-0.10); Basophils % (A) 0.4 %; Eosinophils # (A) 0.01 X 10*3/uL (0.04-0.35); Eosinophils % (A) 0.4 %; HCT 29.7 % (37.2-46.3); HGB 9.1 d/dL (12.0-15.0); Lymphocytes # (A) 1.06 X 10*3/uL (0.90-5.00); Lymphocytes % (A) 46.1 %; MCH 29.8 pg (27.0-32.0); MCHC 30.6 d/dL (32.0-37.0); MCV 97.4 FL (80.0-97.0); Mean Platelet Volume 10.8 FL (9.5-12.2); Monocytes # (A) 0.19 X 10*3/uL (0.20-1.00); Monocytes % (A) 8.3 %; NRBC Per 100 WBC 0 X 10*3/uL (0.00-0.01); Neutrophils # (A) 1.02 X 10*3/uL (1.80-7.70); Neutrophils % (A) 44.4 %; Platelet Count 166 X 10*3/uL (140-440); RBC 3.05 X 10*6/uL (4.10-5.20); RDW 15.5 % (11.5-14.5)
[2023-05-08 09:37] LABS: Blood Urea Nitrogen 12.3 mg/dL (9.0-27.0); Chloride 109 mmol/L (96-109); Glucose 113 mg/dL (70-110); Potassium 3.9 mmol/L (3.5-5.5); Sodium 146 mmol/L (135-145)
[2023-05-08 09:38] LABS: Calcium 8.7 mg/dL (8.7-10.3); Carbon Dioxide 27.5 mmol/L (21.6-31.8)
[2023-05-08] MEDS: HEPARIN SODIUM,PORCINE/PF 5,000 UNIT/0.5 ML SYRINGE SQ SCH ×2 (09:42→21:45)
[2023-05-08] MEDS: CHOLESTYRAMINE (WITH SUGAR) 4 GM PACKET PO SCH (09:46)
[2023-05-08] MEDS: PANTOPRAZOLE 40 MG/10 ML VIAL IVP SCH ×2 (09:58→21:45)
[2023-05-08 11:28] LABS: Glucose,Whole Blood 127 mg/dL (70-110)
[2023-05-08] MEDS ORDERED: ACETAMINOPHEN TAB 325 MG TAB PO PRN (13:30)
[2023-05-08] MEDS ORDERED: HYDROcodone/APAP 5-325MG 1 EACH TAB PO PRN (13:30)
--- NOTE | 2023-05-08 13:48 | P.PN ---
Subjective Progress Note Date: 05/08/23 This is a 72-year-old female who was recently admitted with abdominal pain and had colonoscopy in the outpatient setting although developed significant left- sided abdominal along with epigastric discomfort. Patient did have CT abdomen suggestive of proximal small bowel obstruction. Patient being followed by general surgery with no plan for intervention at this time recommending conservative management. Patient with follow-up CT showing some improvement will be initiated on clear liquids to monitor for tolerance. Recommend follow- up labs and increased activity as tolerated. Patient is currently afebrile with no reports of chest pain or shortness of breath. Patient has been nothing by mouth. Review of systems: Constitutional: No reports of fatigue, fever, or chills Cardiovascular: No reports of chest pain or palpitations Respiratory: No reports of shortness of breath or cough GI: No reports of nausea, no reports of vomiting, no bowel movements. Reports left upper and lower quadrant tenderness : No reports of dysuria or retention Neurovascular: No reports of generalized weakness All medications have been reviewed PHYSICAL EXAMINATION: GENERAL: The patient is alert and oriented x4, thin built, elderly appearing HEENT: Pupils are round and equally reacting to light. EOMI. no scleral icterus. No conjunctival pallor. Normocephalic, atraumatic. No pharyngeal erythema. No t hyromegaly. CARDIOVASCULAR: S1 and S2 muffled PULMONARY: diminished breath sounds bilaterally with no wheezing or rhonchi noted. ABDOMEN: soft. tenderness noted on the left upper and lower quadrant on palpation. mildly-distended, normoactive bowel sounds. No palpable organomegaly. MUSCULOSKELETAL: No joint swelling or deformity. EXTREMITIES: No cyanosis, clubbing, or pedal edema. NEUROLOGICAL: Gross neurological examination did not reveal any focal deficits. SKIN: No rashes. Assessment: Abdominal pain, rule out small bowel obstruction History of recent colonoscopy Diabetes mellitus, type II History of Whipple procedure Gastroesophageal reflux disease History of colon cancer along with pancreatic cancer Former smoker GI prophylaxis DVT prophylaxis no code Plan: Recommend to continue with current medications and management with Gen. surgery following. Patient has been nothing by mouth report some tenderness in the left quadrant and being started on clear liquids to monitor for tolerance Repeat CT done showing some mild improvement in the left upper quadrant small bowel loops and the overall number of dilated small bowel loops have improved however the greatest dilatation of 4.4 cm is similar along with some thickened small bowel loops in mild general anasarca persists. There is moderate stool burden Recommend patient continue with IV Protonix and Zofran as needed Continue pain management and will add oral as well Recommend follow-up labs in the a.m. We'll discuss further with surgery about possible discharge planning in the next 24-48 hours The impression and plan of care has been dictated by Jerri Phan, nurse practitioner as directed. Dr. South WILDER I have performed a history and examination and MDM of this patient, discussed the same with the dictator, and agree with the dictator's assessment and plan as written ,documented as a scribe. Based on total visit time, I have performed more than 50% of the visit. Any additional findings or plans will be noted. Objective - Vital Signs Vital signs: Vital Signs Temp 98.6 F 05/08/23 08:03 Pulse 51 L 05/08/23 08:03 Resp 13 05/08/23 08:03 BP 164/77 05/08/23 08:03 Pulse Ox 93 L 05/08/23 08:03 FiO2 Intake & Output 05/07/23 05/08/23 05/08/23 18:59 06:59 18:59 Intake Total 180 1080 Balance 180 1080 Weight 54.431 kg Intake: Intake, IV Titration 180 1080 Amount Sodium Chloride 0.9% 1, 180 1080 000 ml @ 90 mls/hr IV . Q11H7M STA Rx#:[id number] Other: Voiding Method Toilet # Voids 3 - Labs CBC & Chem 7: 05/08/23 05:24 05/08/23 05:24 Labs: Abnormal Lab Results - Last 24 Hours (Table) 05/07/23 05/07/23 05/07/23 Range/Units 17:27 20:09 20:39 WBC (4.50-10.00) X 10*3/uL RBC (4.10-5.20) X 10*6/uL Hgb (12.0-15.0) d/dL Hct (37.2-46.3) % MCV (80.0-97.0) FL MCHC (32.0-37.0) d/dL RDW (11.5-14.5) % Neutrophils # (1.80-7.70) X 10*3/uL Monocytes # (0.20-1.00) X 10*3/uL Eosinophils # (0.04-0.35) X 10*3/uL Sodium (135-145) mmol/L Creatinine (0.6-1.5) mg/dL BUN/Creatinine Ratio (12.00-20.00) Ratio Glucose (70-110) mg/dL POC Glucose (mg/dL) 131 H 50 L 146 H (70-110) mg/dL Hemoglobin A1c (<=6.0) % 05/08/23 05/08/23 05/08/23 Range/Units 05:24 05:24 05:24 WBC 2.30 L (4.50-10.00) X 10*3/uL RBC 3.05 L (4.10-5.20) X 10*6/uL Hgb 9.1 L (12.0-15.0) d/dL Hct 29.7 L (37.2-46.3) % MCV 97.4 H (80.0-97.0) FL MCHC 30.6 L (32.0-37.0) d/dL RDW 15.5 H (11.5-14.5) % Neutrophils # 1.02 L (1.80-7.70) X 10*3/uL Monocytes # 0.19 L (0.20-1.00) X 10*3/uL Eosinophils # 0.01 L (0.04-0.35) X 10*3/uL Sodium 146 H (135-145) mmol/L Creatinine 0.5 L (0.6-1.5) mg/dL BUN/Creatinine Ratio 24.60 H (12.00-20.00) Ratio Glucose 113 H (70-110) mg/dL POC Glucose (mg/dL) (70-110) mg/dL Hemoglobin A1c 7.1 H (<=6.0) % 05/08/23 05/08/23 Range/Units 05:50 11:26 WBC (4.50-10.00) X 10*3/uL RBC (4.10-5.20) X 10*6/uL Hgb (12.0-15.0) d/dL Hct (37.2-46.3) % MCV (80.0-97.0) FL MCHC (32.0-37.0) d/dL RDW (11.5-14.5) % Neutrophils # (1.80-7.70) X 10*3/uL Monocytes # (0.20-1.00) X 10*3/uL Eosinophils # (0.04-0.35) X 10*3/uL Sodium (135-145) mmol/L Creatinine (0.6-1.5) mg/dL BUN/Creatinine Ratio (12.00-20.00) Ratio Glucose (70-110) mg/dL POC Glucose (mg/dL) 134 H 127 H (70-110) mg/dL Hemoglobin A1c (<=6.0) %
--- NOTE | 2023-05-08 13:58 | P.PN ---
Subjective Progress Note Date: 05/08/23 CHIEF COMPLAINT: Abdominal pain HISTORY OF PRESENT ILLNESS: Patient reports that she is feeling better today. She did have a bowel movement and small amount of flatus. Denies any nausea or vomiting. The pain and left upper quadrant is decreasing. Computed tomography scan with oral contrast report states that there appears to be interval improvement in the previous fecal a station of the left upper quadrant small bowel loops. The overall number of dilated small bowel loops have also improved. However the greatest degree of dilatation up to 4.4 cm is similar. Again unable to identify discrete transition point. There may be some thickened small bowel loops in the lower abdomen and pelvis that could reflect enteritis. Small heterogenous appearance to the liver with external biliary drain and suspect an additional biliary stent. Mild generalized anasarca. Moderate stool present. Afebrile. WBC 2.30 Hgb 9.1 platelets 166 PHYSICAL EXAM: VITAL SIGNS: Reviewed. GENERAL: Well-developed in no acute distress. HEENT: No sclera icterus. Extraocular movements grossly intact. Moist buccal mucosa. Head is atraumatic, normocephalic. ABDOMEN: Soft. Nondistended. Nontender. Incisional hernia left side abdomen NEUROLOGIC: Alert and oriented. Cranial nerves II through XII grossly intact. ASSESSMENT: 1. Abdominal pain 2. Small bowel obstruction resolving 3. Multiple abdominal surgeries PLAN: -Advance diet to clear liquids -Continue to monitor -Encourage patient to ambulate -Anticipate possible discharge tomorrow Physician Locomotive Inspector note has been reviewed by physician. Signing provider agrees with the documented findings, assessment, and plan of care. Objective - Vital Signs Vital signs: Vital Signs Temp 98.6 F 05/08/23 08:03 Pulse 51 L 05/08/23 08:03 Resp 13 05/08/23 08:03 BP 164/77 05/08/23 08:03 Pulse Ox 93 L 05/08/23 08:03 FiO2 Intake & Output 05/07/23 05/08/23 05/08/23 18:59 06:59 18:59 Intake Total 180 1080 Balance 180 1080 Weight 54.431 kg Intake: Intake, IV Titration 180 1080 Amount Sodium Chloride 0.9% 1, 180 1080 000 ml @ 90 mls/hr IV . Q11H7M STA Rx#:[id number] Other: Voiding Method Toilet # Voids 3 - Labs CBC & Chem 7: 05/08/23 05:24 07 05:24 Labs: Abnormal Lab Results - Last 24 Hours (Table) 05/07/23 05/07/23 05/07/23 Range/Units 17:27 20:09 20:39 WBC (4.50-10.00) X 10*3/uL RBC (4.10-5.20) X 10*6/uL Hgb (12.0-15.0) d/dL Hct (37.2-46.3) % MCV (80.0-97.0) FL MCHC (32.0-37.0) d/dL RDW (11.5-14.5) % Neutrophils # (1.80-7.70) X 10*3/uL Monocytes # (0.20-1.00) X 10*3/uL Eosinophils # (0.04-0.35) X 10*3/uL Sodium (135-145) mmol/L Creatinine (0.6-1.5) mg/dL BUN/Creatinine Ratio (12.00-20.00) Ratio Glucose (70-110) mg/dL POC Glucose (mg/dL) 131 H 50 L 146 H (70-110) mg/dL Hemoglobin A1c (<=6.0) % 05/08/23 05/08/23 05/08/23 Range/Units 05:24 05:24 05:24 WBC 2.30 L (4.50-10.00) X 10*3/uL RBC 3.05 L (4.10-5.20) X 10*6/uL Hgb 9.1 L (12.0-15.0) d/dL Hct 29.7 L (37.2-46.3) % MCV 97.4 H (80.0-97.0) FL MCHC 30.6 L (32.0-37.0) d/dL RDW 15.5 H (11.5-14.5) % Neutrophils # 1.02 L (1.80-7.70) X 10*3/uL Monocytes # 0.19 L (0.20-1.00) X 10*3/uL Eosinophils # 0.01 L (0.04-0.35) X 10*3/uL Sodium 146 H (135-145) mmol/L Creatinine 0.5 L (0.6-1.5) mg/dL BUN/Creatinine Ratio 24.60 H (12.00-20.00) Ratio Glucose 113 H (70-110) mg/dL POC Glucose (mg/dL) (70-110) mg/dL Hemoglobin A1c 7.1 H (<=6.0) % 05/08/23 05/08/23 Range/Units 05:50 11:26 WBC (4.50-10.00) X 10*3/uL RBC (4.10-5.20) X 10*6/uL Hgb (12.0-15.0) d/dL Hct (37.2-46.3) % MCV (80.0-97.0) FL MCHC (32.0-37.0) d/dL RDW (11.5-14.5) % Neutrophils # (1.80-7.70) X 10*3/uL Monocytes # (0.20-1.00) X 10*3/uL Eosinophils # (0.04-0.35) X 10*3/uL Sodium (135-145) mmol/L Creatinine (0.6-1.5) mg/dL BUN/Creatinine Ratio (12.00-20.00) Ratio Glucose (70-110) mg/dL POC Glucose (mg/dL) 134 H 127 H (70-110) mg/dL Hemoglobin A1c (<=6.0) %
[2023-05-08 17:37] LABS: Glucose,Whole Blood 245 mg/dL (70-110)
[2023-05-08 20:34] LABS: Glucose,Whole Blood 100 mg/dL (70-110)
[2023-05-08] MEDS: INSULIN DETEMIR (LEVEMIR) 100 UNIT/ML SYR SQ SCH (21:44)
[2023-05-09 06:07] LABS: Glucose,Whole Blood 50 mg/dL (70-110)
[2023-05-09 06:40] LABS: Glucose,Whole Blood 94 mg/dL (70-110)
[2023-05-09] MEDS: INSULIN ASPART (NovoLOG) 100 UNIT/ML VIAL SQ SCH ×4 (06:41→12:08)
[2023-05-09 07:57] VITALS: BP 143/62; PULSE 46; RESP 16; TEMP 97.7
[2023-05-09] MEDS: PANTOPRAZOLE 40 MG/10 ML VIAL IVP SCH (08:39)
[2023-05-09] MEDS: HEPARIN SODIUM,PORCINE/PF 5,000 UNIT/0.5 ML SYRINGE SQ SCH (09:34)
[2023-05-09 10:31] LABS: Basophils % (A) 0 %; Eosinophils % (A) 1 %; HGB 10.9 gm/dL (11.4-16.0); Hypochromasia Moderate; Lymphocytes # (A) 0.5 k/uL (1.0-4.8); Lymphocytes % (A) 25 %; MCH 31.6 pg (25.0-35.0); MCHC 32.2 g/dL (31.0-37.0); MCV 98.3 fL (80.0-100.0); Mean Platelet Volume 8.1; Monocytes # (A) 0.1 k/uL (0-1.0); Monocytes % (A) 6 %; Neutrophils # (A) 1.3 k/uL (1.3-7.7); Neutrophils % (A) 66 %; Platelet Count 147 k/uL (150-450); RBC 3.46 m/uL (3.80-5.40); RDW 14.6 % (11.5-15.5)
[2023-05-09 10:58] LABS: African American GFR (CKD) >90 (>60 ml/min/1.73 sqM); Anion Gap 7 mmol/L; Blood Urea Nitrogen 11 mg/dL (7-17); Calcium 8.7 mg/dL (8.4-10.2); Carbon Dioxide 27 mmol/L (22-30); Chloride 105 mmol/L (98-107); Glucose 226 mg/dL (74-99); Magnesium 1.8 mg/dL (1.6-2.3); Non-African American GFR(CKD) >90 (>60 ml/min/1.73 sqM); Potassium 3.9 mmol/L (3.5-5.1); Sodium 139 mmol/L (137-145)
[2023-05-09 11:55] LABS: Glucose,Whole Blood 236 mg/dL (70-110)
--- NOTE | 2023-05-09 12:35 | P.PN ---
Subjective Progress Note Date: 05/09/23 CHIEF COMPLAINT: Abdominal pain HISTORY OF PRESENT ILLNESS: Patient denies any abdominal pain. She is having bowel movements and flatus. She tolerated clear liquid diet. She denies any nausea or vomiting. Afebrile. WBC 2.0 hgb 10.9 platelets 147 sodium was 139 potassium is 3.9 creatinine 0.37 magnesium 1.8 PHYSICAL EXAM: VITAL SIGNS: Reviewed. GENERAL: Well-developed in no acute distress. HEENT: No sclera icterus. Extraocular movements grossly intact. Moist buccal mucosa. Head is atraumatic, normocephalic. ABDOMEN: Soft. Nondistended. Nontender. Incisional hernia left side abdomen NEUROLOGIC: Alert and oriented. Cranial nerves II through XII grossly intact. ASSESSMENT: 1. Abdominal pain resolved 2. Small bowel obstruction resolved 3. Multiple abdominal surgeries PLAN: -Advance diet to full liquids -Patient can be discharged from surgical standpoint if tolerating diet -Encourage patient to ambulate -Encourage patient to drink plenty of water Physician Weatherization Specialist note has been reviewed by physician. Signing provider agrees with the documented findings, assessment, and plan of care. Objective - Vital Signs Vital signs: Vital Signs Temp 97.7 F 05/09/23 07:57 Pulse 46 L 05/09/23 07:57 Resp 16 05/09/23 07:57 BP 143/62 05/09/23 07:57 Pulse Ox 98 05/09/23 07:57 FiO2 Intake & Output 05/08/23 05/09/23 05/09/23 18:59 06:59 18:59 Intake Total 1680 Balance 1680 Intake: Intake, IV Titration 1080 Amount Sodium Chloride 0.9% 1, 1080 000 ml @ 90 mls/hr IV . Q11H7M STA Rx#:[id number] Oral 600 Other: # Voids 1 2 - Labs CBC & Chem 7: 05/09/23 10:12 05/09/23 10:12 Labs: Abnormal Lab Results - Last 24 Hours (Table) 05/08/23 05/09/23 05/09/23 Range/Units 17:36 06:05 10:12 WBC 2.0 L (3.8-10.6) k/uL RBC 3.46 L (3.80-5.40) m/uL Hgb 10.9 L (11.4-16.0) gm/dL Plt Count 147 L (150-450) k/uL Lymphocytes # 0.5 L (1.0-4.8) k/uL Creatinine (0.52-1.04) mg/dL Glucose (74-99) mg/dL POC Glucose (mg/dL) 245 H 50 L (70-110) mg/dL 05/09/23 05/09/23 Range/Units 10:12 11:53 WBC (3.8-10.6) k/uL RBC (3.80-5.40) m/uL Hgb (11.4-16.0) gm/dL Plt Count (150-450) k/uL Lymphocytes # (1.0-4.8) k/uL Creatinine 0.37 L (0.52-1.04) mg/dL Glucose 226 H (74-99) mg/dL POC Glucose (mg/dL) 236 H (70-110) mg/dL
--- NOTE | 2023-05-10 16:20 | P.DS ---
Providers Date of admission: 05/07/23 08:32 Expected date of discharge: 05/09/23 Attending physician: Claudia Dia Consults: 05/07/23 08:31 Consult Physician Routine Consulting Provider: Abelardo Reddy Consult Reason/Comments: sbo Do you want consulting provider notified?: Already Contacted Primary care physician: Matt Linares [facility] Course: Final diagnosis Abdominal pain, rule out small bowel obstruction History of recent colonoscopy Diabetes mellitus, type II History of Whipple procedure Gastroesophageal reflux disease History of colon cancer along with pancreatic cancer Former smoker GI prophylaxis DVT prophylaxis no code Discharge disposition Patient is being discharged in a stable condition with guarded prognosis to home. Patient will follow-up with Dr. Linares in the outpatient setting upon discharge. Total time taken is greater than 35 minutes. Hospital course This is a 72-year-old female who was recently admitted with abdominal pain with concerns of bowel obstruction in the proximal small bowel noted on CT. Patient did have recent colonoscopy in the outpatient setting and has not received the results as this was one day prior to admission. Patient was seen and evaluated by general surgery committing conservative management and close monitoring. Patient was on bowel rest showing some improvements and will be given low-dose lactulose daily as she reports she has also been hospitalized twice now for 2 bowel obstructions. Patient does have history of colon cancer with pancreatic cancer in the past. Patient has been cleared by consultation. Please refer to consultation note for further HPI. Patient has been instructed to continue on full liquid diet over the next few days and slowly advance as tolerated and recommending outpatient follow-up with surgery in one week. Patient will continue on lactulose daily as well. Patient instructed to follow-up with primary care provider on discharge. Currently no reports of chest pain, shortness of breath, or palpitations. Patient is afebrile. No reports of nausea or vomiting and patient is tolerating diet. Patient will be discharged home today. Guarded prognosis. Physical exam: Gen: This is a 72-year-old female who is awake, alert and oriented 3, well- developed, thin built, elderly appearing HEENT: Head is atraumatic, normocephalic. Pupils equal, round. Sclerae is anicteric. NECK: Supple. No JVD. No lymphadenopathy. No thyromegaly. LUNGS: Clear to auscultation. No wheezes or rhonchi. No intercostal retractions. HEART: Regular rate and rhythm. No murmur. ABDOMEN: Soft. Bowel sounds are present. No masses. Mild tenderness noted in the upper left quadrant. EXTREMITIES: No pedal edema. No calf tenderness. NEUROLOGICAL: Patient is awake, alert and oriented x3. Cranial nerves 2 through 12 are grossly intact. Please refer to medication reconciliation sheet for a list of medications. The impression and plan of care has been dictated by Jerri Phan, Nurse Practitioner as directed. Dr. South MD I have performed a history and examination and MDM of this patient, discussed the same with the dictator, and agree with the dictator's assessment and plan as written ,documented as a scribe. Based on total visit time, I have performed more than 50% of the visit. Patient Condition at Discharge: Fair Plan - Discharge Summary Discharge Rx Participant: No New Discharge Prescriptions: New Acetaminophen Tab [Tylenol] 650 mg PO Q6HR PRN tab PRN Reason: Fever and/ or Mild Pain Lactulose 20 gm PO DAILY #240 ml Continue Insulin Glargine,Hum.rec.anlog [Lantus Solostar Pen] 9 units SQ HS Cholestyramine (with Sugar) [Questran Packet] 4 gm PO DIRECTED Insulin Aspart [NovoLOG Flexpen] 5 units SQ AC-BID@0700,1200 Insulin Aspart [NovoLOG Flexpen] 7 units SQ AC-SUPPER Insulin Aspart [NovoLOG Flexpen] See Protocol [facility] Discharge Medication List Insulin Glargine,Hum.rec.anlog [Lantus Solostar Pen] 9 units SQ HS 11/18/22 [History] Cholestyramine (with Sugar) [Questran Packet] 4 gm PO DIRECTED 05/07/23 [History] Insulin Aspart [NovoLOG Flexpen] 5 units SQ AC-BID@0700,1200 05/07/23 [History] Insulin Aspart [NovoLOG Flexpen] 7 units SQ AC-SUPPER 05/07/23 [History] Insulin Aspart [NovoLOG Flexpen] See Protocol SQ [facility] 05/07/23 [History] Acetaminophen Tab [Tylenol] 650 mg PO Q6HR PRN tab 05/09/23 [Rx] Lactulose 20 gm PO DAILY #240 ml 05/09/23 [Rx] Follow up Appointment(s)/Referral(s): VijayMatt zamarripa DO [Primary Care Provider] - 05/17/23 11:00 am Abelardo Reddy MD [STAFF PHYSICIAN] - 1 Week (Office closed at time of dischar ge. Please call for follow-up appointment.) Patient Instructions/Handouts: Full Liquid Diet (DC), What to Do if Your Blood Sugar is Low (DC) Activity/Diet/Wound Care/Special Instructions: Activity Limited until follow-up Follow-up with primary care provider on discharge Follow-up with surgery in one week Continue full liquid diet Recommend bowel regimen daily Discharge Disposition: HOME SELF-CARE
== END 2023-05-09 14:55 | disposition home or self-care (01) | DRG 390 ==
LOC: EC 20:55 → 4SSUR 05-07 08:32
PROVIDERS: ADMIT Hospitalist; ATTEND Hospitalist
DX: K56.609 Unspecified intestinal obstruction, unspecified as to partial versus complete obstruction (principal); D64.9 Anemia, unspecified; E11.9 Type 2 diabetes mellitus without complications; G89.29 Other chronic pain; H91.90 Unspecified hearing loss, unspecified ear; K21.9 Gastro-esophageal reflux disease without esophagitis; K43.2 Incisional hernia without obstruction or gangrene; K57.90 Diverticulosis of intestine, part unspecified, without perforation or abscess without bleeding; K63.5 Polyp of colon; Z79.4 Long term (current) use of insulin; Z80.0 Family history of malignant neoplasm of digestive organs; Z80.7 Family history of other malignant neoplasms of lymphoid, hematopoietic and related tissues; Z85.038 Personal history of other malignant neoplasm of large intestine; Z85.07 Personal history of malignant neoplasm of pancreas; Z85.89 Personal history of malignant neoplasm of other organs and systems; Z87.891 Personal history of nicotine dependence; Z90.411 Acquired partial absence of pancreas; Z90.710 Acquired absence of both cervix and uterus; Z88.5 Allergy status to narcotic agent; Z88.1 Allergy status to other antibiotic agents
CPT/HCPCS: 36415; 74176; 74177; 80048; 80053; 82150; 83036; 83690; 83735; 85025; 93005; 96361; 96372; 96374; 96375; 96376; 99285

== ENCOUNTER → 2023-07-02 | Outpatient (CLI) | payer MEDICARE, BC ==
[2023-07-02 13:53] LABS: ALT 23 U/L (4-34); AST 38 U/L (14-36); African American GFR (CKD) >90 (>60 ml/min/1.73 sqM); Albumin 3.8 g/dL (3.5-5.0); Albumin/Globulin Ratio 1.4; Alkaline Phosphatase 152 U/L (38-126); Anion Gap 3 mmol/L; Blood Urea Nitrogen 14 mg/dL (7-17); Calcium 8.8 mg/dL (8.4-10.2); Carbon Dioxide 30 mmol/L (22-30); Chloride 107 mmol/L (98-107); Globulin 2.8 g/dL; Glucose 107 mg/dL (74-99); Non-African American GFR(CKD) >90 (>60 ml/min/1.73 sqM); Potassium 5.2 mmol/L (3.5-5.1); Sodium 140 mmol/L (137-145); Total Bilirubin 0.6 mg/dL (0.2-1.3); Total Protein 6.6 g/dL (6.3-8.2)
--- NOTE | 2023-07-03 22:10 | CT ---
EXAMINATION TYPE: CT ChestAbdPelvis w con CT DLP: 588.30 mGycm, Automated exposure control for dose reduction was used. DATE OF EXAM: 07/02/2023 3:42 PM COMPARISON: Multiple priors dating back to 2019. Most recent from 05/07/2023 CLINICAL INDICATION:Female, 72 years old with history of C25.9 MALIGNANT NEOPLASM OF PANCREAS; PHH, h x of colon and pancreatic ca. hx of bowel obstrictions and hernias. Technique: Multiple axial images of the chest, abdomen, and pelvis were obtained. Two-dimensional cor onal and sagittal reconstructions were obtained. Contrast used:100 mL of Isovue 300 with IV Contrast, Oral contrast used: with Oral Contrast Findings: CHEST: LUNGS/ PLEURA: No focal consolidation, pneumothorax or pleural effusion. AIRWAY: Patent and unremarkable. HEART: The heart is mildly enlarged for size. MEDIASTINUM: No gross evidence of adenopathy. VASCULATURE: No aortic aneurysm. No evidence for filling defect to suggest pulmonary embolus. MUSCULOSKELETAL: Moderate disc degeneration changes are present throughout the thoracolumbar spine. SOFT TISSUES/LYMPH NODES: Unremarkable. LOWER NECK: Heterogenous thyroid gland with multiple nodules bilaterally. ABDOMEN: LIVER/GALLBLADDER AND BILE DUCTS: No obvious pneumobilia on today's exam. There remains intrahepatic biliary dilation. Pigtail catheter within the biliary system transverses the liver with distal tip te rminating within the stomach to be the duodenum. No significantly changed from prior. There is geogra phic areas of low attenuation better appreciated on post contrast imaging with tubular fingerlike ext ensions likely representing dilated ducts. Suspected cholecystectomy clips are present. PANCREAS: Posterior surgical changes of the pancreatic head with similar appearance to the morphology of the pancreas. There is low-density area proximal pancreas head neck and body. Measuring 7.3 x 2.3 cm appears to surround the clinic artery series 4 image 56 SPLEEN: Nonenlarged ADRENAL GLANDS: Unremarkable. KIDNEYS AND URETERS: No evidence of hydronephrosis or renal calculus. The ureters are unremarkable. PELVIS BLADDER: Unremarkable REPRODUCTIVE: Unremarkable. ABDOMEN & PELVIS STOMACH AND BOWEL: No evidence of bowel obstruction. Postsurgical changes to the colon including the rectum. There is a large stool burden throughout the colon. PERITONEUM: No evidence of pneumoperitoneum or free fluid. VASCULATURE: No evidence of aortic aneurysm. Scattered atherosclerosis of the arterial vasculature. F ocal narrowing of the left renal vein as it crosses the aorta and superior mesenteric artery. Focal n arrowing of mary portal vein noted with high-grade stenosis. MUSCULOSKELETAL: No acute osseous abnormalities. Moderate disc degeneration changes are present throu ghout the thoracolumbar spine. LYMPH NODES: No gross evidence for lymphadenopathy. SOFT TISSUE/ABDOMINAL WALL: Unremarkable IMPRESSION: 1. Similar postsurgical changes with similar morphology to liver and intrahepatic biliary system. Th e biliary drain is in similar position. No evidence of new lymphadenopathy or mass. 2. Masslike appearance to the remaining pancreatic tissue remains similar immediate prior and appear s to surround multiple vessels in the upper abdomen including the splenic artery. Consideration for P ET/CT may be of benefit 4 metabolic activity of this area. 3. No evidence for metastatic disease within the thorax..
== END | disposition home or self-care (01) ==
LOC: RADCTMAIN 12:59
PROVIDERS: ATTEND Internal Medicine
DX: C25.9 Malignant neoplasm of pancreas, unspecified (principal); C18.7 Malignant neoplasm of sigmoid colon; K86.89 Other specified diseases of pancreas
CPT/HCPCS: 80053; 71260; 74177; 36415; Q9967

== ENCOUNTER → 2023-09-03 | Outpatient (CLI) | payer MEDICARE, BC ==
[2023-09-03 15:13] LABS: Basophils % (A) 1 %; Eosinophils % (A) 1 %; HCT 34.9 % (34.0-46.0); HGB 11.2 gm/dL (11.4-16.0); Hypochromasia Slight; Lymphocytes # (A) 0.9 k/uL (1.0-4.8); Lymphocytes % (A) 32 %; MCH 30.6 pg (25.0-35.0); MCHC 32.2 g/dL (31.0-37.0); MCV 94.9 fL (80.0-100.0); Mean Platelet Volume 7.8; Monocytes # (A) 0.2 k/uL (0-1.0); Monocytes % (A) 6 %; Neutrophils # (A) 1.7 k/uL (1.3-7.7); Neutrophils % (A) 58 %; Platelet Count 255 k/uL (150-450); RBC 3.67 m/uL (3.80-5.40); RDW 14.3 % (11.5-15.5); WBC 2.9 k/uL (3.8-10.6)
[2023-09-03 15:26] LABS: ALT 27 U/L (4-34); AST 36 U/L (14-36); African American GFR (CKD) >90 (>60 ml/min/1.73 sqM); Albumin 3.9 g/dL (3.5-5.0); Albumin/Globulin Ratio 1.3; Alkaline Phosphatase 176 U/L (38-126); Anion Gap 7 mmol/L; Blood Urea Nitrogen 11 mg/dL (7-17); Calcium 9.1 mg/dL (8.4-10.2); Carbon Dioxide 28 mmol/L (22-30); Chloride 105 mmol/L (98-107); Globulin 2.9 g/dL; Glucose 145 mg/dL (74-99); Non-African American GFR(CKD) >90 (>60 ml/min/1.73 sqM); Potassium 5.1 mmol/L (3.5-5.1); Sodium 140 mmol/L (137-145); Total Bilirubin 0.4 mg/dL (0.2-1.3); Total Protein 6.8 g/dL (6.3-8.2)
== END | disposition home or self-care (01) ==
LOC: LABWHC1 14:30
PROVIDERS: ATTEND Internal Medicine
DX: C25.9 Malignant neoplasm of pancreas, unspecified (principal)
CPT/HCPCS: 36415; 80053; 85025

== ENCOUNTER → 2023-09-10 | Outpatient (CLI) | payer MEDICARE, BC ==
[2023-09-10 19:32] LABS: Basophils # (A) 0.01 X 10*3/uL (0.00-0.10); Basophils % (A) 0.5 %; Eosinophils # (A) 0.04 X 10*3/uL (0.04-0.35); Eosinophils % (A) 1.9 %; HCT 29.4 % (37.2-46.3); HGB 9.3 g/dL (12.0-15.0); Immature Grans, Automated 0 %; Lymphocytes # (A) 0.78 X 10*3/uL (0.90-5.00); Lymphocytes % (A) 37.9 %; MCH 29.4 pg (27.0-32.0); MCHC 31.6 g/dL (32.0-37.0); Mean Platelet Volume 10.4 FL (9.5-12.2); Monocytes # (A) 0.08 X 10*3/uL (0.20-1.00); Monocytes % (A) 3.9 %; NRBC Per 100 WBC 0 X 10*3/uL (0.00-0.01); Neutrophils # (A) 1.15 X 10*3/uL (1.80-7.70); Neutrophils % (A) 55.8 %; Platelet Count 188 X 10*3/uL (140-440); RBC 3.16 X 10*6/uL (4.10-5.20); RDW 14.9 % (11.5-14.5); WBC 2.06 X 10*3/uL (4.50-10.00)
[2023-09-11 02:26] LABS: ALT 29 U/L (8-44); AST 33 U/L (13-35); Albumin 3.7 g/dL (3.8-4.9); Albumin/Globulin Ratio 1.54 Ratio (1.60-3.17); Alkaline Phosphatase 179 U/L (41-126); Blood Urea Nitrogen 15.4 mg/dL (9.0-27.0); Calcium 9.2 mg/dL (8.7-10.3); Carbon Dioxide 26.7 mmol/L (21.6-31.8); Chloride 106 mmol/L (96-109); Globulin 2.4 g/dL (1.6-3.3); Glucose 113 mg/dL (70-110); Sodium 141 mmol/L (135-145); Total Bilirubin 0.4 mg/dL (0.3-1.2); Total Protein 6.1 g/dL (6.2-8.2)
== END | disposition home or self-care (01) ==
LOC: LABWHC1 15:16
PROVIDERS: ATTEND Internal Medicine
DX: C25.9 Malignant neoplasm of pancreas, unspecified (principal)
CPT/HCPCS: 36415; 80053; 85025

== ENCOUNTER → 2023-09-16 | Outpatient (CLI) | payer MEDICARE, BC ==
[2023-09-17 02:45] LABS: HCT 28.5 % (37.2-46.3); MCH 29.4 pg (27.0-32.0); MCHC 31.6 g/dL (32.0-37.0); MCV 93.1 FL (80.0-97.0); Mean Platelet Volume 11.5 FL (9.5-12.2); NRBC Per 100 WBC 0 X 10*3/uL (0.00-0.01); Platelet Count 120 X 10*3/uL (140-440); RBC 3.06 X 10*6/uL (4.10-5.20); RDW 14.8 % (11.5-14.5); WBC 1.51 X 10*3/uL (4.50-10.00)
[2023-09-17 02:53] LABS: Cancer Antigen 19-9 7.6 U/mL (0.0-34.9); Carcinoembryonic Antigen 4.7 ng/mL (0.0-4.9)
[2023-09-17 03:05] LABS: % Iron Saturation 27.78 (12.00-45.00); ALT 35 U/L (8-44); AST 36 U/L (13-35); Albumin 3.8 g/dL (3.8-4.9); Albumin/Globulin Ratio 1.58 Ratio (1.60-3.17); Alkaline Phosphatase 175 U/L (41-126); Blood Urea Nitrogen 12.8 mg/dL (9.0-27.0); Calcium 9.1 mg/dL (8.7-10.3); Carbon Dioxide 26.9 mmol/L (21.6-31.8); Chloride 104 mmol/L (96-109); Globulin 2.4 g/dL (1.6-3.3); Glucose 169 mg/dL (70-110); Iron 75 UG/DL (50-170); Potassium 4.3 mmol/L (3.5-5.5); Sodium 141 mmol/L (135-145); Total Bilirubin 0.3 mg/dL (0.3-1.2); Total Iron Binding Capacity 270 UG/DL (228-460); Total Protein 6.2 g/dL (6.2-8.2)
[2023-09-17 05:21] LABS: Basophils # (A) 0.01 X 10*3/uL (0.00-0.10); Basophils % (A) 0.7 %; Eosinophils # (A) 0.05 X 10*3/uL (0.04-0.35); Eosinophils % (A) 3.3 %; Immature Grans, Automated 0 %; Lymphocytes # (A) 0.63 X 10*3/uL (0.90-5.00); Lymphocytes % (A) 41.7 %; Monocytes # (A) 0.03 X 10*3/uL (0.20-1.00); Neutrophils # (A) 0.79 X 10*3/uL (1.80-7.70); Neutrophils % (A) 52.3 %; RBC Morphology Normal (Normal)
== END | disposition home or self-care (01) ==
LOC: LABWHC1 13:47
PROVIDERS: ATTEND Internal Medicine
DX: C25.9 Malignant neoplasm of pancreas, unspecified (principal); C18.7 Malignant neoplasm of sigmoid colon
CPT/HCPCS: 36415; 80053; 82306; 82378; 82607; 82728; 82746; 83540; 83550; 84466; 85025; 86301